=== PATIENT | female | born 1965 | race Caucasian/White ===

== ENCOUNTER 2017-04-04 17:46 | Emergency (ER) | payer OTHER ==
[~2017-04-04] VITALS: Ht 162.6 cm; Wt 73.1 kg
[~2017-04-04 17:46] MED LIST: AMBIEN10 MG PO; BACTROBAN 2%20 MG/GM NS; BENZTROPINE MESY2 MG PO; BUSPAR5 MG PO; DEPAKOTE PO; DEPAKOTE500 M1 PO; EFFEXOR-XR150 MG PO; EFFEXOR37.5 MG PO; GEODON60 MG PO; LEVAQUIN500 MG PO; NORCO 325 MG-7.1 TAB PO; NORCO 5/325 MG1 TAB PO; PROBIOTIC FORMU1 CAP PO; PROTONIX40 MG PO; PROZAC40 MG PO; REMERON15 MG PO; REMERON30 MG PO; SEROQUEL200 MG PO; SEROQUEL300 MG PO; WELLBUTRIN100 MG PO; XANAX0.5 MG PO; ZYPREXA5 MG PO
[2017-04-04 17:57] VITALS: BP 149/95
[2017-04-04] MEDS: PROMETHAZINE 25 MG/ML VIAL IM ONE (20:00)
[2017-04-04] MEDS: HYDROmorphone PFS 2 MG/ML SYR IVP ONE (20:00)
[2017-04-04] MEDS: NACL 0.9% 1,000 ML IV SCH (20:00)
[2017-04-04] MEDS: fentaNYL 0.05 MG/ML VIAL IVP ONE (20:28)
[2017-04-04 20:43] VITALS: BP 135/87
== END 2017-04-04 20:44 | disposition home or self-care (01) ==
LOC: MED 17:46
DX: N20.0 Calculus of kidney (principal); R03.0 Elevated blood-pressure reading, without diagnosis of hypertension; Z71.6 Tobacco abuse counseling; Z88.2 Allergy status to sulfonamides; Z88.8 Allergy status to other drugs, medicaments and biological substances; Z79.899 Other long term (current) drug therapy
CPT/HCPCS: 36415; 74176; 80053; 81001; 81025; 82150; 83690; 84703; 85025; 96361; 96372; 96374; 96375; 99285; J1170; J2550; J3010; J7030

== ENCOUNTER 2017-04-07 19:21 | Emergency (ER) | payer OTHER ==
[~2017-04-07] VITALS: Ht 162.6 cm; Wt 74.8 kg
[~2017-04-07 19:21] MED LIST changes: +ACET-2863 PO; +ALPR0.5T2 PO; -AMBIEN10 MG PO; -BACTROBAN 2%20 MG/GM NS; -BENZTROPINE MESY2 MG PO; -BUSPAR5 MG PO; -DEPAKOTE PO; -DEPAKOTE500 M1 PO; -EFFEXOR-XR150 MG PO; -EFFEXOR37.5 MG PO; -GEODON60 MG PO; -LEVAQUIN500 MG PO; +LEVO500T6 PO; +MIRT30TA PO; -NORCO 325 MG-7.1 TAB PO; -NORCO 5/325 MG1 TAB PO; +NUTR1CAP PO; +PANT40EC PO; -PROBIOTIC FORMU1 CAP PO; -PROTONIX40 MG PO; -PROZAC40 MG PO; +QUET200T PO; +QUET300T1 PO; -REMERON15 MG PO; -REMERON30 MG PO; -SEROQUEL200 MG PO; -SEROQUEL300 MG PO; +VENL150C1 PO; -WELLBUTRIN100 MG PO; -XANAX0.5 MG PO; -ZYPREXA5 MG PO
--- NOTE | 2017-04-07 19:31 | NUR ---
BIBA TO ER BED 5
--- NOTE | 2017-04-07 19:34 | NUR ---
51 Y/O F BIBA W/C/O R FLANK PAIN SINCE 2 DAYS AGO. PT STATES WAS SEEN 2 DAYS AGO IN THIS HOSPITAL AND DIAGNOSED WITH KIDNEY STONES. DENIES ANY N/V, VSS. ER MADE AWARE.
[2017-04-07 19:35] VITALS: BP 126/86
[2017-04-07] MEDS ORDERED: NACL 0.9% 1,000 ML IV ONE (19:40)
[2017-04-07 20:00] LABS: BASOPHILS # (AUTO) 0.2 K/uL (0.00-0.22); BASOPHILS % (AUTO) 3.4 % (0.0-2.0); EOSINOPHILS # (AUTO) 0.1 K/uL (0-0.4); EOSINOPHILS % (AUTO) 1.9 % (0.0-4.0); HEMATOCRIT 35.4 % (36-48); HEMOGLOBIN 11.6 g/dL (12.0-16.0); LYMPHOCYTES # (AUTO) 2.1 K/uL (2.5-16.5); LYMPHOCYTES % (AUTO) 37.6 % (20.5-51.1); MEAN CORPUSCULAR HEMOGLOBIN 32 pg (27-31); MEAN CORPUSCULAR HGB CONC 33 g/dL (33-37); MEAN CORPUSCULAR VOLUME 96 fL (80-94); MONOCYTES # (AUTO) 0.5 K/uL (0.8-1.0); MONOCYTES % (AUTO) 8.6 % (1.7-9.3); NEUTROPHILS # (AUTO) 2.6 K/uL (1.8-7.7); NEUTROPHILS % (AUTO) 48.5 % (42.2-75.2); PLATELET COUNT (AUTO) 185 K/uL (140-450); RED BLOOD CELL COUNT(AUTO) 3.68 MIL/uL (4.20-5.40); RED CELL DISTRIBUTION WIDTH 12.6 % (11.6-13.7); WHITE BLOOD COUNT (AUTO) 5.5 K/uL (4.8-10.8)
[2017-04-07 20:05] LABS: APPEARANCE,URINE CLOUDY (CLEAR); BILIRUBIN,URINE NEGATIVE (NEGATIVE); BLOOD, URINE 3+ (NEGATIVE); COLOR,URINE YELLOW (YELLOW); LEUKOCYTE ESTERASE ,URINE TRACE (NEGATIVE); NITRITE, URINE POSITIVE (NEGATIVE); UGLUCOSE NEGATIVE (NEGATIVE)
[2017-04-07 20:09] LABS: RBC,URINE TOO NUMEROUS TO COUN /HPF (0-5); WBC,URINE 6-15 (FEW) /HPF (0-5)
[2017-04-07] MEDS ORDERED: fentaNYL 0.05 MG/ML VIAL IVP ONE (20:10)
[2017-04-07] MEDS ORDERED: LEVOFLOXACIN 500 MG/D5W PREMIX 100 ML IV ONE (20:10)
[2017-04-07 20:14] LABS: PROTHROMBIN TIME 9.8 secs (10.8-13.4)
[2017-04-07 20:22] LABS: ANION GAP 9.7 (8-16); CARBON DIOXIDE 29.8 mmol/L (21-32); CREATININE 1.1 mg/dL (0.6-1.3); POTASSIUM 4.5 mmol/L (3.5-5.1)
[2017-04-07 20:35] LABS: ALBUMIN 3.6 g/dL (3.4-5.0); TOTAL BILIRUBIN 0.3 mg/dL (0.0-1.0)
[2017-04-07] MEDS ORDERED: HYDROmorphone PFS 2 MG/ML SYR IVP ONE (20:45)
--- NOTE | 2017-04-07 21:02 | NUR ---
PT ASKED ME TO CALL HER DAUGHTER CHARBLE FOR A RIDE HOME. CHARBEL'S ETA 30MIN. PT NOTIFIED OF ETA.
--- NOTE | 2017-04-07 21:04 | NUR ---
PT RESTING IN BED, VSS, CURRENTLY RECEIVING IV ANTIBITICS AND IV FLUIDS. NO OTHER S/S OF DISTRESS NOTED AT THE MOMENT.
[2017-04-07 21:14] VITALS: BP 125/74
--- NOTE | 2017-04-07 21:14 | NUR ---
Patient discharged with v/s stable. Written and verbal after care instructions given and explained. Patient alert, oriented and verbalized understanding of instructions. Ambulatory with steady gait. All questions addressed prior to discharge. ID band removed. Patient advised to follow up with PMD. Rx of MACROBID, NORCO, AND TRAMADOL given. Patient educated on indication of medication including possible reaction and side effects. Opportunity to ask questions provided and answered.
== END 2017-04-07 21:14 | disposition home or self-care (01) ==
LOC: MED 19:21
DX: M54.41 Lumbago with sciatica, right side (principal); N39.0 Urinary tract infection, site not specified; Z88.2 Allergy status to sulfonamides; Z88.6 Allergy status to analgesic agent
CPT/HCPCS: 36415; 80053; 81001; 81025; 85025; 85610; 85730; 87086; 96365; 96375; 99284; J1170; J1956; J3010; J7030

== ENCOUNTER 2017-05-27 17:59 | Inpatient (IN) | payer OTHER ==
[~2017-05-27] VITALS: Ht 162.6 cm; Wt 68.0 kg
[2017-05-27 18:06] VITALS: BP 129/79
--- NOTE | 2017-05-27 18:16 | NUR ---
Patient ambulated to bed 2. RN evaluating patient at bedside.
--- NOTE | 2017-05-27 18:40 | NUR ---
flu swab collected
[2017-05-27 18:52] LABS: APPEARANCE,URINE CLEAR (CLEAR); BILIRUBIN,URINE NEGATIVE (NEGATIVE); BLOOD, URINE NEGATIVE (NEGATIVE); COLOR,URINE YELLOW (YELLOW); LEUKOCYTE ESTERASE ,URINE NEGATIVE (NEGATIVE); NITRITE, URINE NEGATIVE (NEGATIVE); UGLUCOSE NEGATIVE (NEGATIVE)
--- NOTE | 2017-05-27 18:55 | NUR ---
c/o suprapubic pain with left flank tenderness-, severe chills generalized bodyaches x today
[2017-05-27] MEDS ORDERED: HYDROmorphone 1 MG/ML AMP IVP ONE ×2 (19:10→19:30)
[2017-05-27] MEDS ORDERED: ONDANSETRON 4 MG/2 ML VIAL IVP ONE (19:10)
[2017-05-27] MEDS ORDERED: NACL 0.9% 1,000 ML IV ONE ×2 (19:10→21:15)
[2017-05-27 19:49] LABS: BASOPHILS # (AUTO) 0.7 K/uL (0.00-0.22); EOSINOPHILS # (AUTO) 0.1 K/uL (0-0.4); HEMATOCRIT 39.7 % (36-48); HEMOGLOBIN 12.8 g/dL (12.0-16.0); LYMPHOCYTES # (AUTO) 1.5 K/uL (2.5-16.5); MEAN CORPUSCULAR HEMOGLOBIN 31 pg (27-31); MEAN CORPUSCULAR HGB CONC 32 g/dL (33-37); MEAN CORPUSCULAR VOLUME 95 fL (80-94); MONOCYTES # (AUTO) 0.8 K/uL (0.8-1.0); NEUTROPHILS # (AUTO) 5.3 K/uL (1.8-7.7); PLATELET COUNT (AUTO) 228 K/uL (140-450); RED BLOOD CELL COUNT(AUTO) 4.17 MIL/uL (4.20-5.40); RED CELL DISTRIBUTION WIDTH 12.3 % (11.6-13.7); WHITE BLOOD COUNT (AUTO) 8.4 K/uL (4.8-10.8)
[2017-05-27 19:58] LABS: PROTHROMBIN TIME 10.2 secs (10.8-13.4)
[2017-05-27 20:10] LABS: ALBUMIN 3.8 g/dL (3.4-5.0); CARBON DIOXIDE 21.5 mmol/L (21-32); CREATININE 1.4 mg/dL (0.6-1.3); POTASSIUM 3.5 mmol/L (3.5-5.1); TOTAL BILIRUBIN 0.3 mg/dL (0.0-1.0)
[2017-05-27] MEDS ORDERED: METOCLOPRAMIDE 10 MG/2 ML INJ VIAL IVP ONE (21:15)
[2017-05-27] MEDS ORDERED: HYDROmorphone PFS 2 MG/ML SYR IVP ONE (21:25)
[2017-05-27] MEDS ORDERED: ONDANSETRON 4 MG/2 ML VIAL IVP PRN (21:35)
[2017-05-27] MEDS ORDERED: LORazepam 2 MG/ML VIAL IM/IVP PRN (21:35)
[2017-05-27] MEDS ORDERED: PANTOPRAZOLE 40 MG INJ VIAL IVP SCH (21:35)
[2017-05-27] MEDS ORDERED: MORPHINE SULFATE 2 MG/ML SYR IVP PRN (21:35)
--- NOTE | 2017-05-27 21:49 | NUR ---
X-Ray at bedside.
[2017-05-27] MEDS ORDERED: ATA25 PO (22:10)
[2017-05-27] MEDS ORDERED: IBUP-2213 PO (22:10)
[2017-05-27] MEDS ORDERED: QUET300T1 PO (22:10)
[2017-05-27] MEDS ORDERED: PAX20 PO (22:10)
[2017-05-27] MEDS ORDERED: GABA300C PO (22:10)
[2017-05-27] MEDS ORDERED: PRAZ1CAP5 PO (22:10)
--- NOTE | 2017-05-27 22:11 | NUR ---
Patient will be admitted to care of DR GARCIA. Admited to MS 118. Will go to room 118. Belongings list completed. Report to
[2017-05-27] MEDS ORDERED: PRE.625 PO (22:13)
[2017-05-27 22:30] VITALS: BP 140/92
--- NOTE | 2017-05-27 22:30 | NUR ---
PT ARRIVED VIA WHEELCHAIR, PT STABLE, NO DISTRESS NOTED, AAOX4, SKIN INTACT, IV TO L AC 20 G, NG TUBE IN PLACE, INTERMITTENT SUCTIONING, CALL LIGHT WITHIN REACH, INITIAL ASSESSMENT DONE, ALL SAFETY PRECAUTION MET, WILL CONTINUE TO MONITOR.
--- NOTE | 2017-05-27 22:45 | NUR ---
PT IV D/C, CATHETER INTACT, NEW IV INSERTED ON THE L HAND 24G, DRESSING CLEAN DRY AND INTACT, INFUSING WELL, PT TOLERATED WELL, LEFT RESTING, NO DISTRESS NOTED, CALL LIGHT WITHIN REACH, WILL CONTINUE TO MONITOR.
[2017-05-27] MEDS ORDERED: LORazepam 2 MG/ML VIAL ONE (23:37)
--- NOTE | 2017-05-27 23:45 | NUR ---
PT WAS AGITATED.TOOK ORDER FOR ATIVAN 0.5 MG IVP.TOOK OUT VIAL OF 2MG,BUT INJECTED 0.5MG.1.5 MG WASTED.
--- NOTE | 2017-05-28 00:18 | NUR ---
TALKED TO DR. GARCIA REGARDING PT HOME MEDICATION, DR TO ORDER 60MG PAXIL PO QD AT HS, AND TO KEEP SEROQUEL 200MG PO BID. WILL PUT IN ORDER AND ADMINISTER MEDICATION PER ORDER.
[2017-05-28] MEDS ORDERED: QUEtiapine FUMARATE 100 MG TAB PO SCH ×3 (00:35→21:00)
[2017-05-28] MEDS ORDERED: PARoxetine 20 MG TAB PO SCH (00:35)
--- NOTE | 2017-05-28 00:58 | NUR ---
DUE MEDICATION GIVEN, PT TOLERATED WELL, NO DISTRESS NOTED, CALL LIGHT WITHIN REACH, WILL CONTINUE TO MONITOR.
[2017-05-28] MEDS: NACL 0.9% 1,000 ML IV SCH ×4 (01:04→23:28)
[2017-05-28] MEDS: HYDROmorphone 1 MG/ML AMP IVP PRN ×5 (01:54→19:43)
--- NOTE | 2017-05-28 01:54 | NUR ---
PT C/O OF PAIN 8/10 ON THE LLQ RADIATING TO THE BACK, PAIN MEDICATION GIVEN, PT TOLERATED WELL, CALL LIGHT WITHIN REACH, WILL CONTINUE TO MONITOR.
--- NOTE | 2017-05-28 06:06 | NUR ---
PT CRYING AND C/O PAIN 8/10 ON THE L ABD RADIATING TO THE BACK, PAIN MEDICATION GIVEN, PT TOLERATED WELL, WILL CONTINUE TO MONITOR.
--- NOTE | 2017-05-28 07:40 | NUR ---
ENDORSED PT TO DAY SHIFT NURSE AILEEN, PT STABLE NO DISTRESS NOTED.
[2017-05-28 07:53] LABS: BASOPHILS # (AUTO) 0.2 K/uL (0.00-0.22); BASOPHILS % (AUTO) 3.2 % (0.0-2.0); EOSINOPHILS # (AUTO) 0.1 K/uL (0-0.4); EOSINOPHILS % (AUTO) 1.3 % (0.0-4.0); HEMATOCRIT 34.4 % (36-48); HEMOGLOBIN 11.3 g/dL (12.0-16.0); LYMPHOCYTES # (AUTO) 1.4 K/uL (2.5-16.5); LYMPHOCYTES % (AUTO) 21.5 % (20.5-51.1); MEAN CORPUSCULAR HEMOGLOBIN 31 pg (27-31); MEAN CORPUSCULAR HGB CONC 33 g/dL (33-37); MEAN CORPUSCULAR VOLUME 96 fL (80-94); MONOCYTES # (AUTO) 0.4 K/uL (0.8-1.0); MONOCYTES % (AUTO) 6.7 % (1.7-9.3); NEUTROPHILS # (AUTO) 4.5 K/uL (1.8-7.7); NEUTROPHILS % (AUTO) 67.3 % (42.2-75.2); PLATELET COUNT (AUTO) 184 K/uL (140-450); RED BLOOD CELL COUNT(AUTO) 3.59 MIL/uL (4.20-5.40); RED CELL DISTRIBUTION WIDTH 12.1 % (11.6-13.7); WHITE BLOOD COUNT (AUTO) 6.6 K/uL (4.8-10.8)
[2017-05-28 08:00] LABS: ANION GAP 12.1 (8-16); CARBON DIOXIDE 22.6 mmol/L (21-32); POTASSIUM 3.7 mmol/L (3.5-5.1)
--- NOTE | 2017-05-28 08:00 | NUR ---
PATIENT HAS BEEN SCREENED AND CATEGORIZED MODERATE NUTRITION RISK. PATIENT WILL BE SEEN WITHIN 3-5 DAYS OF ADMISSION. 05/30/17 - 06/01/17 JYOTI WHALEY MBA, RD
--- NOTE | 2017-05-28 08:00 | NUR ---
PT RECEIVED FROM [facility] NURSE, PT IN BED AWAKE ALERT AND ORIENTED X4. NO PAIN OR RESP DISTRESS NOTED. PT IA RESPONSIVE TO VERBAL COMMAND WELL. PT IS NPO AT PRESENT. IV FLUID INFUSING ORDERED. V/S STABLE.
[2017-05-28 08:09] LABS: MAGNESIUM 1.6 mg/dL (1.8-2.4); PHOSPHORUS 3.4 mg/dL (2.5-4.9); TOTAL BILIRUBIN 0.3 mg/dL (0.0-1.0)
[2017-05-28 08:45] VITALS: BP 98/63
[2017-05-28] MEDS: VENLAFAXINE XR 75 MG CAPER PO SCH (09:20)
[2017-05-28] MEDS: ENOXAPARIN 30 MG/0.3 ML SYR SUBQ SCH (09:22)
[2017-05-28] MEDS: ACETAMINOPHEN 325 MG TAB PO PRN (09:23)
[2017-05-28] MEDS ORDERED: hydrOXYzine HCL 25 MG TAB PO PRN (13:30)
--- NOTE | 2017-05-28 14:05 | NUR ---
PT UP SITTING IN BED HAVING CLEAR LIQUID DIET. ORDERS FOR PT BE TO DC HOME TODAY IF ABLE TO TOLERATE DIET WELL. NO N/V AT THIS TIME.
[2017-05-28 16:00] VITALS: BP 100/58
[2017-05-28] MEDS: GABAPENTIN 300 MG CAP PO SCH (18:17)
--- NOTE | 2017-05-28 18:50 | NUR ---
PT WAS UNABLE TO TOLERATE CLEAR LIQUIDS WELL. PT VOMITED 50ML OF GREENISH JELLO AFTER EATING FOR THE FIRST TIME. ZOFRAN 4 MG IV WAS GIVEN. DR EMMANUEL WA STILL AT THE STATION AND WAS INFORMED. DISCHARGE ON HOLD. PT IS CURRENTLY IN BED TALKING TO HER . NO ACUTE DISTRESS NOTED. V/S STABLE.
--- NOTE | 2017-05-28 19:20 | NUR ---
RECEIVED BEDSIDE REPORT FROM DAY SHIFT NURSE AILEEN RN, PT STABLE NO DISTRESS NOTED, AAOX4, IV WAS DISCONNECTED, CURRENTLY REPORTED OF PAIN TO THE L ABD OF 02/10, WILL MEDICATE WHEN IV HAS BEEN INSERTED, INITIAL ASSESSMENT DONE, ALL SAFETY PRECAUTION MET, FAMILY BY BEDSIDE, CALL LIGHT WITHIN REACH, WILL CONTINUE TO MONITOR.
--- NOTE | 2017-05-28 19:27 | NUR ---
NEW IV INSERTED, PT TOLERATED WELL, NO DISTRESS NOTED, CALL LIGHT WITHIN REACH, WILL CONTINUE TO MONITOR.
[2017-05-28] MEDS: QUEtiapine FUMARATE 100 MG TAB PO SCH (20:54)
[2017-05-28] MEDS: MIRTAZAPINE 15 MG TAB PO SCH (20:55)
[2017-05-28] MEDS ORDERED: MAG SULF 2000 MG/WATER PREMIX 50 ML IV ONE (20:55)
[2017-05-28] MEDS: PARoxetine 20 MG TAB PO SCH (20:55)
[2017-05-28] MEDS: LORazepam 2 MG/ML VIAL IM/IVP PRN (20:56)
[2017-05-28] MEDS ORDERED: MAG SULF 2000 MG/WATER PREMIX 50 ML IV SCH (20:56)
--- NOTE | 2017-05-28 20:56 | NUR ---
DUE MEDICATION GIVEN, PT TOLERATED WELL, CALL LIGHT WITHIN REACH, WILL CONTINUE TO MONITOR.
--- NOTE | 2017-05-28 23:27 | NUR ---
DUE MEDICATION GIVEN, PT SLEEPING, EASY TO AROUSE, NO DISTRESS NOTED, CALL LIGHT WITHIN REACH. WILL CONTINUE TO MONITOR.
[2017-05-29] VITALS: BP 117/76
--- NOTE | 2017-05-29 02:15 | NUR ---
CHECKED ON PT, PT STABLE, SLEEPING, NO S/S OF DISTRESS, CALL LIGHT WITHIN REACH, WILL CONTINUE TO MONITOR.
[2017-05-29] MEDS: NACL 0.9% 1,000 ML IV SCH ×2 (03:41→17:29)
[2017-05-29] MEDS: HYDROmorphone 1 MG/ML AMP IVP PRN ×2 (04:40→08:52)
--- NOTE | 2017-05-29 04:40 | NUR ---
PT C/O OF PAIN ON THE ABD, PARTICULARLY ON THE LEFT SIDE, ACHING AND SORE, 02/10, ADMINISTERED PAIN MEDICATION, PT TOLERATED WELL, CALL LIGHT WITHIN REACH, WILL CONTINUE TO MONITOR.
[2017-05-29] MEDS: QUEtiapine FUMARATE 100 MG TAB PO SCH ×2 (05:38→21:16)
[2017-05-29] MEDS: PANTOPRAZOLE 40 MG TABEC PO SCH (05:38)
--- NOTE | 2017-05-29 07:15 | NUR ---
GAVE BEDSIDE REPORT TO DAY SHIFT NURSE AILEEN RN, ENDORSED PLAN OF CARE TO RN, PT STABLE NO DISTRESS NOTED.
--- NOTE | 2017-05-29 07:50 | NUR ---
PT IN BED AWAKE ALERT AND ORIENTED X4. PT IS RESPONSIVE TO VERBAL COMMAND. NO PAIN OR SOB NOTED. IVF INFUSING ORDERED.
[2017-05-29 08:00] VITALS: BP 112/72
[2017-05-29 08:09] LABS: BASOPHILS # (AUTO) 0.2 K/uL (0.00-0.22); BASOPHILS % (AUTO) 4.4 % (0.0-2.0); EOSINOPHILS # (AUTO) 0.1 K/uL (0-0.4); HEMATOCRIT 34.9 % (36-48); HEMOGLOBIN 11.4 g/dL (12.0-16.0); LYMPHOCYTES # (AUTO) 1.1 K/uL (2.5-16.5); LYMPHOCYTES % (AUTO) 24.7 % (20.5-51.1); MEAN CORPUSCULAR HEMOGLOBIN 31 pg (27-31); MEAN CORPUSCULAR HGB CONC 33 g/dL (33-37); MEAN CORPUSCULAR VOLUME 96 fL (80-94); MONOCYTES # (AUTO) 0.4 K/uL (0.8-1.0); MONOCYTES % (AUTO) 8.6 % (1.7-9.3); NEUTROPHILS # (AUTO) 2.5 K/uL (1.8-7.7); NEUTROPHILS % (AUTO) 60.3 % (42.2-75.2); PLATELET COUNT (AUTO) 139 K/uL (140-450); RED BLOOD CELL COUNT(AUTO) 3.64 MIL/uL (4.20-5.40); RED CELL DISTRIBUTION WIDTH 11.7 % (11.6-13.7); WHITE BLOOD COUNT (AUTO) 4.3 K/uL (4.8-10.8)
[2017-05-29 08:25] LABS: ALBUMIN 2.8 g/dL (3.4-5.0); ANION GAP 9.5 (8-16); CARBON DIOXIDE 25.3 mmol/L (21-32); CREATININE 0.9 mg/dL (0.6-1.3); POTASSIUM 3.8 mmol/L (3.5-5.1); TOTAL BILIRUBIN 0.3 mg/dL (0.0-1.0)
[2017-05-29] MEDS: VENLAFAXINE XR 75 MG CAPER PO SCH (08:53)
[2017-05-29] MEDS: LEVOFLOXACIN 500 MG TAB PO SCH (08:54)
[2017-05-29] MEDS: PRAZOSIN 1 MG CAP PO SCH (08:54)
[2017-05-29] MEDS: GABAPENTIN 300 MG CAP PO SCH ×3 (08:55→17:29)
[2017-05-29] MEDS ORDERED: VENLAFAXINE XR 75 MG CAPER PO SCH (09:00)
--- NOTE | 2017-05-29 09:00 | NUR ---
C/O ABD PAIN 04/12, DILAUDID 1MG IVP GIVEN FOR PAIN. NO COMPLAINT OF N/V
[2017-05-29] MEDS: ENOXAPARIN 30 MG/0.3 ML SYR SUBQ SCH (09:02)
[2017-05-29] MEDS: ACETAMINOPHEN 325 MG TAB PO PRN (15:08)
[2017-05-29] MEDS ORDERED: SODIUM PHOSPHATE 118 ML ENEM RC PRN (15:10)
[2017-05-29 16:00] VITALS: BP 115/68
[2017-05-29] MEDS: HYDROmorphone PFS 2 MG/ML SYR IVP PRN (17:30)
--- NOTE | 2017-05-29 19:30 | NUR ---
RECEIVED BEDSIDE REPORT FROM DAY SHIFT NURSE AILEEN RN, PT STABLE, NO DISTRESS NOTED, IV TO L FA 24 G RUNNING NS @ 50ML/HR, INFUSING WELL, PT REPORTED HAVING PAIN OF 8/10 ON THE STOMACH, REPOSITIONED PT AND GAVE HOT TOWEL, MEDICATION IS NOT DUE YET, WILL MEDICATE WHEN IT IS DUE, PT STATED UNDERSTANDING, SKIN INTACT, INITIAL ASSESSMENT DONE, ALL SAFETY PRECAUTION MET, CALL LIGHT WITHIN REACH, WILL CONTINUE TO MONITOR.
--- NOTE | 2017-05-29 20:44 | NUR ---
PT IS MEDICATED WITH DILAUDID 1MG IVP FOR ABD PAIN. PT TOLERATED CLEAR LIQUID DIET WITHOUT ANY N/V. PT BEING ENCOURAGED TO AMBULATE IN THE ROOM. OFFERED ENEMA TO PT BUT REFUSED, SHE WANTS TO TRY LESS INVASIVE MEDS FIRST. ORDER FOR MOM OBTAINED FROM [facility]
--- NOTE | 2017-05-29 20:45 | NUR ---
PT STANDING IN THE MIDDLE OF THE HALLWAY CRYING LOUDLY BECAUSE OF ABD PAIN. DR MARIA DEL CARMEN COCHRAN CALLED FOR MORE PAIN ORDERS. MORPHINE SULFATE 2MG IVP GIVEN AT 1121 FOR PAIN 04/12
--- NOTE | 2017-05-29 20:47 | NUR ---
PT KEEPS C/O ABD PAIN DOES DOES NOT GO AWAY. PT ANTOINE ANY N/V. TYLENOL 650MG PO GIVEN FOR PAIN 11/10. PT REMAINS NPO FOR NOW. DR EMMANUEL IS AT THE STATION MAKING ROUNDS.
[2017-05-29] MEDS ORDERED: MAGNESIUM HYDROXIDE 2400 MG/30 ML UDC PO PRN (21:00)
[2017-05-29] MEDS: PARoxetine 20 MG TAB PO SCH (21:15)
[2017-05-29] MEDS: MIRTAZAPINE 15 MG TAB PO SCH (21:16)
--- NOTE | 2017-05-29 21:16 | NUR ---
DUE MEDICATION GIVEN, PT TOLERATED WELL, STABLE, NO DISTRESS NOTED, CALL LIGHT WITHIN REACH, WILL CONTINUE TO MONITOR.
[2017-05-29] MEDS: LORazepam 2 MG/ML VIAL IM/IVP PRN (21:47)
--- NOTE | 2017-05-29 21:47 | NUR ---
PT C/O OF PAIN 10/10 AND FEELING AGITATED, REQUESTED ATIVAN, PAIN MEDICATION IS NOT DUE, ATIVAN WAS GIVEN, PT TOLERATED WELL, NO DISTRESS NOTED, CALL LIGHT WITHIN REACH, WILL CONTINUE TO MONITOR.
--- NOTE | 2017-05-29 22:47 | NUR ---
PT SLEEPING, EASY TO AROUSE, NO DISTRESS NOTED, CALL LIGHT WITHIN REACH, WILL CONTINUE TO MONITOR.
[2017-05-29 22:56] LABS: BARBITURATE, URINE NEG. ng/ml (NEG <=200); BENZODIAZEPINE, URINE NEG. ng/mL (NEG <=200); CANNABINOID, URINE POS. ng/mL (NEG <=50); COCAINE, URINE NEG. ng/mL (NEG <=300); OPIATE, URINE POS. ng/mL (NEG <=2000); PHENCYCLIDINE SCREEN,URINE NEG. ng/mL (NEG <=25)
[2017-05-30] VITALS: BP 140/95
--- NOTE | 2017-05-30 00:02 | NUR ---
PT C/O OF PAIN 9/10 ON THE STOMACH, PAIN MEDICATION GIVEN, PT STABLE, NO DISTRESS NOTED.
[2017-05-30] MEDS: HYDROmorphone PFS 2 MG/ML SYR IVP PRN ×3 (00:42→13:11)
--- NOTE | 2017-05-30 03:20 | NUR ---
CHECKED ON PT, PT SLEEPING, EASY TO AROUSE, REPORTED HAVING NO PAIN AT THIS MOMENT, PT STABLE, CALL LIGHT WITHIN REACH, WILL CONTINUE TO MONITOR.
[2017-05-30] MEDS: PANTOPRAZOLE 40 MG TABEC PO SCH (05:49)
[2017-05-30] MEDS: QUEtiapine FUMARATE 100 MG TAB PO SCH (05:50)
--- NOTE | 2017-05-30 05:50 | NUR ---
DUE MEDICATION GIVEN, PT TOLERATED WELL, NO DISTRESS NOTED, CALL LIGHT WITHIN REACH, WILL CONTINUE TO MONITOR.
[2017-05-30] MEDS: NACL 0.9% 1,000 ML IV SCH (05:56)
--- NOTE | 2017-05-30 06:44 | NUR ---
PT C/O OF PAIN IN THE ABD OF 01/10, PAIN MEDICATION GIVEN, PT TOLERATED WELL, NO DISTRESS NOTED, CALL LIGHT WITHIN REACH.
--- NOTE | 2017-05-30 07:11 | NUR ---
ASSUMED CONTINUITY OF CARE. NO SIGNS AND SYMPTOMS OF ACUTE DISTRESS NOTED. INITIAL ASSESSMENT DONE. EXPLAINED DIAGNOSIS, PLAN OF CARE, PAIN MANAGEMENT TEACHING, USE OF CALL LIGHT/BED/TV/BATHROOM. VERBALIZED UNDERSTANDING. CALL LIGHT WITHIN REACH.
--- NOTE | 2017-05-30 07:11 | NUR ---
GAVE BEDSIDE REPORT TO DAY SHIFT NURSE, PT STABLE, NO DISTRESS NOTED, SLEEPING, CALL LIGHT WITHIN REACH.
--- NOTE | 2017-05-30 07:15 | NUR ---
Patient's Plan of Care was discussed and reviewed with EXTENSION SPECIALIST: Carolina XIONG
[2017-05-30 08:00] VITALS: BP 117/72
[2017-05-30] MEDS ORDERED: PSYLLIUM 12.2 GM/PKT PO SCH (09:00)
[2017-05-30] MEDS ORDERED: DOCUSATE SODIUM 100 MG GELCAP PO SCH (09:00)
[2017-05-30] MEDS: GABAPENTIN 300 MG CAP PO SCH ×3 (09:16→17:00)
[2017-05-30] MEDS: LEVOFLOXACIN 500 MG TAB PO SCH (09:17)
[2017-05-30] MEDS: PRAZOSIN 1 MG CAP PO SCH (09:17)
[2017-05-30] MEDS: VENLAFAXINE XR 75 MG CAPER PO SCH (09:17)
[2017-05-30] MEDS: ENOXAPARIN 30 MG/0.3 ML SYR SUBQ SCH (09:22)
--- NOTE | 2017-05-30 10:30 | NUR ---
EXPLAINED ABOUT MRSA NARES POSITIVE RESULTS AND ISOLATION PRECAUTION EDUCATION. VERBALIZED UNDERSTANDING.
[2017-05-30 12:00] VITALS: BP 119/75
--- NOTE | 2017-05-30 14:03 | NUR ---
CM NOTE INITIAL REVIEW FAXED TO [facility] [phone] CM DECEMBER # [phone]
--- NOTE | 2017-05-30 14:30 | NUR ---
MAGNOLIA GREEN CAME, CHECKED PT. CHART AND SEEN PT.
[2017-05-30] MEDS: LORazepam 2 MG/ML VIAL IM/IVP PRN (15:47)
--- NOTE | 2017-05-30 16:31 | NUR ---
1500 SPOKE WITH [facility] REGARDING PT REQUESTING TRANSPORTATION TO GO HOME. PER DECEMBER TRANSPORT ONLY COVERED IF PT REQUIRES GURNEY. PER PT SHE IS SURE HER INSURANCE PROVIDES TRANSPORTATION AND STATED SHE HAS HAD IT COVERED IN THE PAST. AFTER THIS TREASURY ASSOCIATE CALLED NUMEROUS NUMBERS WAS INFORMED THAT [facility] NEEDED TO BE ACCESSED AND A FORM PRINTED AND FILLED OUT AND SENT TO SPECIFIED FAX THIS WAS RELAYED BY [facility]SP[facility] THAT THIS TREASURY ASSOCIATE WAS TRANSFERRED TO BY [facility] [facility]. WHEN REVIEWED WHICH WOULD BE A MINIMUM OF 2 HRS THEN TRANSPORT WILL BE CALLED. THIS WAS TOLD TO THIS TREASURY ASSOCIATE AT 1630.
--- NOTE | 2017-05-30 17:00 | NUR ---
EXPLAINED ABOUT MD D/C ORDER, D/C INSTRUCTIONS AND TEACHING, MD FOLLOW-UP, PAIN MANAGEMENT TEACHING, DIAGNOSIS, DIET, MD D/C PRESCRIPTION LIST EDUCATION. VERBALIZED UNDERSTANDING. CALL LIGHT WITHIN REACH.
--- NOTE | 2017-05-30 18:05 | NUR ---
D/C HOME VIA WHEELCHAIR WITH ASSISTANCE FROM KALANI MENDEZ PROVIDED WITH TAXI VOUCHER FROM [employer]. AWAKE, ALERT, AND ORIENTED X4. SPEECH CLEAR. NO C/O PAIN. NO SOB, NOTED. IN STABLE CONDITION. INFORMED CHARGE NURSE AZRA CLEANING.
== END 2017-05-30 18:05 | disposition home or self-care (01) | DRG 247 ==
LOC: MED 17:59 → MTU 21:39
PROVIDERS: ADMIT Hospitalist; ATTEND Hospitalist
DX: K56.7 Ileus, unspecified (principal); F31.9 Bipolar disorder, unspecified; K59.00 Constipation, unspecified; F43.10 Post-traumatic stress disorder, unspecified; Z88.6 Allergy status to analgesic agent; Z88.2 Allergy status to sulfonamides
CPT/HCPCS: 36415; 71010; 80053; 80305; 81003; 82150; 83605; 83690; 83735; 84100; 84484; 85025; 85610; 87040; 87081; 87804; 93005; 96361; 96374; 96375; 96376; 99285; C9113; J1170; J1650; J2060; J2270; J2405; J2765; J3475; J7030; J7060; Q0092

== ENCOUNTER 2017-08-05 15:29 | Emergency (ER) | payer SELFPAY ==
[~2017-08-05 15:29] MED LIST changes: -ACET-2863 PO; +ATA25 PO; +GABA300C PO; +PAX20 PO; +PRAZ1CAP5 PO; +PRE.625 PO
--- NOTE | 2017-08-05 15:55 | NUR ---
NA IN LOBBY. WILL TRY AGAIN.
--- NOTE | 2017-08-05 16:10 | NUR ---
NA. WILL CALL TO F/U.
--- NOTE | 2017-08-05 16:30 | NUR ---
PATIENT LEFT WITHOUT BEING SEEN BY DR. JOSEPH. NO FURTHER CARE PROVIDED FOR PATIENT.
[2017-08-05] MEDS ORDERED: ONDANSETRON ODT 4 MG TABLET (17:24)
== END 2017-08-05 16:30 | disposition left against medical advice (07) ==
LOC: MED 15:29
DX: R51 Headache (principal); Z53.21 Procedure and treatment not carried out due to patient leaving prior to being seen by health care provider

== ENCOUNTER 2017-08-05 17:02 | Emergency (ER) | payer OTHER ==
[~2017-08-05] VITALS: Ht 162.6 cm; Wt 71.7 kg
[2017-08-05 17:16] VITALS: BP 123/85
[2017-08-05] MEDS ORDERED: ONDANSETRON ODT 4 MG TABLET (17:24)
--- NOTE | 2017-08-05 17:27 | NUR ---
WARM PACK APPLIED TO NASAL AREA FOR COMFORT.
--- NOTE | 2017-08-05 18:29 | NUR ---
PATIENT AMBULATED TO ER BED 4
--- NOTE | 2017-08-05 18:50 | NUR ---
52/F C/O R NOSE MRSA INFECTION X2DAYS. PT STS PAIN IS RADIATING TO RIGHT SIDE FACE. ALSO C/O BLADDER PAIN WELL. DENIES FEVER, PT STS TAKING TYLENOL AND MOTRIN AROUND THE CLOCK. AAOx4, PERRLA, BREATHING EVEN AND UNLABORED. ERMD NOTIFIED OF PATIENT STATUS.
--- NOTE | 2017-08-05 19:25 | NUR ---
Patient being evaluated by physician at bedside.
--- NOTE | 2017-08-05 19:26 | NUR ---
Pt report given to KAMI ROY. Transfer of care at this time.
[2017-08-05] MEDS ORDERED: oxyCODONE/APAP 5/325 MG 1 TAB TAB PO ONE (19:35)
[2017-08-05] MEDS ORDERED: cefTRIAXone 1,000 MG in LIDOCAINE MPF 1% - **ER/OR** 2.1 ML IM ONE (19:35)
--- NOTE | 2017-08-05 20:37 | NUR ---
Patient discharged with v/s stable. Written and verbal after care instructions given and explained. Patient alert, oriented and verbalized understanding of instructions. Ambulatory with steady gait. All questions addressed prior to discharge. ID band removed. Patient advised to follow up with PMD. Rx of Percocetg tab, Clindamycin given. Patient educated on indication of medication including possible reaction and side effects. Opportunity to ask questions provided and answered.
[2017-08-05 20:55] VITALS: BP 123/85
== END 2017-08-05 20:37 | disposition home or self-care (01) ==
LOC: MED 17:02
DX: J34.0 Abscess, furuncle and carbuncle of nose (principal); B37.3 Candidiasis of vulva and vagina; F17.210 Nicotine dependence, cigarettes, uncomplicated; Z79.899 Other long term (current) drug therapy; Z88.2 Allergy status to sulfonamides; Z88.8 Allergy status to other drugs, medicaments and biological substances
CPT/HCPCS: 81002; 81025; 96372; 99283; J0696; J2001

== ENCOUNTER 2017-09-15 15:59 | Inpatient (IN) | payer OTHER ==
[~2017-09-15] VITALS: Ht 162.6 cm; Wt 74.4 kg
[~2017-09-15 15:59] MED LIST changes: +ACET-9525 PO; -ALPR0.5T2 PO; -ATA25 PO; -GABA300C PO; -LEVO500T6 PO; -MIRT30TA PO; -NUTR1CAP PO; +ONDA4ODT1 PO; -PANT40EC PO; -PRAZ1CAP5 PO; +PRAZ5CAP PO; -PRE.625 PO; -QUET200T PO; -VENL150C1 PO
[2017-09-15 16:29] VITALS: BP 138/56
--- NOTE | 2017-09-15 17:00 | NUR ---
52/F present to ED c/o lower back pain exacerbation x last night with dysuria, urgency, frequency, nausea. 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 AAOx4, perrla, breathing even and unlabored. ermd notified of patient status.
--- NOTE | 2017-09-15 17:20 | NUR ---
Patient being evaluated by physician at bedside.
[2017-09-15] MEDS ORDERED: ONDANSETRON 4 MG/2 ML VIAL IVP ONE (17:30)
[2017-09-15] MEDS ORDERED: MORPHINE SULFATE 4 MG/ML SYR IVP ONE (17:30)
[2017-09-15] MEDS ORDERED: NACL 0.9% 1,000 ML IV ONE ×2 (17:30→19:15)
[2017-09-15 17:42] LABS: APPEARANCE,URINE SL CLOUDY (CLEAR); BILIRUBIN,URINE NEGATIVE (NEGATIVE); BLOOD, URINE 3+ (NEGATIVE); COLOR,URINE YELLOW (YELLOW); LEUKOCYTE ESTERASE ,URINE NEGATIVE (NEGATIVE); NITRITE, URINE NEGATIVE (NEGATIVE); UGLUCOSE NEGATIVE (NEGATIVE)
[2017-09-15 17:50] LABS: RBC,URINE 80-100 /HPF (0-5); WBC,URINE 0-5 (RARE) /HPF (0-5)
[2017-09-15] MEDS ORDERED: LORazepam 2 MG/ML VIAL IVP ONE (18:25)
[2017-09-15 18:57] LABS: BASOPHILS # (AUTO) 0.2 K/uL (0.00-0.22); BASOPHILS % (AUTO) 4.3 % (0.0-2.0); EOSINOPHILS # (AUTO) 0.1 K/uL (0-0.4); EOSINOPHILS % (AUTO) 1.2 % (0.0-4.0); HEMATOCRIT 31.9 % (36-48); HEMOGLOBIN 10.7 g/dL (12.0-16.0); LYMPHOCYTES % (AUTO) 17.2 % (20.5-51.1); MEAN CORPUSCULAR HEMOGLOBIN 31 pg (27-31); MEAN CORPUSCULAR HGB CONC 34 g/dL (33-37); MEAN CORPUSCULAR VOLUME 92 fL (80-94); MONOCYTES # (AUTO) 0.6 K/uL (0.8-1.0); MONOCYTES % (AUTO) 10.2 % (1.7-9.3); NEUTROPHILS # (AUTO) 3.9 K/uL (1.8-7.7); NEUTROPHILS % (AUTO) 67.1 % (42.2-75.2); PLATELET COUNT (AUTO) 242 K/uL (140-450); RED BLOOD CELL COUNT(AUTO) 3.46 MIL/uL (4.20-5.40); RED CELL DISTRIBUTION WIDTH 13.3 % (11.6-13.7); WHITE BLOOD COUNT (AUTO) 5.8 K/uL (4.8-10.8)
[2017-09-15 18:58] LABS: ANION GAP 14.1 (8-16); CARBON DIOXIDE 23.8 mmol/L (21-32); CREATININE 1.2 mg/dL (0.6-1.3); POTASSIUM 3.9 mmol/L (3.5-5.1)
[2017-09-15 19:04] LABS: ALBUMIN 3.3 g/dL (3.4-5.0); TOTAL BILIRUBIN 0.3 mg/dL (0.0-1.0)
[2017-09-15] MEDS ORDERED: HYDROmorphone 1 MG/ML AMP IVP ONE (19:05)
--- NOTE | 2017-09-15 19:15 | NUR ---
REPORT RECEIVED FROM KAMI SHELL
--- NOTE | 2017-09-15 19:18 | NUR ---
Pt report given to addi seals. Transfer of care at this time.
[2017-09-15] MEDS ORDERED: HYDROmorphone PFS 2 MG/ML SYR ONE (19:23)
[2017-09-15] MEDS ORDERED: MORPHINE SULFATE 4 MG/ML SYR IVP PRN (19:45)
[2017-09-15] MEDS ORDERED: ACETAMINOPHEN 325 MG TAB PO PRN (19:45)
[2017-09-15] MEDS ORDERED: ONDANSETRON 4 MG/2 ML VIAL IVP PRN (19:45)
[2017-09-15 19:59] LABS: CHOL/HDL RATIO 1.9 (1-4.5)
--- NOTE | 2017-09-15 20:20 | NUR ---
Patient will be admitted to care of DR EMMANUEL. Admited to M/S. Will go to room 118. Belongings list completed. Report to KAMI GARZA.
--- NOTE | 2017-09-15 21:30 | NUR ---
Admitted from ER , with chief complaint of ABDOMINAL PAIN , 52 y/o ,Female, Anxious, PT AAOX4, NO S/S OF ACUTE DISTRESS. PT DENIES PAIN AT THIS TIME. PT PULLED IV OUT WHILE WAITING TO BE TRANSFERRED, PT oriented to call light, bed, phone,television, bathroom, smoking policy,visiting hours, procedures, ID bracelet on. Belongings list checked. CALL LIGHT WITHIN REACH. SAFETY MEASURES ENSURED. WILL CONTINUE TO MONITOR.
[2017-09-15 22:39] VITALS: BP 155/89
[2017-09-15] MEDS: NACL 0.9% 1,000 ML IV SCH (23:42)
[2017-09-16] VITALS: BP 131/77
[2017-09-16] MEDS: MORPHINE SULFATE 4 MG/ML SYR IVP PRN ×2 (00:14→04:17)
--- NOTE | 2017-09-16 03:39 | NUR ---
PT SLEEPING IN BE. NO S/S OF ACUTE DISTRESS. WILL CONTINUE TO MONITOR.
[2017-09-16] MEDS: NACL 0.9% 1,000 ML IV SCH (05:17)
--- NOTE | 2017-09-16 06:37 | NUR ---
PATIENT HAS BEEN SCREENED AND CATEGORIZED LOW NUTRITION RISK. PATIENT WILL BE SEEN WITHIN 7 DAYS OF ADMISSION. 09/21/17 DELMAR WEBBER MS, RDN
[2017-09-16 06:48] LABS: EOSINOPHILS # (AUTO) 0.1 K/uL (0-0.4); EOSINOPHILS % (AUTO) 2.2 % (0.0-4.0); HEMOGLOBIN 10.4 g/dL (12.0-16.0); RED CELL DISTRIBUTION WIDTH 13.4 % (11.6-13.7)
[2017-09-16 06:55] LABS: BASOPHILS # (AUTO) 0.3 K/uL (0.00-0.22); BASOPHILS % (AUTO) 4.3 % (0.0-2.0); HEMATOCRIT 31.2 % (36-48); LYMPHOCYTES % (AUTO) 29.6 % (20.5-51.1); MEAN CORPUSCULAR HEMOGLOBIN 32 pg (27-31); MEAN CORPUSCULAR HGB CONC 34 g/dL (33-37); MEAN CORPUSCULAR VOLUME 95 fL (80-94); MONOCYTES # (AUTO) 0.8 K/uL (0.8-1.0); MONOCYTES % (AUTO) 11.9 % (1.7-9.3); NEUTROPHILS # (AUTO) 3.4 K/uL (1.8-7.7); PLATELET COUNT (AUTO) 226 K/uL (140-450); RED BLOOD CELL COUNT(AUTO) 3.28 MIL/uL (4.20-5.40); WHITE BLOOD COUNT (AUTO) 6.6 K/uL (4.8-10.8)
[2017-09-16 07:20] LABS: ALBUMIN 3.3 g/dL (3.4-5.0); ANION GAP 10.9 (8-16); CREATININE 1.2 mg/dL (0.6-1.3); POTASSIUM 3.9 mmol/L (3.5-5.1); TOTAL BILIRUBIN 0.3 mg/dL (0.0-1.0)
[2017-09-16 07:31] VITALS: BP 98/68
--- NOTE | 2017-09-16 07:35 | NUR ---
PT SLEEPING IN BED. NO S/S OF ACUTE DISTRESS. CALL LIGHT WITHIN REACH. SAFETY MEASURES ENSURED. WILL CONTINUE TO MONITOR.
[2017-09-16] MEDS ORDERED: ENOXAPARIN 40 MG/0.4 ML SYR SUBQ SCH (09:00)
[2017-09-16] MEDS ORDERED: ACET-9525 PO (09:57)
--- NOTE | 2017-09-16 10:04 | NUR ---
DR. HARRISON IN TO SEE PT. PLAN OF CARE DISCUSSED. PT VERBALIZED UNDERSTANDING.
--- NOTE | 2017-09-16 10:20 | NUR ---
CM NOTE INITIAL REVIEW FAXED TO [facility] [phone] [place] # [phone]
--- NOTE | 2017-09-16 11:27 | NUR ---
PT CLEARED FOR DISCHARGE. PT TOLERATED FOOD WELL. SON AT BEDSIDE. DISCHARGE INSTRUCTIONS PROVIDED. PT VERBALIZED UNDERSTANDING. IV TAKEN OUT. TIP INTACT. PT REFUSED WHEELCHAIR AND WALKED TO LOBBY.
== END 2017-09-16 11:15 | disposition home or self-care (01) | DRG 347 ==
LOC: MED 15:59 → MTU 19:45
PROVIDERS: ADMIT Internal Medicine; ATTEND Internal Medicine
DX: M54.9 Dorsalgia, unspecified (principal); N28.89 Other specified disorders of kidney and ureter; G89.29 Other chronic pain; R11.2 Nausea with vomiting, unspecified; R74.8 Abnormal levels of other serum enzymes; Z98.84 Bariatric surgery status; Z88.6 Allergy status to analgesic agent; Z88.2 Allergy status to sulfonamides; Z87.442 Personal history of urinary calculi; Z87.440 Personal history of urinary (tract) infections; Z72.89 Other problems related to lifestyle
CPT/HCPCS: 36415; 80053; 81001; 81025; 83690; 85025; 87081; 96361; 96374; 96375; 99285; J1170; J1650; J2060; J2270; J2405; J7030

== ENCOUNTER 2017-09-30 21:34 | Inpatient (IN) | payer OTHER ==
[~2017-09-30] VITALS: Ht 162.6 cm; Wt 76.3 kg
[2017-09-30 21:39] VITALS: BP 134/91
--- NOTE | 2017-09-30 21:48 | NUR ---
PATIENT PRESENTS TO ED WITH FLANK PAIN . PT STATESC/O VENTURA FLANK PAIN X 2 HOURS AGO, REPORTS DYSURIA AND HEMATURIA X 1 DAY. REPORTS N/V, DENIES FEVER/CHILLS. PMH: MEDULLARY SPONGE KIDNEY, KIDNEY STONES, DEPRESSION/ANXIETY, PTSD . AAOX4 WITH EVEN AND STEADY GAIT; PATIENT STATES PAIN OF 9/10 AT THIS TIME; PATIENT POSITIONED FOR COMFORT; HOB ELEVATED; BEDRAILS UP X2; BED DOWN. ER MD MADE AWARE OF PT STATUS.
[2017-09-30] MEDS ORDERED: NACL 0.9% 500 ML IV ONE (21:59)
[2017-09-30] MEDS ORDERED: ONDANSETRON 4 MG/2 ML VIAL IVP ONE (22:00)
--- NOTE | 2017-09-30 22:00 | NUR ---
Patient being evaluated by physician at bedside.
[2017-09-30] MEDS ORDERED: fentaNYL 0.05 MG/ML VIAL IVP ONE ×2 (22:20→23:10)
[2017-09-30 23:54] LABS: HEMATOCRIT 34.4 % (36-48); HEMOGLOBIN 11.3 g/dL (12.0-16.0); MEAN CORPUSCULAR HEMOGLOBIN 31 pg (27-31); MEAN CORPUSCULAR HGB CONC 33 g/dL (33-37); MEAN CORPUSCULAR VOLUME 94.7 fL (80-94); PLATELET COUNT (AUTO) 82 K/uL (140-450); RED BLOOD CELL COUNT(AUTO) 3.63 MIL/uL (4.20-5.40); RED CELL DISTRIBUTION WIDTH 12.6 % (11.6-13.7); WHITE BLOOD COUNT (AUTO) 9.4 K/uL (4.8-10.8)
[2017-10-01 00:06] LABS: ANION GAP 18.4 (8-16); CREATININE 1.1 mg/dL (0.6-1.3); POTASSIUM 4.4 mmol/L (3.5-5.1)
[2017-10-01 00:07] LABS: EOSINOPHILS % (MANUAL) 1 % (0-4); LYMPHOCYTES % (MANUAL) 12 % (20-46); MONOCYTES % (MANUAL) 6 % (5-12)
[2017-10-01 00:14] LABS: ALBUMIN 3.3 g/dL (3.4-5.0); TOTAL BILIRUBIN 0.2 mg/dL (0.0-1.0)
[2017-10-01 00:30] LABS: PROTHROMBIN TIME 9.2 secs (10.8-13.4)
[2017-10-01] MEDS ORDERED: NACL 0.9% 1,000 ML IV SCH (00:48)
[2017-10-01] MEDS ORDERED: ONDANSETRON 4 MG/2 ML VIAL IVP PRN (00:50)
[2017-10-01] MEDS ORDERED: ACETAMINOPHEN 325 MG TAB PO PRN (00:50)
[2017-10-01] MEDS ORDERED: MORPHINE SULFATE 4 MG/ML SYR IVP PRN (00:50)
[2017-10-01] MEDS ORDERED: LACTULOSE 20 GM/30 ML UDC PO PRN (00:50)
[2017-10-01] MEDS ORDERED: fentaNYL 0.05 MG/ML VIAL IVP ONE (01:00)
[2017-10-01] MEDS ORDERED: ONDANSETRON 4 MG/2 ML VIAL IVP ONE (01:00)
--- NOTE | 2017-10-01 01:35 | NUR ---
Patient will be admitted to care of DR. GARCIA. Admited to MED SURG. Will go to room 117. Belongings list completed. Report to CHRISTINE MCCLURE.
[2017-10-01 01:40] VITALS: BP 121/79
--- NOTE | 2017-10-01 01:45 | NUR ---
ADMITTED PATIENT TO THE MED-SURG UNIT, PATIENT AWAKE ALERT ORIENTED X4, NO S/S OF DISTRESS NOTED, RESPIRATION EVEN AND UNLABORED, ON ROOM AIR. IV PATENT AND INTACT, INFUSING NS AT 100ML/HR. PLAN OF CARE DISCUSSED, PATIENT VERBALIZED UNDERSTANDING, CALL LIGHT WITHIN REACH, SAFETY MEASURE ENSURED, WILL CONTINUE TO MONITOR.
[2017-10-01 01:48] LABS: CHOL/HDL RATIO 2.2 (1-4.5)
--- NOTE | 2017-10-01 03:46 | NUR ---
PATIENT STATED ABDOMINAL PAIN 02/10, BP145/90, HR 61, MORPHINE GIVEN ORDERED, CALL LIGHT WITHIN REACH, SAFETY MEASURE ENSURED, WILL CONTINUE TO MONITOR.
--- NOTE | 2017-10-01 05:21 | NUR ---
PATIENT IS SLEEPING, NO S/S OF DISTRESS NOTED, RESPIRATION EVEN AND UNLABORED, CALL LIGHT WITHIN REACH, SAFETY MEASURE ENSURED, WILL CONTINUE TO MONITOR.
--- NOTE | 2017-10-01 07:07 | NUR ---
ENDORSED PLAN OF CARE TO DAY SHIFT NURSE, PATIENT IS IN STABLE CONDITION.
--- NOTE | 2017-10-01 07:08 | NUR ---
ASSUMED CONTINUITY OF CARE. NO SIGNS AND SYMPTOMS OF ACUTE DISTRESS NOTED. INITIAL ASSESSMENT DONE. RE-ORIENTED TO EVENTS AND SURROUNDINGS. NON-COMPLIANT TO SAFETY. FALL PRECAUTION APPLIED. CALL LIGHT WITHIN REACH. Addendum: 10/01/17 at 1357 by Cabrera Soriano LVN WRONG ENTRY: ENTERED AT WRONG PT..
--- NOTE | 2017-10-01 07:13 | NUR ---
ASSUMED CONTINUITY OF CARE. NO SIGNS AND SYMPTOMS OF ACUTE DISTRESS NOTICED. KEEP COMFORTABLE ON BD. EXPLAINED DIAGNOSIS, PLAN OF CARE, PAIN MANAGEMENT TEACHING, CONTACT ISOLATION PRECAUTION, USE OF CALL LIGHT/BED/TV/BATHROOM. VERBALIZED UNDERSTANDING. CALL LIGHT WITHIN REACH.
[2017-10-01] MEDS: MORPHINE SULFATE 2 MG/ML SYR IVP PRN ×2 (07:42→14:59)
--- NOTE | 2017-10-01 07:45 | NUR ---
DR. GARCIA CAME AND SPOKE TO PT. AT BEDSIDE.
[2017-10-01 08:00] VITALS: BP 119/72
[2017-10-01] MEDS ORDERED: PRAZOSIN HCL 6 MG PO SCH (09:00)
[2017-10-01] MEDS ORDERED: PRAZOSIN 1 MG CAP PO SCH (09:00)
[2017-10-01] MEDS ORDERED: QUEtiapine FUMARATE 100 MG TAB PO SCH (09:00)
--- NOTE | 2017-10-01 09:31 | NUR ---
PATIENT HAS BEEN SCREENED AND CATEGORIZED MODERATE NUTRITION RISK. PATIENT WILL BE SEEN WITHIN 3-5 DAYS OF ADMISSION. 10/03/17-10/05/[address]
[2017-10-01 12:00] VITALS: BP 100/58
[2017-10-01] MEDS ORDERED: ACET-2869 PO (12:04)
[2017-10-01] MEDS ORDERED: ONDA4TAB PO (12:05)
[2017-10-01] MEDS ORDERED: DOCU-299 PO (12:06)
--- NOTE | 2017-10-01 12:45 | NUR ---
PT. TOLERATED BREAKFAST AND LUNCH FOOD WITHOUT C/O N/V.
[2017-10-01 13:33] LABS: BARBITURATE, URINE NEG. ng/ml (NEG <=200); BENZODIAZEPINE, URINE NEG. ng/mL (NEG <=200); CANNABINOID, URINE POS. ng/mL (NEG <=50); COCAINE, URINE NEG. ng/mL (NEG <=300); OPIATE, URINE NEG. ng/mL (NEG <=2000); PHENCYCLIDINE SCREEN,URINE NEG. ng/mL (NEG <=25)
--- NOTE | 2017-10-01 17:00 | NUR ---
D/C HOME VIA WHEELCHAIR. AWAKE, ALERT, AND ORIENTED X4. SPEECH CLEAR. NO C/O PAIN. NO SOB, NOTED. IN STABLE CONDITION. INFORMED CHARGE NURSE MATA CLEANING.
[2017-10-01] MEDS ORDERED: PARoxetine 20 MG TAB PO SCH (21:00)
--- NOTE | 2017-10-05 07:58 | NUR ---
RETRO FAXED ER REPORT AND H&P TO [facility] [phone] NO DISCHARGE SUMMARY.
--- NOTE | 2017-10-17 15:44 | NUR ---
CM NOTE DISCHARGE SUMMARY FAXED TO [facility] / FAX# [phone]
== END 2017-10-01 17:00 | disposition home or self-care (01) | DRG 282 ==
LOC: MED 21:34 → MTU 10-01 00:53
PROVIDERS: ADMIT Hospitalist; ATTEND Hospitalist
DX: K85.90 Acute pancreatitis without necrosis or infection, unspecified (principal); E86.0 Dehydration; F31.9 Bipolar disorder, unspecified; K59.00 Constipation, unspecified; Z88.1 Allergy status to other antibiotic agents; Z88.8 Allergy status to other drugs, medicaments and biological substances; Z87.442 Personal history of urinary calculi; F41.9 Anxiety disorder, unspecified; F43.10 Post-traumatic stress disorder, unspecified; Z79.899 Other long term (current) drug therapy; K86.1 Other chronic pancreatitis; Z91.19 Patient's noncompliance with other medical treatment and regimen
CPT/HCPCS: 36415; 80053; 80305; 83690; 85025; 85610; 85730; 87081; 96374; 96375; 96376; 99285; J2270; J2405; J3010; J7030

== ENCOUNTER 2017-10-02 11:15 | Emergency (ER) | payer OTHER ==
[~2017-10-02] VITALS: Ht 162.6 cm; Wt 75.8 kg
[~2017-10-02 11:15] MED LIST changes: +ACET-2869 PO; -ACET-9525 PO; +DOCU-299 PO; -ONDA4ODT1 PO; +ONDA4TAB PO
[2017-10-02 11:19] VITALS: BP 169/90
--- NOTE | 2017-10-02 11:19 | NUR ---
DR BETH EVALUATING PT AT BEDSIDE
--- NOTE | 2017-10-02 11:19 | NUR ---
PT AMBULATED TO BED 11
[2017-10-02] MEDS ORDERED: NACL 0.9% 1,000 ML IV ONE ×2 (11:22→12:30)
[2017-10-02] MEDS ORDERED: LORazepam 2 MG/ML VIAL IVP ONE (11:25)
[2017-10-02] MEDS ORDERED: MORPHINE SULFATE 4 MG/ML SYR IVP ONE ×2 (11:25→12:30)
[2017-10-02] MEDS ORDERED: ONDANSETRON 4 MG/2 ML VIAL IVP ONE ×2 (11:25→12:30)
--- NOTE | 2017-10-02 11:55 | NUR ---
MEDICATED FOR N/V AND PAIN---WILL CONTINUE TO OBSERVE FOR CHANGES
[2017-10-02 12:04] LABS: BILIRUBIN,URINE NEGATIVE (NEGATIVE); BLOOD, URINE 3+ (NEGATIVE); LEUKOCYTE ESTERASE ,URINE TRACE (NEGATIVE); NITRITE, URINE NEGATIVE (NEGATIVE); PH,URINE 5.5 (5.0-9.0); UGLUCOSE NEGATIVE (NEGATIVE)
[2017-10-02 12:07] LABS: BASOPHILS # (AUTO) 0.3 K/uL (0.00-0.22); BASOPHILS % (AUTO) 4.3 % (0.0-2.0); EOSINOPHILS # (AUTO) 0.1 K/uL (0-0.4); EOSINOPHILS % (AUTO) 0.8 % (0.0-4.0); HEMATOCRIT 36.8 % (36-48); LYMPHOCYTES # (AUTO) 1.3 K/uL (2.5-16.5); LYMPHOCYTES % (AUTO) 19.1 % (20.5-51.1); MEAN CORPUSCULAR HEMOGLOBIN 31 pg (27-31); MEAN CORPUSCULAR HGB CONC 33 g/dL (33-37); MEAN CORPUSCULAR VOLUME 94.2 fL (80-94); MONOCYTES # (AUTO) 0.4 K/uL (0.8-1.0); MONOCYTES % (AUTO) 6.5 % (1.7-9.3); NEUTROPHILS # (AUTO) 4.5 K/uL (1.8-7.7); NEUTROPHILS % (AUTO) 69.3 % (42.2-75.2); PLATELET COUNT (AUTO) 136 K/uL (140-450); RED CELL DISTRIBUTION WIDTH 12.5 % (11.6-13.7); WHITE BLOOD COUNT (AUTO) 6.6 K/uL (4.8-10.8)
[2017-10-02 12:11] LABS: APPEARANCE,URINE HAZY (CLEAR)
[2017-10-02 12:12] LABS: RBC,URINE 20-50 /HPF (0-5); WBC,URINE 0-5 (RARE) /HPF (0-5)
[2017-10-02 12:12] LABS: ANION GAP 15.6 (8-16); CARBON DIOXIDE 23.3 mmol/L (21-32); CREATININE 1.1 mg/dL (0.6-1.3); POTASSIUM 3.9 mmol/L (3.5-5.1)
[2017-10-02 12:13] LABS: COLOR,URINE AMBER (YELLOW)
[2017-10-02 12:18] LABS: ALBUMIN 3.4 g/dL (3.4-5.0); TOTAL BILIRUBIN 0.2 mg/dL (0.0-1.0)
--- NOTE | 2017-10-02 12:50 | NUR ---
c/o recurring spasm type pain to mid abdomen radiating r flank/lower back area with nausea. MD notified
[2017-10-02] MEDS ORDERED: PROMETHAZINE 25 MG/ML VIAL IVP ONE (13:05)
[2017-10-02] MEDS ORDERED: fentaNYL 0.05 MG/ML VIAL IVP ONE (13:10)
--- NOTE | 2017-10-02 13:33 | NUR ---
medicated for nausea and pain control---will continue to observe for pain control
--- NOTE | 2017-10-02 14:55 | NUR ---
consent signed for ct with contrast---
--- NOTE | 2017-10-02 14:56 | NUR ---
pt up to restroom
--- NOTE | 2017-10-02 15:30 | NUR ---
spoke with pt---dc home and f/u with pmd tomorrow, remain in a clear diet
--- NOTE | 2017-10-02 16:29 | NUR ---
Patient discharged with v/s stable. Written and verbal after care instructions given and explained. Patient verbalized understanding. Ambulatory with steady gait. All questions addressed prior to discharge. Advised to follow up with PMD. instructed pt again to continue a clear liquid diet and return to her pmd tomorrow along with all results of today----pt verbalized fear of going home and pain returning--- admits has lissa and marcia at home, adds she feels they are not strong enough instructed she may take 2 tabs every 4-6 hrs as need for pain control and return for any medical emergency.---ambulatory with steady gait. pt request taxi voucher and refuses bus voucher. charge notified
[2017-10-02 16:33] VITALS: BP 126/77
== END 2017-10-02 16:29 | disposition home or self-care (01) ==
LOC: MED 11:15
DX: K85.90 Acute pancreatitis without necrosis or infection, unspecified (principal); Z88.2 Allergy status to sulfonamides; Z88.6 Allergy status to analgesic agent
CPT/HCPCS: 36415; 74177; 80053; 81001; 83690; 85025; 96361; 96374; 96375; 96376; 99285; J2060; J2270; J2405; J2550; J3010; Q9967; 81025; J7030

== ENCOUNTER 2017-10-03 16:57 | Inpatient (IN) | payer OTHER ==
[~2017-10-03] VITALS: Ht 162.6 cm; Wt 74.8 kg
[2017-10-03 17:04] VITALS: BP 121/77
--- NOTE | 2017-10-03 17:55 | NUR ---
52f bib 03/13 "shooting" radiating to bl mid back intermittent abdominal pain x 2 days with n/v;Pt reports of 3 episodes of emesis today. pt also reports of hematuria. Pt denies any fevers, chills, or diarrhea. Pt is aox4 with steady gait. SKin warm/dry/color appriopriate for ethnicity. RR are even and unlabored. No acute distress noted. Awaiting er md angelo. All needs met at this time. Will continue to monitor.
[2017-10-03] MEDS ORDERED: fentaNYL 0.05 MG/ML VIAL IVP ONE (18:00)
[2017-10-03] MEDS ORDERED: ONDANSETRON 4 MG/2 ML VIAL IVP ONE (18:00)
[2017-10-03] MEDS ORDERED: NACL 0.9% 1,000 ML IV ONE (18:00)
[2017-10-03 18:24] LABS: APPEARANCE,URINE SL CLOUDY (CLEAR); BILIRUBIN,URINE NEGATIVE (NEGATIVE); BLOOD, URINE 3+ (NEGATIVE); COLOR,URINE YELLOW (YELLOW); LEUKOCYTE ESTERASE ,URINE TRACE (NEGATIVE); NITRITE, URINE NEGATIVE (NEGATIVE); UGLUCOSE NEGATIVE (NEGATIVE)
[2017-10-03 18:24] LABS: BASOPHILS # (AUTO) 0.2 K/uL (0.00-0.22); BASOPHILS % (AUTO) 2.2 % (0.0-2.0); EOSINOPHILS # (AUTO) 0.1 K/uL (0-0.4); HEMATOCRIT 34.2 % (36-48); HEMOGLOBIN 11.4 g/dL (12.0-16.0); LYMPHOCYTES # (AUTO) 1.2 K/uL (2.5-16.5); LYMPHOCYTES % (AUTO) 16.8 % (20.5-51.1); MEAN CORPUSCULAR HEMOGLOBIN 31 pg (27-31); MEAN CORPUSCULAR HGB CONC 33 g/dL (33-37); MEAN CORPUSCULAR VOLUME 92.9 fL (80-94); MONOCYTES # (AUTO) 0.7 K/uL (0.8-1.0); MONOCYTES % (AUTO) 9.8 % (1.7-9.3); NEUTROPHILS % (AUTO) 70.2 % (42.2-75.2); PLATELET COUNT (AUTO) 165 K/uL (140-450); RED BLOOD CELL COUNT(AUTO) 3.68 MIL/uL (4.20-5.40); RED CELL DISTRIBUTION WIDTH 12.5 % (11.6-13.7); WHITE BLOOD COUNT (AUTO) 7.2 K/uL (4.8-10.8)
[2017-10-03 18:27] LABS: ANION GAP 16.4 (8-16); CARBON DIOXIDE 21.5 mmol/L (21-32); CREATININE 1.2 mg/dL (0.6-1.3); POTASSIUM 3.9 mmol/L (3.5-5.1)
[2017-10-03 18:41] LABS: ALBUMIN 3.5 g/dL (3.4-5.0); TOTAL BILIRUBIN 0.2 mg/dL (0.0-1.0)
--- NOTE | 2017-10-03 19:23 | NUR ---
Pt report given to Sohail MCCLURE. Transfer of care at this time.
--- NOTE | 2017-10-03 19:25 | NUR ---
RECEIVED REPORT FROM EMILY ROLDAN
[2017-10-03] MEDS ORDERED: diphenhydrAMINE 50 MG/ML VIAL IVP ONE (19:40)
[2017-10-03] MEDS ORDERED: HYDROmorphone PFS 2 MG/ML SYR IVP ONE (19:40)
[2017-10-03 19:49] LABS: RBC,URINE >100 /HPF (0-5); WBC,URINE 0-5 (RARE) /HPF (0-5)
[2017-10-03] MEDS ORDERED: MORPHINE SULFATE 2 MG/ML SYR IVP PRN (19:55)
--- NOTE | 2017-10-03 20:39 | NUR ---
Pt report given to AJIT MURILLO. Transfer of care at this time.
[2017-10-03 20:45] VITALS: BP 132/87
--- NOTE | 2017-10-03 20:45 | NUR ---
Admitted from ER TO [facility], with chief complaint of ABDOMINAL PAIN , 52 y/o ,Female, Cooperative, AWAKE, A/OX4. RESPIRATION EVEN AND UNLABORED. LUNGS CLEAR ON BILATERAL AUSCULTATION, ABDOMEN SOFT, WITH POSITIVE BOWEL SOUNDS ON ALL QUADRANTS. AMBULATORY TO BR. IV SALINE LOCK AT THE LEFT WRIST G22, PATENT AND INTACT. HEAD TO TOE ASSESSMENT DONE, SKIN INTACT. PAIN IN THE ABDOMEN 3/10, WAS MEDICATED IN ER WITH DILAUDID AND BENADRYL. PLAN OF CARE FOR THE SHIFT DISCUSSED. VERBALIZED UNDERSTANDING. oriented to call light, bed, phone,television, bathroom, smoking policy,visiting hours, procedures, ID bracelet on. Belongings list checked.
--- NOTE | 2017-10-03 20:45 | NUR ---
Patient's Plan of Care was discussed and reviewed with LIDIA: LIDIA FONG
[2017-10-03 20:58] LABS: BARBITURATE, URINE NEG. ng/ml (NEG <=200); BENZODIAZEPINE, URINE NEG. ng/mL (NEG <=200); CANNABINOID, URINE POS. ng/mL (NEG <=50); COCAINE, URINE NEG. ng/mL (NEG <=300); OPIATE, URINE NEG. ng/mL (NEG <=2000); PHENCYCLIDINE SCREEN,URINE NEG. ng/mL (NEG <=25)
[2017-10-03] MEDS: NACL 0.9% 1,000 ML IV SCH (22:13)
[2017-10-03 22:18] VITALS: BP 125/89
[2017-10-03] MEDS: MORPHINE SULFATE 4 MG/ML SYR IVP PRN (22:18)
--- NOTE | 2017-10-03 23:19 | NUR ---
SPOKE WITH DR. NIELSEN, INFORMED PATIENT IS REQUESTING FOR HER NIGHT MEDS THAT MAKE HER SLEEP, PAXIL, SEROQUEL AND PRAZOSIN AND MEDICATION FOR HER NOSE (MRSA). ORDERED ONE TIME DOSE OF SEROQUEL AND WILL EVALUATE PATIENT IN AM FOR OTHER MEDICATIONS.
[2017-10-03] MEDS ORDERED: QUEtiapine FUMARATE 100 MG TAB PO ONE (23:20)
[2017-10-03] MEDS: ONDANSETRON 4 MG/2 ML VIAL IVP PRN (23:44)
--- NOTE | 2017-10-03 23:44 | NUR ---
VOMITED SMALL AMOUNT OF FLUIDS, MEDICATED WITH ZOFRAN BY KAMI ARGUETA.
--- NOTE | 2017-10-04 00:15 | NUR ---
NO NAUSEA/ VOMITING NOTED.
[2017-10-04 02:03] VITALS: BP 109/73
[2017-10-04] MEDS: MORPHINE SULFATE 4 MG/ML SYR IVP PRN ×6 (02:32→22:12)
[2017-10-04] MEDS: NACL 0.9% 1,000 ML IV SCH ×3 (03:54→15:03)
--- NOTE | 2017-10-04 04:00 | NUR ---
SLEEPING COMFORTABLY IN BED.
--- NOTE | 2017-10-04 07:15 | NUR ---
COMPLAINT OF ABDOMINAL PAIN ATTENDED PROMPTLY, MEDICATED ORDERED. CONDITION REMAIN STABLE. ENDORSED TO AM NURSES FOR CONTINUITY OF CARE.
--- NOTE | 2017-10-04 07:30 | NUR ---
RECEIVED REPORT FROM LIDIA FONG, PT IS RESTING IN BED, AAOX4, AMBULATORY, PT HAS IV ON HER RIGHT HAND, PATENT, INTACT, FLUSHING WELL, PT IS ON ROOM AIR, NO S/S OF RESPIRATORY DISTRESS OR DISCOMFORT NOTED, DISCUSSED PLAN OF CARE WITH PT, PT VERBALIZED UNDERSTANDING, SAFETY/FALL PRECAUTIONS ARE IN PLACE, CALL LIGHT IS WITHIN REACH, WILL CONTINUE TO MONITOR.
[2017-10-04 08:00] VITALS: BP 105/63
[2017-10-04 08:24] LABS: BASOPHILS % (AUTO) 0.6 % (0.0-2.0); EOSINOPHILS # (AUTO) 0.1 K/uL (0-0.4); EOSINOPHILS % (AUTO) 3.2 % (0.0-4.0); HEMATOCRIT 30.2 % (36-48); HEMOGLOBIN 10.2 g/dL (12.0-16.0); LYMPHOCYTES # (AUTO) 1.8 K/uL (2.5-16.5); LYMPHOCYTES % (AUTO) 41.1 % (20.5-51.1); MEAN CORPUSCULAR HEMOGLOBIN 32 pg (27-31); MEAN CORPUSCULAR HGB CONC 34 g/dL (33-37); MONOCYTES # (AUTO) 0.4 K/uL (0.8-1.0); MONOCYTES % (AUTO) 9.8 % (1.7-9.3); NEUTROPHILS % (AUTO) 45.3 % (42.2-75.2); PLATELET COUNT (AUTO) 156 K/uL (140-450); RED BLOOD CELL COUNT(AUTO) 3.21 MIL/uL (4.20-5.40); RED CELL DISTRIBUTION WIDTH 13.1 % (11.6-13.7); WHITE BLOOD COUNT (AUTO) 4.3 K/uL (4.8-10.8)
[2017-10-04 08:39] LABS: ALBUMIN 2.7 g/dL (3.4-5.0); ANION GAP 12.9 (8-16); CARBON DIOXIDE 22.5 mmol/L (21-32); POTASSIUM 3.4 mmol/L (3.5-5.1); TOTAL BILIRUBIN 0.2 mg/dL (0.0-1.0)
--- NOTE | 2017-10-04 09:21 | NUR ---
PATIENT HAS BEEN SCREENED AND CATEGORIZED MODERATE NUTRITION RISK. PATIENT WILL BE SEEN WITHIN 3-5 DAYS OF ADMISSION. 10/06/17 - 10/08/[address]
[2017-10-04] MEDS: ONDANSETRON 4 MG/2 ML VIAL IVP PRN ×2 (09:31→17:47)
[2017-10-04] MEDS: ENOXAPARIN 40 MG/0.4 ML SYR SUBQ SCH (09:39)
--- NOTE | 2017-10-04 09:40 | NUR ---
PT IS LYING ON THE BED, AWAKE, MEDICATIONS GIVEN. CALL LIGHT WITHIN REACH. NO SIGNS OF DISTRESS NOTED . ALL NEEDS ARE MET AT THIS TIME. WILL CONTINUE TO MONITOR.
--- NOTE | 2017-10-04 12:10 | NUR ---
PT IS AWAKE LYING ON THE BED. CALL LIGHT WITHIN REACH. NO UNTOWARD SIGNS AND SYMPTOMS NOTED AT THIS TIME.
--- NOTE | 2017-10-04 13:23 | NUR ---
CM NOTE INITIAL REVIEW FAXED TO [facility] [phone] MICHELE PH# [phone]
--- NOTE | 2017-10-04 14:10 | NUR ---
REPORTED TO DR. HARRISON OF PT'S LOW POTASSIUM RESULT AND HE ORDERED FOR A SINGLE DOSE OF POTASSIUM TO BE GIVEN TO THE PT.
--- NOTE | 2017-10-04 14:15 | NUR ---
PT IS AWAKE, LYING ON THE BED, NO SIGNS OF DISTRESS NOTED AT THIS TIME. CALL LIGHT WITHIN REACH. WILL CONTINUE TO MONITOR.
[2017-10-04] MEDS ORDERED: POTASSIUM CHLORIDE 10 MEQ TABER PO SCH (14:30)
--- NOTE | 2017-10-04 15:00 | NUR ---
PT IS OFF UNIT TO HAVE AN X-RAY DONE.
--- NOTE | 2017-10-04 15:30 | NUR ---
PT IS BACK ON HER ROOM, STABLE AND RESTING ON THE BED. CALL LIGHT WITHIN REACH. NO SIGNS OF DISTRESS NOTED AT THIS TIME. WILL CONTINUE TO MONITOR.
[2017-10-04] MEDS: ACETAMINOPHEN 325 MG TAB PO PRN (15:49)
[2017-10-04 16:00] VITALS: BP 134/83
--- NOTE | 2017-10-04 18:56 | NUR ---
ENDORSED PT TO LAST GREASER NURSE FOR CONTINUITY OF CARE. PT IS STABLE. NO SIGNS OF DISTRESS NOTED.
--- NOTE | 2017-10-04 18:57 | NUR ---
RECD. RESTING IN BED, AWAKE, A/OX4. RESPIRATION EVEN AND UNLABORED. IV OF NS AT 125 ML/HR INFUSING, RIGHT HAND G22. INFORMED HER DIET WAS CHANGED TO FULL LIQUID. PLAN OF CARE FOR THE SHIFT DISCUSSED. VERBALIZED UNDERSTANDING. PAIN IN THE ABDOMEN 07/13. WILL MEDICATE ORDERED. VS STABLE.
--- NOTE | 2017-10-04 19:30 | NUR ---
Patient's Plan of Care was discussed and reviewed with ICT ANALYST: NARENDRA.
--- NOTE | 2017-10-04 21:30 | NUR ---
JELLO AND APPLE JUICES GIVEN, TOLERATED WELL.
[2017-10-04 22:07] VITALS: BP 139/84
--- NOTE | 2017-10-05 | NUR ---
SLEEPING COMFORTABLY IN BED.
[2017-10-05] MEDS: NACL 0.9% 1,000 ML IV SCH ×4 (01:35→19:54)
--- NOTE | 2017-10-05 02:00 | NUR ---
AMBULATED TO TO VOID. BACK TO BED AND SLEEP AGAIN.
[2017-10-05] MEDS: MORPHINE SULFATE 4 MG/ML SYR IVP PRN ×5 (03:48→20:33)
[2017-10-05 06:40] LABS: BASOPHILS # (AUTO) 0.1 K/uL (0.00-0.22); BASOPHILS % (AUTO) 1.4 % (0.0-2.0); EOSINOPHILS # (AUTO) 0.1 K/uL (0-0.4); HEMOGLOBIN 10.1 g/dL (12.0-16.0); LYMPHOCYTES # (AUTO) 1.4 K/uL (2.5-16.5); LYMPHOCYTES % (AUTO) 31.9 % (20.5-51.1); MEAN CORPUSCULAR HEMOGLOBIN 30 pg (27-31); MEAN CORPUSCULAR HGB CONC 33 g/dL (33-37); MEAN CORPUSCULAR VOLUME 93.3 fL (80-94); MONOCYTES # (AUTO) 0.4 K/uL (0.8-1.0); MONOCYTES % (AUTO) 8.1 % (1.7-9.3); NEUTROPHILS # (AUTO) 2.5 K/uL (1.8-7.7); NEUTROPHILS % (AUTO) 55.6 % (42.2-75.2); PLATELET COUNT (AUTO) 197 K/uL (140-450); RED BLOOD CELL COUNT(AUTO) 3.32 MIL/uL (4.20-5.40); RED CELL DISTRIBUTION WIDTH 12.5 % (11.6-13.7); WHITE BLOOD COUNT (AUTO) 4.5 K/uL (4.8-10.8)
--- NOTE | 2017-10-05 07:20 | NUR ---
RESTING IN BED, IV OFF, SEEMS INFILTRATED. CONDITION REMAIN STABLE. ENDORSED TO KAMI FREIRE FOR CONTINUITY OF CARE.
--- NOTE | 2017-10-05 07:28 | NUR ---
RECEIVED PATIENT REPORT AT BEDSIDE, PATIENT SHOWS NO S/S OF ACUTE DISTRESS ON ROOM AIR, AAOX4, IV ACCESS NOTED ON THE LEFT WRIST WITH IVF'S INFUSING WELL, NO C/O PAIN, NOTED SKIN INTACT. DISCUSSED POC WITH PATIENT AND SHE VERBALIZED UNDERSTANDING. SAFETY PRECAUTIONS IN PLACE. BED IN LOW POSITION WITH CALL LIGHT WITHIN REACH.
[2017-10-05 07:39] LABS: ALBUMIN 2.7 g/dL (3.4-5.0); ANION GAP 13.3 (8-16); CARBON DIOXIDE 23.5 mmol/L (21-32); CREATININE 0.9 mg/dL (0.6-1.3); MAGNESIUM 1.5 mg/dL (1.8-2.4); POTASSIUM 3.8 mmol/L (3.5-5.1); TOTAL BILIRUBIN 0.2 mg/dL (0.0-1.0)
[2017-10-05] MEDS: ONDANSETRON 4 MG/2 ML VIAL IVP PRN ×3 (08:30→20:37)
[2017-10-05] MEDS: ENOXAPARIN 40 MG/0.4 ML SYR SUBQ SCH (08:39)
--- NOTE | 2017-10-05 08:40 | NUR ---
ADMINISTERED SCHEDULED MEDICATIONS, PATIENT C/O PAIN AND NAUSEA, ADMINISTERED PRN PAIN AND NAUSEA MED. ALL NEEDS MET AT THIS TIME, PATIENT REFUSED TO EAT BREAKFAST.
[2017-10-05 10:27] VITALS: BP 115/81
[2017-10-05] MEDS ORDERED: MAG SULF 2000 MG/WATER PREMIX 50 ML IV ONE (10:35)
[2017-10-05] MEDS ORDERED: LACTULOSE 20 GM/30 ML UDC PO SCH (11:00)
--- NOTE | 2017-10-05 12:39 | NUR ---
PATIENT C/O ABD PAIN 03/13 AND WAS GIVEN MORPHINE 4 MG IVP WILL REASSESS IN ONE HR.
--- NOTE | 2017-10-05 13:40 | NUR ---
PATIENT IS RESTING COMFORTABLY AND SHOWS NO S/S OF ACUTE DISTRESS ON ROOM AIR, NO C/O PAIN
--- NOTE | 2017-10-05 13:43 | NUR ---
CM NOTE CONCURRENT REVIEW FAXED TO [facility] [phone] MICHELE PH# [phone]
[2017-10-05] MEDS: CHLORHEXADINE GLUC 2% CLOTH TP SCH (15:56)
[2017-10-05] MEDS: MUPIROCIN 2% OINT 22 GM TUBE TP SCH (15:56)
[2017-10-05 16:06] VITALS: BP 125/85
--- NOTE | 2017-10-05 16:38 | NUR ---
PATIENT C/O 6/10 ABD PAIN, ADMINISTERED MORPHINE 2 MG IVP. WILL REASSESS PAIN IN ONE HR.
--- NOTE | 2017-10-05 17:35 | NUR ---
PATIENT WAS ASKED IF HER PAIN MEDICATION HELPED WITH THE PAIN AND SHE STATED, "I STILL FEEL PAIN BUT ITS TOLERABLE RIGHT NOW."
--- NOTE | 2017-10-05 19:15 | NUR ---
PATIENT REPORT GIVEN AT BEDSIDE, PATIENT ENDORSED IN STABLE CONDITION.
--- NOTE | 2017-10-05 19:16 | NUR ---
RECEIVED REPORT FROM DAY NURSE, PT IN STABLE CONDITION. NO S/S OF DISTRESS NOTED. PT IS AAOX4, ON ROOM AIR. IV TO L FA 22G, PATENT AND INTACT, INFUSING WELL. SKIN INTACT, RR EVEN/UNLABORED. INITIAL ASSESSMENT COMPLETED. PLAN OF CARE DISCUSSED WITH PT, VERBALIZED UNDERSTANDING. ALL SAFETY PRECAUTIONS MET, CALL LIGHT WITHIN REACH, WILL CONTINUE TO MONITOR
--- NOTE | 2017-10-05 20:33 | NUR ---
PT DUE MEDICATIONS GIVEN WITH MORPHINE, PT C/O 03/13 PAIN. PT TOLERATED WELL, WILL CONTINUE TO MONITOR
[2017-10-05] MEDS: DOCUSATE SODIUM 100 MG GELCAP PO SCH (20:38)
[2017-10-05] MEDS ORDERED: PARoxetine 20 MG TAB PO SCH (21:00)
[2017-10-05] MEDS ORDERED: MAGNESIUM HYDROXIDE 2400 MG/30 ML UDC PO PRN (21:10)
--- NOTE | 2017-10-05 21:15 | NUR ---
PT DR. NIELSEN BECAUSE PT REQUESTS TO TAKE HER HOME PSYCH MEDICATIONS
--- NOTE | 2017-10-05 21:16 | NUR ---
PT ALSO REQUESTS TO TAKE A LAXATIVE BECAUSE SHE IS CONSTIPATED
--- NOTE | 2017-10-05 21:20 | NUR ---
DR. NIELSEN PAGED BACK SAID ITS OKAY TO CONTINUE HOME MEDS, WILL CARRY OUT ORDERS
[2017-10-05] MEDS ORDERED: QUEtiapine FUMARATE 100 MG TAB PO SCH (21:40)
--- NOTE | 2017-10-05 21:43 | NUR ---
PAXIL AND SEROQUEL GIVEN PER ORDERS AT THIS TIME, ALONG WITH MILK OF MAG, PT TOLERATED WELL
[2017-10-05] MEDS ORDERED: oxyCODONE/APAP 5/325 MG 1 TAB TAB PO PRN (22:25)
--- NOTE | 2017-10-05 22:50 | NUR ---
PT STATES SHE IS IN A LOT OF PAIN AND CANNOT HANDLE IT, PT GIVEN MORPHINE LESS THEN 2 HOURS AGO, WILL PAGE DR. NIELSEN
--- NOTE | 2017-10-05 22:55 | NUR ---
DR. NIELSEN PAGED BACK WITH ORDERS, WILL CARRY OUT
--- NOTE | 2017-10-05 22:57 | NUR ---
PT MEDICATED WITH PERCOCET, WILL CONTINUE TO MONITOR
[2017-10-06] VITALS: BP 120/75
[2017-10-06] MEDS: MORPHINE SULFATE 4 MG/ML SYR IVP PRN ×4 (01:00→16:30)
[2017-10-06] MEDS: NACL 0.9% 1,000 ML IV SCH ×2 (01:10→12:01)
[2017-10-06 06:59] LABS: BASOPHILS % (AUTO) 0.4 % (0.0-2.0); EOSINOPHILS # (AUTO) 0.2 K/uL (0-0.4); EOSINOPHILS % (AUTO) 4.1 % (0.0-4.0); HEMATOCRIT 29.5 % (36-48); HEMOGLOBIN 9.8 g/dL (12.0-16.0); LYMPHOCYTES # (AUTO) 1.6 K/uL (2.5-16.5); LYMPHOCYTES % (AUTO) 39.4 % (20.5-51.1); MEAN CORPUSCULAR HEMOGLOBIN 31 pg (27-31); MEAN CORPUSCULAR HGB CONC 33 g/dL (33-37); MEAN CORPUSCULAR VOLUME 93.9 fL (80-94); MONOCYTES # (AUTO) 0.4 K/uL (0.8-1.0); MONOCYTES % (AUTO) 10.2 % (1.7-9.3); NEUTROPHILS # (AUTO) 1.8 K/uL (1.8-7.7); NEUTROPHILS % (AUTO) 45.9 % (42.2-75.2); PLATELET COUNT (AUTO) 194 K/uL (140-450); RED BLOOD CELL COUNT(AUTO) 3.15 MIL/uL (4.20-5.40); RED CELL DISTRIBUTION WIDTH 13.1 % (11.6-13.7)
[2017-10-06 07:18] LABS: ALBUMIN 2.7 g/dL (3.4-5.0); ANION GAP 11.7 (8-16); CARBON DIOXIDE 25.9 mmol/L (21-32); CREATININE 0.9 mg/dL (0.6-1.3); MAGNESIUM 1.8 mg/dL (1.8-2.4); POTASSIUM 3.6 mmol/L (3.5-5.1); TOTAL BILIRUBIN 0.2 mg/dL (0.0-1.0)
--- NOTE | 2017-10-06 07:23 | NUR ---
REPORT GIVEN TO DAY NURSE FOR CONTINUITY OF CARE, PT IN STABLE CONDITION.
--- NOTE | 2017-10-06 07:25 | NUR ---
RECEIVED PATIENT REPORT AT BEDSIDE FROM NIGHT NURSE, PATIENT IS AAOX4 AND SHOWS NO S/S OF ACUTE DISTRESS ON ROOM AIR, SKIN IS INTACT, IV NOTED ON THER RIGHT FOREARM WITH IVF'S INFUSING WELL, PATENT AND INTACT. PATIENT STATES MILD ABD PAIN AND REQUESTED TO HAVE TYLENOL,WILL ADMINISTER, DISCUSSED POC WITH PATIENT AND SHE VERBALIZED UNDERSTANDING OF CARE. BED IN LOW POSITION WITH CALL LIGHT WITHIN REACH.
[2017-10-06 08:02] VITALS: BP 101/60
[2017-10-06] MEDS: DOCUSATE SODIUM 100 MG GELCAP PO SCH (08:28)
[2017-10-06] MEDS: ENOXAPARIN 40 MG/0.4 ML SYR SUBQ SCH (08:29)
[2017-10-06] MEDS: ACETAMINOPHEN 325 MG TAB PO PRN (08:29)
--- NOTE | 2017-10-06 08:33 | NUR ---
ADMINISTERED SCHEDULED MEDICATIONS, PATIENT ALSO C/O MILD PAIN AND WAS GIVEN TYLENOL 650 MG PO AT HER REQUEST. PATIENT ALSO REQUESTED TO HAVE A WARM COMPRESS, ALL NEEDS MET AT THIS TIME, BED IN LOW POSITION WITH CALL LIGHT WITHIN REACH.
[2017-10-06] MEDS ORDERED: MAGNESIUM CHLORIDE 64 MG TABEC PO SCH (09:00)
--- NOTE | 2017-10-06 10:45 | NUR ---
PATIENT C/O PAIN, ADMINISTERED PRN PAIN MEDICATIONS, BED IN LOW POSITION WITH CALL LIGHT WITHIN REACH.
--- NOTE | 2017-10-06 11:44 | NUR ---
PATIENT STATES, "MY PAIN FEEL A LOT BETTER." PATIENT HAS NO C/O PAIN AT THIS TIME.
--- NOTE | 2017-10-06 12:15 | NUR ---
MELONIE KING NOTIFIED OF PATIENT WANTING TO HAVE [facility] PROVIDE TRANSPORTATION FOR WHEN SHE IS DISCHARGED.
--- NOTE | 2017-10-06 13:41 | NUR ---
CM NOTE CONCURRENT REVIEW FAXED TO [facility] [phone] MICHELE PH# [phone]
[2017-10-06] MEDS: CHLORHEXADINE GLUC 2% CLOTH TP SCH (15:00)
--- NOTE | 2017-10-06 15:00 | NUR ---
PATIENT LEFT TO RADIOLOGY DEPARTMENT FOR PROCEDURE IN STABLE CONDITION.
[2017-10-06 16:00] VITALS: BP 135/70
[2017-10-06] MEDS: MUPIROCIN 2% OINT 22 GM TUBE TP SCH (16:29)
[2017-10-06] MEDS: ONDANSETRON 4 MG/2 ML VIAL IVP PRN (16:30)
[2017-10-06] MEDS ORDERED: DOCU-299 PO (16:46)
[2017-10-06] MEDS ORDERED: POLY17PD46 PO (16:46)
--- NOTE | 2017-10-06 17:35 | NUR ---
PATIENT HAS BEEN DISCHARGED, ALL PAPERWORK SIGNED, ALL BELONGINGS WITH PATIENT, IV DISCONTINUED WITH CANNULA INTACT, WRISTBANDS REMOVED, PATIENT VERBALIZED UNDERSTANDING OF CONTINUITY OF CARE. PATIENT LEFT UNIT IN STABLE CONDITION WITH TRANSPORT PRESENT AT SIDE.
[2017-10-06] MEDS ORDERED: POLYETHYLENE GLYCOL 17 GM/PKT PO SCH (21:00)
[2017-10-06] MEDS ORDERED: QUEtiapine FUMARATE 100 MG TAB PO SCH (21:00)
== END 2017-10-06 17:35 | disposition home or self-care (01) | DRG 252 ==
LOC: MED 16:57 → MTU 19:58
PROVIDERS: ADMIT Internal Medicine; ATTEND Internal Medicine
DX: K95.09 Other complications of gastric band procedure (principal); K85.90 Acute pancreatitis without necrosis or infection, unspecified; E83.42 Hypomagnesemia; F41.9 Anxiety disorder, unspecified; F43.10 Post-traumatic stress disorder, unspecified; N28.89 Other specified disorders of kidney and ureter; K91.30 Postprocedural intestinal obstruction, unspecified as to partial versus complete; Y83.8 Other surgical procedures as the cause of abnormal reaction of the patient, or of later complication, without mention of misadventure at the time of the procedure; G47.00 Insomnia, unspecified; G89.29 Other chronic pain; M54.5 Low back pain; F31.9 Bipolar disorder, unspecified; K59.00 Constipation, unspecified; Z88.2 Allergy status to sulfonamides; Z98.84 Bariatric surgery status; Z87.442 Personal history of urinary calculi; Z87.440 Personal history of urinary (tract) infections; Z88.6 Allergy status to analgesic agent; Z79.899 Other long term (current) drug therapy; Y92.89 Other specified places as the place of occurrence of the external cause
CPT/HCPCS: 36415; 74021; 74250; 80053; 80305; 81001; 83690; 83735; 84478; 85025; 87081; 96361; 96374; 96375; 99285; J1170; J1200; J1650; J2270; J2405; J3010; J3475; J7030

== ENCOUNTER 2017-10-16 19:57 | Emergency (ER) | payer OTHER ==
[~2017-10-16] VITALS: Ht 162.6 cm; Wt 76.9 kg
[~2017-10-16 19:57] MED LIST changes: +POLY17PD46 PO; -PRAZ5CAP PO
[2017-10-16 20:02] VITALS: BP 140/87
[2017-10-16] MEDS ORDERED: MORPHINE SULFATE 4 MG/ML SYR IM ONE (20:35)
[2017-10-16] MEDS ORDERED: ONDANSETRON 4 MG/2 ML VIAL IVP ONE (20:55)
[2017-10-16] MEDS ORDERED: ONDANSETRON 4 MG ODT PO ONE (21:00)
[2017-10-16 21:26] VITALS: BP 129/67
[2017-10-17] MEDS ORDERED: ACET-9494 PO (09:52)
[2017-10-17] MEDS ORDERED: TRAM50TA3 PO (09:52)
== END 2017-10-16 21:26 | disposition home or self-care (01) ==
LOC: MED 19:57
DX: R10.9 Unspecified abdominal pain (principal); R11.0 Nausea; F17.200 Nicotine dependence, unspecified, uncomplicated; Z98.84 Bariatric surgery status; Z88.2 Allergy status to sulfonamides; Z88.6 Allergy status to analgesic agent
CPT/HCPCS: 81002; 81025; 96372; 99283; J2270; S0119

== ENCOUNTER 2017-10-17 01:45 | Observation (INO) | payer OTHER ==
[~2017-10-17] VITALS: Ht 162.6 cm; Wt 74.4 kg
--- NOTE | 2017-10-17 01:45 | NUR ---
BIBA TO ER BED 2
[2017-10-17 01:56] VITALS: BP 147/69
[2017-10-17 02:11] LABS: BASOPHILS # (AUTO) 0.4 K/uL (0.00-0.22); EOSINOPHILS # (AUTO) 0.1 K/uL (0-0.4); HEMATOCRIT 34.5 % (36-48); HEMOGLOBIN 11.1 g/dL (12.0-16.0); LYMPHOCYTES # (AUTO) 2.3 K/uL (2.5-16.5); MEAN CORPUSCULAR HEMOGLOBIN 30 pg (27-31); MEAN CORPUSCULAR HGB CONC 32 g/dL (33-37); MEAN CORPUSCULAR VOLUME 93.4 fL (80-94); MONOCYTES # (AUTO) 0.8 K/uL (0.8-1.0); NEUTROPHILS # (AUTO) 3.2 K/uL (1.8-7.7); PLATELET COUNT (AUTO) 158 K/uL (140-450); RED BLOOD CELL COUNT(AUTO) 3.69 MIL/uL (4.20-5.40); RED CELL DISTRIBUTION WIDTH 12.5 % (11.6-13.7); WHITE BLOOD COUNT (AUTO) 6.8 K/uL (4.8-10.8)
[2017-10-17 02:18] LABS: BASOPHILS % (AUTO) 5.7 % (0.0-2.0)
[2017-10-17 02:19] LABS: ANION GAP 14.7 (8-16); CARBON DIOXIDE 22.8 mmol/L (21-32); CREATININE 1.4 mg/dL (0.6-1.3); POTASSIUM 3.5 mmol/L (3.5-5.1)
[2017-10-17 02:25] LABS: ALBUMIN 3.7 g/dL (3.4-5.0); TOTAL BILIRUBIN 0.3 mg/dL (0.0-1.0)
[2017-10-17] MEDS ORDERED: NACL 0.9% 1,000 ML IV ONE (02:40)
[2017-10-17] MEDS ORDERED: MORPHINE SULFATE 4 MG/ML SYR IVP ONE (02:40)
[2017-10-17] MEDS ORDERED: NACL 0.9% 1,000 ML IV SCH (02:52)
[2017-10-17] MEDS ORDERED: ACETAMINOPHEN 325 MG TAB PO PRN (02:55)
[2017-10-17] MEDS ORDERED: LORazepam 2 MG/ML VIAL IVP PRN (02:55)
[2017-10-17] MEDS ORDERED: ONDANSETRON 4 MG/2 ML VIAL IVP PRN (02:55)
[2017-10-17] MEDS ORDERED: HYDROcodone/APAP 5/325 MG 1 TAB TAB PO PRN ×3 (02:55→09:50)
[2017-10-17] MEDS ORDERED: DOCUSATE SODIUM 100 MG GELCAP PO PRN (02:55)
[2017-10-17 03:45] VITALS: BP 81/42
--- NOTE | 2017-10-17 03:45 | NUR ---
PATIENT ADMITTED FOR OBSERVATION. PATIENT IS AOX4. AMBULATORY. NO SIGNS AND SYMPTOMS OF DISTRESS NOTED. PATIENT IS ON ROOM AIR. IV SITE NOTED ON RIGHT HAND. IVF INFUSING WELL. BED IN LOWEST POSITION, SIDE RAILS UP AND CALL LIGHT WITHIN REACH. WILL CONTINUE TO MONITOR.
--- NOTE | 2017-10-17 04:05 | NUR ---
Patient will be admitted to care of DR RESTREPO. Admited to MS. Will go to room 115. Belongings list completed. Report to KAMI SCHAEFER.
--- NOTE | 2017-10-17 04:58 | NUR ---
IV FLUID NS 1000ML BAG FROM ER FINISHED.
--- NOTE | 2017-10-17 05:00 | NUR ---
IV FLUID NS 1000ML STARTED
[2017-10-17 06:19] VITALS: BP 105/59
--- NOTE | 2017-10-17 07:10 | NUR ---
PATIENT REPORT GIVEN TO MORNING NURSE FOR CONTINUITY OF CARE. PATIENT IS IN STABLE CONDITION.
--- NOTE | 2017-10-17 07:11 | NUR ---
RECEIVED REPORT FROM RN MENTAL HEALTH RN. PATIENT IS AAOX4, NO SIGNS AND SYMPTOMS OF ACUTE DISTRESS NOTED AT THIS TIME. PATIENT HAS IV TO THE RIGHT HAND 20G, INFUSING NS AT 100ML/HR. SITE IS CLEAN, DRY, PATENT AND INTACT. PATIENT IS AWARE THAT WE ARE COLLECTING 24 HR URINE SAMPLE. DISCUSSED PLAN OF CARE WITH PATIENT AND SHE VERBALIZED UNDERSTANDING. BED IN LOWEST POSITION, SIDE RAILS UP X2, CALL LIGHT WITHIN REACH. WILL CONTINUE TO MONITOR.
[2017-10-17 08:00] VITALS: BP 141/66
[2017-10-17] MEDS ORDERED: TAMSULOSIN 0.4 MG CAP PO SCH (08:30)
[2017-10-17] MEDS ORDERED: traMADol 50 MG TAB PO PRN (09:30)
[2017-10-17] MEDS ORDERED: oxyCODONE/APAP 5/325 MG 1 TAB TAB PO PRN ×2 (09:30)
--- NOTE | 2017-10-17 09:48 | NUR ---
PATIENT HAS BEEN SCREENED AND CATEGORIZED LOW NUTRITION RISK. PATIENT WILL BE SEEN WITHIN 7 DAYS OF ADMISSION. 10/24/[address]
[2017-10-17] MEDS ORDERED: ONDANSETRON 4 MG TAB PO PRN (09:50)
[2017-10-17] MEDS ORDERED: ACET-9494 PO (09:52)
[2017-10-17] MEDS ORDERED: TRAM50TA3 PO (09:52)
--- NOTE | 2017-10-17 12:30 | NUR ---
IV FLUIDS OF NS STOPPED AT THIS TIME.
--- NOTE | 2017-10-17 12:35 | NUR ---
DISCHARGE ORDER IS IN PLACE. PATIENT BEING PICKED UP BY [facility]. GAVE PATIENT DISCHARGE INSTRUCTIONS, INCLUDING MAKING HER AWARE OF PRESCRIPTION IN PACKET. INSTRUCTED HER ON S/SX OF DISTRESS TO SEEK EMERGENCY MEDICAL ATTENTION. PATIENT VERBALIZED UNDERSTANDING. PATIENTS HOME MEDS RETURNED TO HER. REMOVED IV AT THIS TIME, SITE IS CLEAN AND DRY. ALL BELONGINGS ARE WITH PATIENT. PATIENT IS IN STABLE CONDITION. WILL WALK OUT WITH HER.
[2017-10-17] MEDS ORDERED: PARoxetine 20 MG TAB PO SCH (21:00)
[2017-10-18] MEDS ORDERED: POLYETHYLENE GLYCOL 17 GM/PKT PO SCH (09:00)
[2017-10-18] MEDS ORDERED: QUEtiapine FUMARATE 100 MG TAB PO SCH (09:00)
== END 2017-10-17 12:35 | disposition home or self-care (01) ==
LOC: MED 01:45 → MTU 02:59
PROVIDERS: ADMIT Hospitalist; ATTEND Hospitalist
DX: R10.9 Unspecified abdominal pain (principal); G89.4 Chronic pain syndrome; F11.20 Opioid dependence, uncomplicated; N28.89 Other specified disorders of kidney and ureter; K85.90 Acute pancreatitis without necrosis or infection, unspecified; N39.0 Urinary tract infection, site not specified; F41.9 Anxiety disorder, unspecified; F12.10 Cannabis abuse, uncomplicated; Z87.442 Personal history of urinary calculi
CPT/HCPCS: 36415; 74176; 80053; 83690; 85025; 87081; 96361; 96374; 96375; 99285; G0378; J2060; J2270; J2405; J7030

== ENCOUNTER 2017-11-19 12:07 | Emergency (ER) | payer OTHER ==
[~2017-11-19] VITALS: Ht 162.6 cm; Wt 70.5 kg
[~2017-11-19 12:07] MED LIST changes: -ACET-2869 PO; +ACET-9494 PO; -ONDA4TAB PO; -PAX20 PO; +TRAM50TA3 PO
[2017-11-19 12:16] VITALS: BP 140/83
--- NOTE | 2017-11-19 12:24 | NUR ---
PT AMBULATED TO BED 2.
--- NOTE | 2017-11-19 12:30 | NUR ---
INCISIONAL PAIN S/P SURGERY Panniculectomy 11/14/17 AT [facility]; RAN OUT OF PAIN MEDICATIONS. DENIES N/V/D; SKIN IS PINK/WARM/DRY; AAOX4 LUNGS CLEAR BL; HR EVEN AND REGULAR; PT DENIES ANY FEVER, CP, SOB, OR COUGH AT THIS TIME; PATIENT STATES PAIN OF 10/10 AT THIS TIME;PT HAS TWO PALMA DRAIN WITH SMALL AMOUNT OF SEROSANGUINOUS DRAINAGE NOTED. BL VSS; PATIENT POSITIONED FOR COMFORT; HOB ELEVATED; BEDRAILS UP X2; BED DOWN. ER MD MADE AWARE OF PT STATUS.
--- NOTE | 2017-11-19 12:57 | NUR ---
Dr. Llanos evaluating patient at bedside.
[2017-11-19] MEDS ORDERED: oxyCODONE/APAP 5/325 MG 1 TAB TAB PO ONE (13:15)
[2017-11-19] MEDS ORDERED: GABAPENTIN 300 MG CAP PO ONE (13:15)
[2017-11-19] MEDS ORDERED: ESCITALOPRAM 20 MG TAB PO SCH (13:15)
[2017-11-19 13:59] LABS: APPEARANCE,URINE CLEAR (CLEAR); BILIRUBIN,URINE NEGATIVE (NEGATIVE); BLOOD, URINE NEGATIVE (NEGATIVE); COLOR,URINE YELLOW (YELLOW); LEUKOCYTE ESTERASE ,URINE NEGATIVE (NEGATIVE); NITRITE, URINE NEGATIVE (NEGATIVE); PH,URINE 6.5 (5.0-9.0); UGLUCOSE NEGATIVE (NEGATIVE)
[2017-11-19 14:07] LABS: BARBITURATE, URINE NEG. ng/ml (NEG <=200); BENZODIAZEPINE, URINE NEG. ng/mL (NEG <=200); CANNABINOID, URINE POS. ng/mL (NEG <=50); COCAINE, URINE NEG. ng/mL (NEG <=300); OPIATE, URINE NEG. ng/mL (NEG <=2000); PHENCYCLIDINE SCREEN,URINE NEG. ng/mL (NEG <=25)
[2017-11-19 14:34] VITALS: BP 130/78
--- NOTE | 2017-11-19 14:35 | NUR ---
Patient discharged with v/s stable. Written and verbal after care instructions given and explained. Patient alert, oriented and verbalized understanding of instructions. Ambulatory with steady gait. All questions addressed prior to discharge. ID band removed. Patient advised to follow up with PMD. Rx of NEUROTIN, PERCOCET AND LEXAPRO given. Patient educated on indication of medication including possible reaction and side effects. Opportunity to ask questions provided and answered.
== END 2017-11-19 14:35 | disposition home or self-care (01) ==
LOC: MED 12:07
DX: G89.29 Other chronic pain (principal); M54.5 Low back pain; Z76.0 Encounter for issue of repeat prescription; Z79.899 Other long term (current) drug therapy; Z88.2 Allergy status to sulfonamides; Z88.5 Allergy status to narcotic agent; Z88.8 Allergy status to other drugs, medicaments and biological substances
CPT/HCPCS: 80305; 81003; 99284

== ENCOUNTER 2017-12-06 12:36 | Emergency (ER) | payer OTHER ==
[~2017-12-06] VITALS: Ht 162.6 cm; Wt 70.3 kg
[2017-12-06 12:44] VITALS: BP 130/93
--- NOTE | 2017-12-06 12:49 | NUR ---
PT AMBULATED TO BED 3
[2017-12-06] MEDS ORDERED: ONDANSETRON 4 MG TAB ONE (13:13)
[2017-12-06] MEDS ORDERED: ONDANSETRON 4 MG ODT PO ONE (13:20)
--- NOTE | 2017-12-06 13:21 | NUR ---
52YO F TO ER FOR LOWER BACK PAIN SINCE THIS AM. REPORTS HX OF SCIATICA SINCE SEPTEMBER. TYLENOL NOT WORKING. FACIAL GRIMACING NOTED. DENIES ANY NUMBNESS/TINGLING OR ANY RADIATING PAIN. DENIES DYSURIA. 04/12 PAIN. PT SEEN MULTIPLE TIMES FOR SIMILAR REASONS, LS CLEAR, BS ACTIVE X4 MED HX: SCIATICA, MEDULLARY SPONGE KIDNEYS, PTSD, BIPOLAR, ANXIETY MED: SEROQUAL, LEXAPRO, TYLENOL, OMEPRAZOLE
[2017-12-06] MEDS ORDERED: HYDROcodone/APAP 5/325 MG 1 TAB TAB PO ONE ×2 (13:30→14:10)
--- NOTE | 2017-12-06 13:50 | NUR ---
PT STILL C/O PAIN. ER MADE AWARE. DR LAMBERT AT BEDSIDE .
[2017-12-06 14:31] VITALS: BP 126/90
--- NOTE | 2017-12-06 14:31 | NUR ---
Patient discharged with v/s stable. Written and verbal after care instructions given and explained. Patient alert, oriented and verbalized understanding of instructions. Ambulatory with steady gait. All questions addressed prior to discharge. ID band removed. Patient advised to follow up with PMD. Rx of ZOFRAN 4MG given. Patient educated on indication of medication including possible reaction and side effects. Opportunity to ask questions provided and answered.
== END 2017-12-06 14:31 | disposition home or self-care (01) ==
LOC: MED 12:36
DX: M54.42 Lumbago with sciatica, left side (principal); G89.29 Other chronic pain; Z79.899 Other long term (current) drug therapy; Z88.2 Allergy status to sulfonamides; Z88.5 Allergy status to narcotic agent; Z88.8 Allergy status to other drugs, medicaments and biological substances
CPT/HCPCS: 99284; Q0162; S0119

== ENCOUNTER 2017-12-06 20:43 | Emergency (ER) | payer OTHER ==
[~2017-12-06] VITALS: Ht 162.6 cm; Wt 70.3 kg
[2017-12-06 20:47] VITALS: BP 138/82
--- NOTE | 2017-12-06 20:50 | NUR ---
TO BED # 12 AMBULATORY, REPORT GIVEN TO MILLIE MCCLURE.
--- NOTE | 2017-12-06 20:55 | NUR ---
PATIENT PRESENTS TO ED WITH LOWER BACK PAIN X2 MONTHS. PT DENIES N/V/D; SKIN IS PINK/WARM/DRY; AAOX4 WITH EVEN AND STEADY GAIT; LUNGS CLEAR BL; HR EVEN AND REGULAR; PT DENIES ANY FEVER, CP, SOB, OR COUGH AT THIS TIME; PATIENT STATES PAIN OF 10/10 AT THIS TIME; VSS; PATIENT POSITIONED FOR COMFORT; HOB ELEVATED; BEDRAILS UP X1; BED DOWN. ER MD MADE AWARE OF PT STATUS.
[2017-12-06] MEDS ORDERED: MORPHINE SULFATE 4 MG/ML SYR IM ONE (21:10)
[2017-12-06] MEDS ORDERED: LORazepam 2 MG/ML VIAL IM ONE (21:10)
[2017-12-06] MEDS ORDERED: fentaNYL 0.05 MG/ML VIAL IM ONE (21:10)
[2017-12-06] MEDS ORDERED: MORPHINE SULFATE 4 MG/ML SYR ONE (21:13)
--- NOTE | 2017-12-06 21:33 | NUR ---
Patient discharged with v/s stable. Written and verbal after care instructions given and explained. Patient verbalized understanding. Ambulatory with SON to car. All questions addressed prior to discharge. Advised to follow up with PMD.
[2017-12-06 21:36] VITALS: BP 138/82
== END 2017-12-06 21:33 | disposition home or self-care (01) ==
LOC: MED 20:43
DX: M54.42 Lumbago with sciatica, left side (principal); Z79.899 Other long term (current) drug therapy; Z88.2 Allergy status to sulfonamides; Z88.5 Allergy status to narcotic agent; Z88.8 Allergy status to other drugs, medicaments and biological substances
CPT/HCPCS: 96372; 99284; J2060; J2270

== ENCOUNTER 2017-12-26 19:00 | Emergency (ER) | payer OTHER ==
[~2017-12-26] VITALS: Ht 162.6 cm; Wt 70.0 kg
[2017-12-26 19:08] VITALS: BP 139/90
--- NOTE | 2017-12-26 20:25 | NUR ---
PT TAKEN TO BED 5
--- NOTE | 2017-12-26 20:30 | NUR ---
PATIENT IS A 52 Y/O FEMALE WHO PRESENTS TO THE ED C/O LOW BACK PAIN. PT STATES THAT SHE RAN OUT OF RX. PT REPORTS 10/10 ACHING LOW BACK PAIN THAT DOES NOT RADIATE. PT DENIES CP, SOB, N/V/D. PT AAOX4, RR EVEN/UNLABORED. PT REPOSITIONED FOR COMFORT, BED IN LOWEST POSITION. ER MD DR. RONQUILLO NOTIFIED. WILL CONTINUE TO MONITOR.
--- NOTE | 2017-12-26 20:48 | NUR ---
Dr. Encinas evaluating patient at bedside.
[2017-12-26] MEDS ORDERED: CYCLOBENZAPRINE 10 MG TAB PO ONE (20:55)
[2017-12-26] MEDS ORDERED: MORPHINE SULFATE 4 MG/ML SYR IM ONE (20:55)
[2017-12-26] MEDS ORDERED: ONDANSETRON 4 MG ODT PO ONE (21:00)
[2017-12-26 21:07] LABS: APPEARANCE,URINE SL CLOUDY (CLEAR); BILIRUBIN,URINE NEGATIVE (NEGATIVE); BLOOD, URINE 3+ (NEGATIVE); COLOR,URINE YELLOW (YELLOW); LEUKOCYTE ESTERASE ,URINE NEGATIVE (NEGATIVE); NITRITE, URINE NEGATIVE (NEGATIVE); PH,URINE 5.5 (5.0-9.0); UGLUCOSE NEGATIVE (NEGATIVE)
--- NOTE | 2017-12-26 21:20 | NUR ---
PATIENT SON WILL PICKUP.
[2017-12-26 21:23] LABS: RBC,URINE TOO NUMEROUS TO COUN /HPF (0-5); WBC,URINE 0-5 (RARE) /HPF (0-5)
[2017-12-26 21:25] VITALS: BP 127/85
--- NOTE | 2017-12-26 21:25 | NUR ---
Patient discharged with v/s stable. Written and verbal after care instructions given and explained. Patient verbalized understanding. Ambulatory with steady gait. All questions addressed prior to discharge. Advised to follow up with PMD.
== END 2017-12-26 21:25 | disposition home or self-care (01) ==
LOC: MED 19:00
DX: G89.29 Other chronic pain (principal); M54.5 Low back pain; Z79.899 Other long term (current) drug therapy; Z88.8 Allergy status to other drugs, medicaments and biological substances; Z88.2 Allergy status to sulfonamides
CPT/HCPCS: 81001; 81025; 87086; 96372; 99284; J2270; S0119

== ENCOUNTER 2018-04-22 13:59 | Emergency (ER) | payer OTHER ==
[~2018-04-22] VITALS: Ht 162.6 cm; Wt 68.0 kg
[2018-04-22 14:10] VITALS: BP 113/69
--- NOTE | 2018-04-22 14:25 | NUR ---
53 YO F BIB SELF W/ C/O LOWER BACK PAIN X TODAY. DENIES INJURY OR TRAUMA. PT REPORTS NAUSEA, DENIES VOMITING. HX MEDULLIARY SPONGE KIDNEYS, PTSD, BIPOLAR, ANXIETY , DEPRESSION, KIDNEY STONES.SKIN IS PINK/WARM/DRY; AAOX4 WITH EVEN AND STEADY GAIT; LUNGS CLEAR BL; PT DENIES ANY FEVER, CP, SOB, OR COUGH AT THIS TIME; PATIENT POSITIONED FOR COMFORT; HOB ELEVATED; BEDRAILS UP X2; BED DOWN. ER MD MADE AWARE OF PT STATUS.
[2018-04-22] MEDS ORDERED: fentaNYL 0.05 MG/ML VIAL IM ONE ×2 (15:35→17:05)
[2018-04-22] MEDS ORDERED: ONDANSETRON 4 MG ODT PO ONE (17:55)
--- NOTE | 2018-04-22 18:33 | NUR ---
PT C/O LOWER BACK PAIN. PT STATED" FENTANYL DOES NOT HELP ME, I WANT OTHER PAINMED". NOTIFIED DR VILLANUEVA. MADE AWARE.
[2018-04-22] MEDS ORDERED: NACL 0.9% 1,000 ML IV ONE (19:00)
--- NOTE | 2018-04-22 19:10 | NUR ---
Pt report given to TYE MCCLURE. Transfer of care at this time.
--- NOTE | 2018-04-22 19:15 | NUR ---
PT LYING IN BED, PAIN LEVEL 7/10. REQUESTING PAIN MEDICINE. MD NOTIFIED. VITALS STABLE.
[2018-04-22] MEDS ORDERED: MORPHINE SULFATE 4 MG/ML SYR IVP ONE (19:25)
[2018-04-22 20:12] VITALS: BP 122/73
== END 2018-04-22 20:16 | disposition home or self-care (01) ==
LOC: MED 13:59
DX: G89.29 Other chronic pain (principal); M54.5 Low back pain; Z88.2 Allergy status to sulfonamides; Z88.6 Allergy status to analgesic agent; Z79.899 Other long term (current) drug therapy
CPT/HCPCS: 74176; 81002; 81025; 96372; 96374; 99284; J2270; J3010; Q0162

== ENCOUNTER 2018-04-27 07:21 | Emergency (ER) | payer OTHER ==
[~2018-04-27] VITALS: Ht 162.6 cm; Wt 69.4 kg
[2018-04-27 07:30] VITALS: BP 131/82
[2018-04-27] MEDS ORDERED: MORPHINE SULFATE 4 MG/ML SYR IM ONE ×2 (08:10→09:45)
[2018-04-27] MEDS ORDERED: ONDANSETRON 4 MG ODT PO ONE (08:10)
[2018-04-27] MEDS ORDERED: PHENAZOPYRIDINE 100 MG TAB PO ONE (09:00)
[2018-04-27 09:30] LABS: APPEARANCE,URINE HAZY (CLEAR); COLOR,URINE YELLOW (YELLOW)
[2018-04-27 09:33] LABS: BLOOD, URINE 4+ (NEGATIVE); UGLUCOSE NEGATIVE (NEGATIVE)
[2018-04-27 09:34] LABS: BILIRUBIN,URINE NEGATIVE (NEGATIVE); LEUKOCYTE ESTERASE ,URINE TRACE (NEGATIVE); NITRITE, URINE NEGATIVE (NEGATIVE)
[2018-04-27 09:52] LABS: RBC,URINE 80-100 /HPF (0-5)
[2018-04-27 10:25] VITALS: BP 109/61
== END 2018-04-27 10:25 | disposition home or self-care (01) ==
LOC: MED 07:21
DX: G89.29 Other chronic pain (principal); M54.9 Dorsalgia, unspecified; N39.0 Urinary tract infection, site not specified; N94.89 Other specified conditions associated with female genital organs and menstrual cycle; Z88.2 Allergy status to sulfonamides; Z88.6 Allergy status to analgesic agent; Z79.899 Other long term (current) drug therapy
CPT/HCPCS: 81001; 81025; 87086; 96372; 99284; J2270; Q0162; 81002

== ENCOUNTER 2018-05-11 07:05 | Emergency (ER) | payer OTHER ==
[~2018-05-11] VITALS: Ht 165.1 cm; Wt 77.1 kg
[2018-05-11 07:24] VITALS: BP 136/88
--- NOTE | 2018-05-11 07:32 | NUR ---
PATIENT PRESENTS TO ED WITH THE CHIEF C/O LOWER BACK PAIN. PT STATES PAIN STARTED THIS MORNING AT 4 AM. STATES HAD N/V. DENIES DIARRHEA; SKIN IS PINK/WARM/DRY; AAOX4 WITH EVEN AND STEADY GAIT; LUNGS CLEAR BL; HR EVEN AND REGULAR; PT DENIES ANY FEVER, CP, SOB, OR COUGH AT THIS TIME; PATIENT STATES PAIN OF 10/10 AT THIS TIME; VSS; PATIENT POSITIONED FOR COMFORT; HOB ELEVATED; BEDRAILS UP X2; BED DOWN. ER MD MADE AWARE OF PT STATUS.
--- NOTE | 2018-05-11 07:42 | NUR ---
DR. POOL AT BEDSIDE EVALUATING THE PATIENT AT THIS TIME.
[2018-05-11] MEDS ORDERED: NITROFURANTOIN 100 MG CAP PO STA (07:48)
[2018-05-11] MEDS ORDERED: HYDROcodone/APAP 5/325 MG 1 TAB TAB PO ONE (07:50)
--- NOTE | 2018-05-11 07:59 | NUR ---
ADMINISTERED MEDICINE ORDERED. TOLEARTING WELL.
--- NOTE | 2018-05-11 08:04 | NUR ---
PT SEEMS NAUSATED/ THROWING UP. ASSISTED NEEDED. DR. THOMPSON MADE AWARE.
[2018-05-11] MEDS ORDERED: PROMETHAZINE 25 MG/ML VIAL IM ONE (08:05)
[2018-05-11 08:14] LABS: APPEARANCE,URINE SLIGHTLY CLOUDY (CLEAR); COLOR,URINE YELLOW (YELLOW)
[2018-05-11 08:15] LABS: BILIRUBIN,URINE NEGATIVE (NEGATIVE); BLOOD, URINE 3+ (NEGATIVE); LEUKOCYTE ESTERASE ,URINE NEGATIVE (NEGATIVE); NITRITE, URINE NEGATIVE (NEGATIVE); UGLUCOSE NEGATIVE (NEGATIVE)
--- NOTE | 2018-05-11 08:33 | NUR ---
PT APPEARS TO BE RELAXED, LYING IN BED COMFORTABLY AT THIS TIME.
--- NOTE | 2018-05-11 08:37 | NUR ---
DOCTOR MADE AWARE ABOUT PT'S C/O PAIN.
[2018-05-11 08:46] LABS: RBC,URINE >100 /HPF (0-5); WBC,URINE 6-15 (FEW) /HPF (0-5)
--- NOTE | 2018-05-11 09:13 | NUR ---
Patient discharged with v/s stable. Written and verbal after care instructions given and explained. Patient alert, oriented and verbalized understanding of instructions. Ambulatory with steady gait. All questions addressed prior to discharge. ID band removed. Patient advised to follow up with PMD. Rx of MACROBID AND NORCO given. Patient educated on indication of medication including possible reaction and side effects. Opportunity to ask questions provided and answered.
[2018-05-11 09:16] VITALS: BP 130/83
--- NOTE | 2018-05-11 10:05 | NUR ---
BACK FROM CT. Addendum: 05/11/18 at 1005 by DELMI WRONG CHARTING.
== END 2018-05-11 09:13 | disposition home or self-care (01) ==
LOC: MED 07:05
DX: G89.29 Other chronic pain (principal); M54.5 Low back pain; N39.0 Urinary tract infection, site not specified; F31.9 Bipolar disorder, unspecified; Z88.2 Allergy status to sulfonamides; Z88.8 Allergy status to other drugs, medicaments and biological substances; Z79.899 Other long term (current) drug therapy; Z79.1 Long term (current) use of non-steroidal anti-inflammatories (NSAID)
CPT/HCPCS: 81001; 81025; 87086; 96372; 99284; J2550

== ENCOUNTER 2018-06-16 01:45 | Emergency (ER) | payer OTHER ==
[~2018-06-16] VITALS: Ht 162.6 cm; Wt 68.0 kg
[2018-06-16 01:49] VITALS: BP 144/72
--- NOTE | 2018-06-16 02:00 | NUR ---
PT TAKEN TO BED 12
[2018-06-16] MEDS ORDERED: ONDANSETRON 4 MG ODT PO ONE (02:05)
--- NOTE | 2018-06-16 02:05 | NUR ---
53/F PRESENTS TO ED, C/O 03/13 SUDDEN ONSET DULL/THROBBING MID TO LOWER ABD PAIN, RADIATING TO LOWER BACK, X2 HRS. PT STATED SHE WOKE UP WITH THE PAIN. PT TOOK NORCO 2 HRS AGO WITH NO RELIEF. PT REPORTS NAUSEA, DRY HEAVING AT THIS TIME. PT REPORTS MILD BURNING/DYSURIA. LBM YESTERDAY. DENIES FEVER, CONSTIPATION OR DIARRHEA. AOX4, GCS 15, RR EVEN AND UNLABORED, IN MILD DISTRESS OF PAIN WITH FACIAL GRIMACING. LUNG SOUNDS CLEAR BL. BS HYPOACTIVE X4, ABD SOFT ROUND TENDER TO LOWER AND MID ABD. HX "MEDULLARY SPONGE KIDNEY," PTSD, BIPOLAR, CHRONIC LOWER BACK PAIN, SCIATICA RX NORCO, LEXAPRO, SEROQUEL, ROBAXIN
--- NOTE | 2018-06-16 02:17 | NUR ---
Dr. Kirk evaluating patient at bedside.
[2018-06-16] MEDS ORDERED: NACL 0.9% 1,000 ML IV SCH (02:21)
[2018-06-16] MEDS ORDERED: MORPHINE SULFATE 4 MG/ML SYR IVP ONE ×2 (02:25→03:50)
[2018-06-16] MEDS ORDERED: ONDANSETRON 4 MG/2 ML VIAL IVP ONE ×2 (02:25→04:45)
[2018-06-16 02:45] LABS: BASOPHILS % (AUTO) 0.3 % (0.0-2.0); EOSINOPHILS # (AUTO) 0.1 K/uL (0-0.4); EOSINOPHILS % (AUTO) 2.5 % (0.0-4.0); HEMATOCRIT 32.3 % (36-48); LYMPHOCYTES # (AUTO) 1.7 K/uL (2.5-16.5); LYMPHOCYTES % (AUTO) 29.2 % (20.5-51.1); MEAN CORPUSCULAR HEMOGLOBIN 25 pg (27-31); MEAN CORPUSCULAR HGB CONC 31 g/dL (33-37); MEAN CORPUSCULAR VOLUME 80.2 fL (80-94); MONOCYTES # (AUTO) 0.4 K/uL (0.8-1.0); MONOCYTES % (AUTO) 6.5 % (1.7-9.3); NEUTROPHILS # (AUTO) 3.6 K/uL (1.8-7.7); NEUTROPHILS % (AUTO) 61.5 % (42.2-75.2); PLATELET COUNT (AUTO) 223 K/uL (140-450); RED BLOOD CELL COUNT(AUTO) 4.03 MIL/uL (4.20-5.40); RED CELL DISTRIBUTION WIDTH 18.6 % (11.6-13.7); WHITE BLOOD COUNT (AUTO) 5.9 K/uL (4.8-10.8)
[2018-06-16 02:47] LABS: APPEARANCE,URINE SL CLOUDY (CLEAR); BILIRUBIN,URINE NEGATIVE (NEGATIVE); BLOOD, URINE 3+ (NEGATIVE); COLOR,URINE YELLOW (YELLOW); LEUKOCYTE ESTERASE ,URINE 1+ (NEGATIVE); NITRITE, URINE NEGATIVE (NEGATIVE); PH,URINE 6.5 (5.0-9.0); UGLUCOSE NEGATIVE (NEGATIVE)
--- NOTE | 2018-06-16 02:50 | NUR ---
PT TAKEN TO CT
[2018-06-16 02:53] LABS: ANION GAP 15.1 (8-16); POTASSIUM 4.1 mmol/L (3.5-5.1)
[2018-06-16 02:57] LABS: RBC,URINE TOO NUMEROUS TO COUN /HPF (0-5); WBC,URINE TOO MANY TO COUNT /HPF (0-5)
[2018-06-16 02:59] LABS: ALBUMIN 3.6 g/dL (3.4-5.0); TOTAL BILIRUBIN 0.1 mg/dL (0.0-1.0)
--- NOTE | 2018-06-16 02:59 | NUR ---
PT RETURN FROM CT
--- NOTE | 2018-06-16 03:53 | NUR ---
PT C/O PERSISTENT MID/LOWER ABD AND LOWER BACK PAIN. ER MD MADE AWARE. ER MD AT BEDSIDE TO SPEAK WITH PT. ADMINISTERED MORPHINE IVP ORDERED WITH EDUCATION. PT VERBALIZED UNDERSTANDING, TOLERATED MED WELL.
--- NOTE | 2018-06-16 04:30 | NUR ---
DR SCHMID AT BEDSIDE
[2018-06-16 05:11] VITALS: BP 119/72
--- NOTE | 2018-06-16 05:11 | NUR ---
Patient discharged with v/s stable. Written and verbal after care instructions given and explained. Patient alert, oriented and verbalized understanding of instructions. Ambulatory with steady gait. All questions addressed prior to discharge. ID band removed. Patient advised to follow up with PMD. Rx of FLOMAX, CIPRO, ZOFRAN given. Patient educated on indication of medication including possible reaction and side effects. Opportunity to ask questions provided and answered.
== END 2018-06-16 05:11 | disposition home or self-care (01) ==
LOC: MED 01:45
DX: N20.2 Calculus of kidney with calculus of ureter (principal); N39.0 Urinary tract infection, site not specified; G89.29 Other chronic pain; M54.5 Low back pain; Z98.84 Bariatric surgery status; Z88.2 Allergy status to sulfonamides; Z88.6 Allergy status to analgesic agent; Z79.899 Other long term (current) drug therapy
CPT/HCPCS: 36415; 74176; 80053; 81001; 81025; 83690; 85025; 87086; 96374; 96375; 96376; 99284; J2270; J2405; Q0162

== ENCOUNTER 2018-06-18 18:23 | Inpatient (IN) | payer OTHER ==
[~2018-06-18] VITALS: Ht 162.6 cm; Wt 68.0 kg
[2018-06-18 18:33] VITALS: BP 143/79
[2018-06-18] MEDS ORDERED: NACL 0.9% 1,000 ML IV ONE (20:52)
[2018-06-18] MEDS ORDERED: ONDANSETRON 4 MG/2 ML VIAL IVP ONE (20:55)
[2018-06-18] MEDS ORDERED: MORPHINE SULFATE 4 MG/ML SYR IVP ONE ×2 (20:55→22:20)
[2018-06-18 22:06] LABS: BASOPHILS % (AUTO) 0.3 % (0.0-2.0); EOSINOPHILS # (AUTO) 0.1 K/uL (0-0.4); EOSINOPHILS % (AUTO) 1.9 % (0.0-4.0); HEMATOCRIT 28.2 % (36-48); HEMOGLOBIN 8.8 g/dL (12.0-16.0); LYMPHOCYTES # (AUTO) 1.8 K/uL (2.5-16.5); LYMPHOCYTES % (AUTO) 29.5 % (20.5-51.1); MEAN CORPUSCULAR HEMOGLOBIN 25 pg (27-31); MEAN CORPUSCULAR HGB CONC 31 g/dL (33-37); MEAN CORPUSCULAR VOLUME 79.8 fL (80-94); MONOCYTES # (AUTO) 0.6 K/uL (0.8-1.0); MONOCYTES % (AUTO) 8.9 % (1.7-9.3); NEUTROPHILS # (AUTO) 3.7 K/uL (1.8-7.7); NEUTROPHILS % (AUTO) 59.4 % (42.2-75.2); PLATELET COUNT (AUTO) 194 K/uL (140-450); RED BLOOD CELL COUNT(AUTO) 3.53 MIL/uL (4.20-5.40); RED CELL DISTRIBUTION WIDTH 18.3 % (11.6-13.7); WHITE BLOOD COUNT (AUTO) 6.3 K/uL (4.8-10.8)
[2018-06-18] MEDS ORDERED: KETAMINE 10 MG/ML UD SYR **ER IVP ONE (22:20)
[2018-06-18 22:55] LABS: APPEARANCE,URINE CLEAR (CLEAR); BILIRUBIN,URINE NEGATIVE (NEGATIVE); BLOOD, URINE 3+ (NEGATIVE); COLOR,URINE YELLOW (YELLOW); LEUKOCYTE ESTERASE ,URINE NEGATIVE (NEGATIVE); NITRITE, URINE NEGATIVE (NEGATIVE); UGLUCOSE NEGATIVE (NEGATIVE)
[2018-06-18 22:58] LABS: ANION GAP 10.9 (8-16); CARBON DIOXIDE 26.1 mmol/L (21-32)
[2018-06-18 22:59] LABS: CREATININE 0.5 mg/dL (0.6-1.3); TOTAL BILIRUBIN 0.2 mg/dL (0.0-1.0)
[2018-06-18 23:00] LABS: ALBUMIN 3.2 g/dL (3.4-5.0)
[2018-06-18 23:41] LABS: RBC,URINE >100 /HPF (0-5); WBC,URINE 6-15 (FEW) /HPF (0-5)
[2018-06-19] MEDS ORDERED: HYDROcodone/APAP 5/325 MG 1 TAB TAB PO ONE (00:20)
[2018-06-19] MEDS ORDERED: MORPHINE SULFATE 4 MG/ML SYR IVP ONE (00:35)
[2018-06-19] MEDS ORDERED: DEXT 5% /NACL 0.9% 1,000 ML IV ONE (00:50)
[2018-06-19] MEDS ORDERED: ACETAMINOPHEN 325 MG TAB PO PRN (00:50)
[2018-06-19 01:30] VITALS: BP 108/72
[2018-06-19] MEDS: MORPHINE SULFATE 4 MG/ML SYR IVP PRN ×2 (03:46→06:45)
[2018-06-19] MEDS: ONDANSETRON 4 MG/2 ML VIAL IVP PRN ×3 (06:44→21:04)
[2018-06-19 07:39] LABS: BASOPHILS % (AUTO) 0.3 % (0.0-2.0); EOSINOPHILS # (AUTO) 0.1 K/uL (0-0.4); EOSINOPHILS % (AUTO) 2.3 % (0.0-4.0); HEMATOCRIT 28.2 % (36-48); HEMOGLOBIN 8.9 g/dL (12.0-16.0); LYMPHOCYTES # (AUTO) 1.6 K/uL (2.5-16.5); LYMPHOCYTES % (AUTO) 33.1 % (20.5-51.1); MEAN CORPUSCULAR HEMOGLOBIN 25 pg (27-31); MEAN CORPUSCULAR HGB CONC 31 g/dL (33-37); MEAN CORPUSCULAR VOLUME 79.7 fL (80-94); MONOCYTES # (AUTO) 0.4 K/uL (0.8-1.0); MONOCYTES % (AUTO) 8.1 % (1.7-9.3); NEUTROPHILS # (AUTO) 2.7 K/uL (1.8-7.7); NEUTROPHILS % (AUTO) 56.2 % (42.2-75.2); PLATELET COUNT (AUTO) 199 K/uL (140-450); RED BLOOD CELL COUNT(AUTO) 3.54 MIL/uL (4.20-5.40); WHITE BLOOD COUNT (AUTO) 4.8 K/uL (4.8-10.8)
[2018-06-19 07:59] LABS: ANION GAP 12.7 (8-16); CARBON DIOXIDE 26.1 mmol/L (21-32); POTASSIUM 3.8 mmol/L (3.5-5.1)
[2018-06-19 08:00] VITALS: BP 121/75
[2018-06-19] MEDS ORDERED: traMADol 50 MG TAB PO PRN (09:55)
[2018-06-19] MEDS ORDERED: DOCUSATE SODIUM 100 MG GELCAP PO PRN (09:55)
[2018-06-19] MEDS ORDERED: KETOROLAC 15 MG/ML VIAL IM PRN (10:00)
[2018-06-19] MEDS: POTASSIUM CHLORIDE 10 MEQ in NACL 0.9% 1,000 ML IV SCH ×2 (12:57→20:56)
[2018-06-19] MEDS: HYDROcodone/APAP 10/325 MG 1 TAB TAB PO PRN ×2 (13:01→18:35)
[2018-06-19 16:00] VITALS: BP 122/77
[2018-06-20] VITALS: BP 139/83
[2018-06-20] MEDS: HYDROcodone/APAP 10/325 MG 1 TAB TAB PO PRN (00:37)
[2018-06-20] MEDS: POTASSIUM CHLORIDE 10 MEQ in NACL 0.9% 1,000 ML IV SCH ×2 (04:31→10:09)
[2018-06-20 08:00] VITALS: BP 134/54
[2018-06-20] MEDS ORDERED: TAMSULOSIN 0.4 MG CAP PO SCH (08:30)
[2018-06-20] MEDS: ONDANSETRON 4 MG/2 ML VIAL IVP PRN (08:56)
[2018-06-20] MEDS ORDERED: QUEtiapine FUMARATE 100 MG TAB PO SCH (09:00)
[2018-06-20] MEDS ORDERED: POLYETHYLENE GLYCOL 17 GM PO SCH (09:00)
[2018-06-20] MEDS ORDERED: QUEtiapine FUMARATE 25 MG TAB PO SCH (09:00)
[2018-06-20] MEDS ORDERED: POLYETHYLENE GLYCOL 17 GM/PKT PO SCH (09:00)
[2018-06-20] MEDS ORDERED: TAMS0.4C96 PO (11:23)
[2018-06-20] MEDS ORDERED: TRAM50TA3 PO (11:23)
[2018-06-20 12:49] LABS: BASOPHILS % (AUTO) 0.2 % (0.0-2.0); EOSINOPHILS # (AUTO) 0.1 K/uL (0-0.4); EOSINOPHILS % (AUTO) 1.5 % (0.0-4.0); HEMATOCRIT 28.8 % (36-48); LYMPHOCYTES # (AUTO) 0.9 K/uL (2.5-16.5); LYMPHOCYTES % (AUTO) 20.3 % (20.5-51.1); MEAN CORPUSCULAR HEMOGLOBIN 25 pg (27-31); MEAN CORPUSCULAR HGB CONC 31 g/dL (33-37); MEAN CORPUSCULAR VOLUME 79.4 fL (80-94); MONOCYTES # (AUTO) 0.3 K/uL (0.8-1.0); MONOCYTES % (AUTO) 7.7 % (1.7-9.3); NEUTROPHILS % (AUTO) 70.3 % (42.2-75.2); PLATELET COUNT (AUTO) 191 K/uL (140-450); RED BLOOD CELL COUNT(AUTO) 3.63 MIL/uL (4.20-5.40); WHITE BLOOD COUNT (AUTO) 4.3 K/uL (4.8-10.8)
[2018-06-20 13:28] LABS: ANION GAP 11.8 (8-16); CARBON DIOXIDE 27.4 mmol/L (21-32); CREATININE 0.9 mg/dL (0.6-1.3); POTASSIUM 4.2 mmol/L (3.5-5.1); TOTAL BILIRUBIN 0.2 mg/dL (0.0-1.0)
== END 2018-06-20 16:01 | disposition home or self-care (01) | DRG 465 ==
LOC: MED 18:23 → MTU 06-19 00:46
PROVIDERS: ADMIT Hospitalist; ATTEND Hospitalist
DX: N20.0 Calculus of kidney (principal); E44.1 Mild protein-calorie malnutrition; D50.9 Iron deficiency anemia, unspecified; K59.00 Constipation, unspecified; F32.9 Major depressive disorder, single episode, unspecified; G89.29 Other chronic pain; N29 Other disorders of kidney and ureter in diseases classified elsewhere; R19.09 Other intra-abdominal and pelvic swelling, mass and lump; Z68.25 Body mass index [BMI] 25.0-25.9, adult; Z88.2 Allergy status to sulfonamides; Z88.8 Allergy status to other drugs, medicaments and biological substances; Z79.899 Other long term (current) drug therapy; Z79.891 Long term (current) use of opiate analgesic
CPT/HCPCS: 36415; 76770; 76830; 76856; 80048; 80053; 81001; 83690; 85025; 85651; 86140; 87086; 96361; 96374; 96375; 96376; 99285; J2270; J2405; J3480; J7030; J7042; Q0092

== ENCOUNTER 2018-07-16 07:37 | Emergency (ER) | payer OTHER ==
[~2018-07-16] VITALS: Ht 165.1 cm; Wt 65.5 kg
[~2018-07-16 07:37] MED LIST changes: -ACET-9494 PO; +TAMS0.4C96 PO
[2018-07-16 07:42] VITALS: BP 120/80
--- NOTE | 2018-07-16 08:00 | NUR ---
A 53 YO F BIB SELF W/ C/O CHRONIC LOW BACK PAIN W/ 2 DAYS EXACERBATION. PT REPORTS SHE PASSED 2 SMALL KIDNEY STONES LAST NIGHT AND THINKS THAT THERE ARE MORE. STATES SHE HAS BEEN TAKING HER NORCO W/O RELIEF. REPORTS NAUSEA, DENIES VOMITING AND FEVERS. STEADY GAIT, NO FACIAL GRIMACING NOTED. RR EVEN AND UNLABORED. HOB ELEVATED. VSS. ER MD MADE AWARE. WILL CONTINUE TO MONITOR. SAFETY PRECAUTIONS IN PLACE.
--- NOTE | 2018-07-16 08:19 | NUR ---
PT. PROVIDED WITH A BLANKET.
[2018-07-16] MEDS ORDERED: MORPHINE SULFATE 4 MG/ML SYR IM ONE (09:40)
[2018-07-16] MEDS ORDERED: PROMETHAZINE 25 MG/ML VIAL IM ONE (09:40)
--- NOTE | 2018-07-16 10:08 | NUR ---
PT. RESTING COMFORTABLY IN BED, HOB ELEVATED 30 DEGREES. VSS. WILL CONTINUE TO MONITOR. SIDERAILS X 2 UP.
[2018-07-16 10:41] VITALS: BP 124/80
--- NOTE | 2018-07-16 10:41 | NUR ---
Patient discharged with v/s stable. Written and verbal after care instructions given and explained. Patient alert, oriented and verbalized understanding of instructions. Ambulatory with steady gait. All questions addressed prior to discharge. ID band removed. Patient advised to follow up with PMD. Rx of BENTYL 20MG given. Patient educated on indication of medication including possible reaction and side effects. Opportunity to ask questions provided and answered.
[2018-07-16 11:18] LABS: APPEARANCE,URINE CLOUDY (CLEAR); BILIRUBIN,URINE NEGATIVE (NEGATIVE); BLOOD, URINE 3+ (NEGATIVE); COLOR,URINE YELLOW (YELLOW); LEUKOCYTE ESTERASE ,URINE TRACE (NEGATIVE); NITRITE, URINE NEGATIVE (NEGATIVE); PH,URINE 6.5 (5.0-9.0); UGLUCOSE NEGATIVE (NEGATIVE)
[2018-07-16 12:42] LABS: RBC,URINE >100 /HPF (0-5); WBC,URINE 6-15 (FEW) /HPF (0-5)
== END 2018-07-16 10:41 | disposition home or self-care (01) ==
LOC: MED 07:37
DX: G89.29 Other chronic pain (principal); M54.9 Dorsalgia, unspecified; Z87.442 Personal history of urinary calculi; Z88.2 Allergy status to sulfonamides; Z88.6 Allergy status to analgesic agent; Z88.8 Allergy status to other drugs, medicaments and biological substances; Z79.891 Long term (current) use of opiate analgesic; Z79.899 Other long term (current) drug therapy
CPT/HCPCS: 81001; 81025; 87086; 96372; 99283; J2270; J2550

== ENCOUNTER 2018-10-16 10:41 | Emergency (ER) | payer OTHER ==
[~2018-10-16] VITALS: Ht 162.6 cm; Wt 63.5 kg
[2018-10-16 11:04] VITALS: BP 146/87
--- NOTE | 2018-10-16 11:59 | NUR ---
PT TAKEN TO CT AT THIS TIME
--- NOTE | 2018-10-16 12:14 | NUR ---
PT TO ER BED 7
--- NOTE | 2018-10-16 12:16 | NUR ---
PT BIB FAMILY TO THE ED WITH THE CHIEF C/O LEFT FLANK PAIN SINCE YESTERDAY. NAUSEATED AT THIS TIME. DENIES VOMITING OR DIARRHEA. HX OF KIDNEY STONE, BOWEL OBSTRUCTION AND GASTRIC BYPASS. . PER PT, SHE PASSED A STONE DURING URINATION A WEEK AGO. STATES PAIN 04/12. VSS. ER AWARE.
[2018-10-16 12:53] LABS: BASOPHILS % (AUTO) 0.6 % (0.0-2.0); EOSINOPHILS # (AUTO) 0.6 K/uL (0-0.4); EOSINOPHILS % (AUTO) 7.3 % (0.0-4.0); HEMATOCRIT 31.6 % (36-48); LYMPHOCYTES # (AUTO) 1.5 K/uL (2.5-16.5); LYMPHOCYTES % (AUTO) 19.1 % (20.5-51.1); MEAN CORPUSCULAR HEMOGLOBIN 24 pg (27-31); MEAN CORPUSCULAR HGB CONC 32 g/dL (33-37); MEAN CORPUSCULAR VOLUME 75.6 fL (80-94); MONOCYTES # (AUTO) 0.4 K/uL (0.8-1.0); MONOCYTES % (AUTO) 4.8 % (1.7-9.3); NEUTROPHILS # (AUTO) 5.5 K/uL (1.8-7.7); NEUTROPHILS % (AUTO) 68.2 % (42.2-75.2); PLATELET COUNT (AUTO) 321 K/uL (140-450); RED BLOOD CELL COUNT(AUTO) 4.19 MIL/uL (4.20-5.40); RED CELL DISTRIBUTION WIDTH 18.8 % (11.6-13.7); WHITE BLOOD COUNT (AUTO) 8.1 K/uL (4.8-10.8)
[2018-10-16 12:56] LABS: ANION GAP 13.2 (8-16); CARBON DIOXIDE 23.8 mmol/L (21-32)
--- NOTE | 2018-10-16 12:56 | NUR ---
PT BEING SEEN BY ER AT THIS TIME.
[2018-10-16 13:02] LABS: ALBUMIN 3.6 g/dL (3.4-5.0); TOTAL BILIRUBIN 0.2 mg/dL (0.0-1.0)
[2018-10-16 13:05] LABS: APPEARANCE,URINE CLEAR (CLEAR); BILIRUBIN,URINE NEGATIVE (NEGATIVE); BLOOD, URINE 3+ (NEGATIVE); COLOR,URINE YELLOW (YELLOW); LEUKOCYTE ESTERASE ,URINE NEGATIVE (NEGATIVE); NITRITE, URINE NEGATIVE (NEGATIVE); UGLUCOSE NEGATIVE (NEGATIVE)
[2018-10-16] MEDS ORDERED: MORPHINE SULFATE 2 MG/ML SYR IVP ONE ×2 (13:10→14:10)
[2018-10-16] MEDS ORDERED: diphenhydrAMINE 50 MG/ML VIAL IVP ONE (13:10)
[2018-10-16] MEDS ORDERED: NACL 0.9% 1,000 ML IV ONE (13:10)
[2018-10-16 13:21] LABS: RBC,URINE >100 /HPF (0-5)
[2018-10-16] MEDS ORDERED: ONDANSETRON 4 MG/2 ML VIAL IVP ONE (13:30)
--- NOTE | 2018-10-16 17:32 | NUR ---
RESTING IN BED. NS INFUSING. DENIES NAUSEA. NO VOMITING NOTED. NO C/O PAIN AT THIS TIME. VSS.
[2018-10-16] MEDS: MORPHINE SULFATE 2 MG/ML SYR IVP ONE ×2 (18:54→19:03)
--- NOTE | 2018-10-16 19:23 | NUR ---
[facility] AT BEDSIDE
--- NOTE | 2018-10-16 19:23 | NUR ---
REPORT GIVEN TO STAMPING OPERATOR RN FOR CONTINUITY OF CARE.
--- NOTE | 2018-10-16 19:35 | NUR ---
Note undone in EDM - 10/16/18 at 1939 by [email or web address] Patient to be transferred to [facility]. Is being transferred due to 581B ubder the care of Terrence Forbes. Receiving facility has accepting physician and available space. ER physician has signed transfer form. Patient or responsible constitution party has agreed to transfer and signed form. Patient belongings inventoried and will be sent with patient. Copy of nursing notes, lab reports, EKG, Physicians Orders and X-rays to be sent with patient. Report called to KAMI BARRON at receiving facility. [facility] ambulance service has been called for transfer at the bedside.
--- NOTE | 2018-10-16 19:35 | NUR ---
Patient to be transferred to [facility]. Is being transferred due to 581[address] ubder the care of Terrence Forbes. Receiving facility has accepting physician and available space. ER physician has signed transfer form. Patient or responsible alliance party has agreed to transfer and signed form. Patient belongings inventoried and will be sent with patient. Copy of nursing notes, lab reports, EKG, Physicians Orders and X-rays to be sent with patient. Report called to KAMI BARRON at receiving facility. [facility] ambulance service has been called for transfer at the bedside.
--- NOTE | 2018-10-16 19:42 | NUR ---
PT TAKEN TO [facility] TO [facility]
[2018-10-16 19:43] VITALS: BP 114/73
== END 2018-10-16 19:42 | disposition short-term general hospital (02) ==
LOC: MED 10:41
DX: R19.00 Intra-abdominal and pelvic swelling, mass and lump, unspecified site (principal); N13.30 Unspecified hydronephrosis; R31.9 Hematuria, unspecified; E11.9 Type 2 diabetes mellitus without complications; Z87.442 Personal history of urinary calculi; Z79.899 Other long term (current) drug therapy; Z88.5 Allergy status to narcotic agent; Z88.2 Allergy status to sulfonamides; Z88.8 Allergy status to other drugs, medicaments and biological substances
CPT/HCPCS: 36415; 74176; 80053; 81001; 81025; 85025; 87086; 96374; 96375; 96376; 99285; J1200; J2270; J2405; J7030

== ENCOUNTER 2018-11-08 13:54 | Emergency (ER) | payer OTHER ==
[~2018-11-08] VITALS: Ht 162.6 cm; Wt 60.0 kg
[2018-11-08 14:03] VITALS: BP 153/74
--- NOTE | 2018-11-08 14:18 | NUR ---
PT TO ER BED 9
--- NOTE | 2018-11-08 14:20 | NUR ---
PT PRESENTS TO ED WITH C/O ABD PAIN AND BACK PAIN AND WOUND CHECK FOR ABD WOUND. PT HAD SURGERY ON 10/20 FOR ABDOMINAL HYSTERECTOMY. AAO X4, GCS 15, ABLE TO SPEAK WITH FULL COMPLETESENTENCES. RESPIATIONS EVEN AND UNLABORED, BL LUNG CLEAR. SKIN WARM/PINK/DRY, +PMAC. ABDOMEN SOFT, NONDISTEDED, ACTIVE BOWEL SOUND X4. SX WOUND TO LOWER ABDOMEN CLEAN, NO S/SX OF INFECTION. VSS, NO ACUTE DISTRESS AT THIS TIME. WILL CONTINUE TO MONITOR
[2018-11-08] MEDS ORDERED: NEOMYCIN/POLYMYXIN/BACITRACIN 0.9 GM/1 PKT TP ONE (15:05)
[2018-11-08] MEDS ORDERED: LORazepam 2 MG/ML VIAL IM ONE (15:05)
[2018-11-08] MEDS ORDERED: MORPHINE SULFATE 4 MG/ML SYR IM ONE (16:25)
[2018-11-08] MEDS ORDERED: ONDANSETRON 4 MG ODT PO ONE (16:50)
[2018-11-08] MEDS ORDERED: PROMETHAZINE 25 MG/ML VIAL IM ONE (16:50)
[2018-11-08 17:19] VITALS: BP 121/89
--- NOTE | 2018-11-08 17:20 | NUR ---
Patient discharged with v/s stable. Written and verbal after care instructions given and explained. Patient alert, oriented and verbalized understanding of instructions. Ambulatory with steady gait. All questions addressed prior to discharge. ID band removed. Patient advised to follow up with PMD. Rx of TRAMADOL, ATARAX given. Patient educated on indication of medication including possible reaction and side effects. Opportunity to ask questions provided and answered.
== END 2018-11-08 17:15 | disposition home or self-care (01) ==
LOC: MED 13:54
DX: F41.0 Panic disorder [episodic paroxysmal anxiety] (principal); E11.9 Type 2 diabetes mellitus without complications; Z90.710 Acquired absence of both cervix and uterus; Z79.899 Other long term (current) drug therapy; Z88.5 Allergy status to narcotic agent; Z88.2 Allergy status to sulfonamides; Z88.8 Allergy status to other drugs, medicaments and biological substances
CPT/HCPCS: 81002; 81025; 96372; 99283; J2060; J2270; J2550; Q0162

== ENCOUNTER 2018-12-09 14:40 | Observation (INO) | payer OTHER ==
[~2018-12-09] VITALS: Ht 162.6 cm; Wt 59.0 kg
[2018-12-09 14:46] VITALS: BP 116/70
--- NOTE | 2018-12-09 15:02 | NUR ---
Dr. Be evaluating patient at bedside.
[2018-12-09] MEDS ORDERED: NACL 0.9% 1,000 ML IV ONE (15:05)
[2018-12-09] MEDS ORDERED: NACL 0.9% 1,500 ML IV SCH (15:05)
[2018-12-09] MEDS ORDERED: CLINDAMYCIN 900 MG in DEXTROSE 5% 100 ML IV ONE (15:05)
[2018-12-09] MEDS ORDERED: LORazepam 2 MG/ML VIAL IM ONE (15:30)
--- NOTE | 2018-12-09 15:36 | NUR ---
PT TO CT SCAN VIA [facility]
[2018-12-09] MEDS ORDERED: CLINDAMYCIN 900 MG/6 ML VIAL IV ONE ×2 (15:43)
[2018-12-09 15:55] LABS: AMYLASE 121 U/L (25-115); LIPASE 243 U/L (73-393)
[2018-12-09 16:00] LABS: ALBUMIN 3.4 g/dL (3.4-5.0); ANION GAP 12.9 (8-16); CREATININE 1.1 mg/dL (0.6-1.3); POTASSIUM 3.9 mmol/L (3.5-5.1); TOTAL BILIRUBIN 0.2 mg/dL (0.0-1.0)
--- NOTE | 2018-12-09 16:00 | NUR ---
WOUND CLEANED WITH SALINE AND CULTURED. DERMABOND AND STERI STRIPS APPLIED TO WOUND. PT TOLERATED WELL.
[2018-12-09 16:04] LABS: BASOPHILS % (AUTO) 0.2 % (0.0-2.0); EOSINOPHILS # (AUTO) 0.2 K/uL (0-0.4); EOSINOPHILS % (AUTO) 2.8 % (0.0-4.0); HEMATOCRIT 31.7 % (36-48); HEMOGLOBIN 10.3 g/dL (12.0-16.0); LYMPHOCYTES # (AUTO) 1.3 K/uL (2.5-16.5); LYMPHOCYTES % (AUTO) 19.4 % (20.5-51.1); MEAN CORPUSCULAR HEMOGLOBIN 26 pg (27-31); MEAN CORPUSCULAR HGB CONC 32 g/dL (33-37); MEAN CORPUSCULAR VOLUME 81.5 fL (80-94); MONOCYTES # (AUTO) 0.6 K/uL (0.8-1.0); MONOCYTES % (AUTO) 8.8 % (1.7-9.3); NEUTROPHILS # (AUTO) 4.7 K/uL (1.8-7.7); NEUTROPHILS % (AUTO) 68.8 % (42.2-75.2); PLATELET COUNT (AUTO) 358 K/uL (140-450); RED BLOOD CELL COUNT(AUTO) 3.89 MIL/uL (4.20-5.40); RED CELL DISTRIBUTION WIDTH 22.6 % (11.6-13.7); WHITE BLOOD COUNT (AUTO) 6.8 K/uL (4.8-10.8)
[2018-12-09 16:29] LABS: APPEARANCE,URINE CLEAR (CLEAR); BILIRUBIN,URINE NEGATIVE (NEGATIVE); BLOOD, URINE 2+ (NEGATIVE); COLOR,URINE YELLOW (YELLOW); LEUKOCYTE ESTERASE ,URINE TRACE (NEGATIVE); NITRITE, URINE NEGATIVE (NEGATIVE); UGLUCOSE NEGATIVE (NEGATIVE)
[2018-12-09] MEDS ORDERED: MORPHINE SULFATE 4 MG/ML SYR IM ONE (16:30)
[2018-12-09 16:35] LABS: RBC,URINE 50-80 /HPF (0-5)
[2018-12-09] MEDS ORDERED: ONDANSETRON 4 MG/2 ML VIAL IVP ONE (16:40)
--- NOTE | 2018-12-09 17:30 | NUR ---
pt c/o pain, dr brandon made aware, will speak w/ pt.
[2018-12-09] MEDS: NACL 0.9% 1,000 ML IV ONE (18:40)
[2018-12-09 19:17] LABS: FREE T4 (FREE THYROXINE) 0.72 ng/dL (0.76-1.46); MAGNESIUM 1.9 mg/dL (1.8-2.4); PHOSPHORUS 4.7 mg/dL (2.5-4.9); THYROID STIMULATING HORMONE 2.47 uIU/mL (0.34-3.74)
[2018-12-09] MEDS ORDERED: ONDA4TAB PO (19:24)
[2018-12-09] MEDS ORDERED: SERT50TA PO (19:24)
[2018-12-09] MEDS ORDERED: QUET100T PO (19:24)
[2018-12-09] MEDS ORDERED: DOXY100C9 PO (19:24)
[2018-12-09] MEDS ORDERED: RANI-745 PO (19:24)
[2018-12-09] MEDS ORDERED: CETI-32 PO (19:24)
[2018-12-09] MEDS ORDERED: METR-435 PO (19:24)
--- NOTE | 2018-12-09 19:34 | NUR ---
aPatient will be admitted to care of dr lechuga. Admited to tele. Will go to room 106-a. Belongings list completed. Report to galindo.
--- NOTE | 2018-12-09 19:35 | NUR ---
RECEIVED FROM ER PER LORENZO AWAKE AND ALERT. PT. A/O X 4. ROM X 4. ABLE TO CARRY A GOOD CONVERSATION WELL WITH ME. DX. OF UTI. RAPID RESPONSE MECHANISM EXPLAINED TO HER. CALL LIGHT USE EXPLAINED AND CARE PLANS FOR THE NIGHT DISCUSSED WITH HER. PT. IVF SITE TO RAC#[id number] WITH NS AT 100 ML/H. S/P HYSTERECTOMY LAST OCTOBER AND WITH SMALL DEHISCENCE NOTED. TREATED IN ER WITH DERMABOND AND STERI STRIPES PER ER NURSE. PER PT. SHE CAN WALK WITH OUT ASSIST . INDEPENDENT. AFEBRILE.
[2018-12-09 20:01] VITALS: BP 127/73
[2018-12-09] MEDS ORDERED: ENOXAPARIN 40 MG/0.4 ML SYR SUBQ ONE (21:00)
[2018-12-09] MEDS ORDERED: PIPERACILLIN/TAZOBACTAM 3.375 GM in DEXTROSE 5% 50 ML IV ONE (21:00)
[2018-12-09] MEDS ORDERED: PIPERACILLIN/TAZOBACTAM 3.375 GM VIAL IV ONE (21:25)
[2018-12-09] MEDS ORDERED: MORPHINE SULFATE 4 MG/ML SYR ONE (21:41)
--- NOTE | 2018-12-09 22:30 | NUR ---
PT. AWAKE AND ALERT. A/O X 4. ROM X 4. CLEAR SPEECH. PT. ABLE TO USE CALL LIGHT FOR HELP.
[2018-12-10] VITALS: BP 115/63
--- NOTE | 2018-12-10 | NUR ---
VITAL SIGNS TAKEN. SLEEPING BUT WOKE UP EASILY. VERBALIZING WELL. WENT BACK TO SLEEP WITH OUT ANY COMPLAINTS DONE.
--- NOTE | 2018-12-10 01:52 | NUR ---
SLEEPING AT THIS TIME.
[2018-12-10] MEDS: MORPHINE SULFATE 4 MG/ML SYR IVP PRN ×2 (02:14→09:02)
[2018-12-10 04:27] VITALS: BP 108/62
--- NOTE | 2018-12-10 04:55 | NUR ---
NS 1 LITER AT 75 ML ORDERED INFUSED AT THIS TIME . IVF SITE WITH GOOD BLOOD RETURN .SLEEPING WELL THIS SHIFT. WOKE UP EASILY WHEN TOUCHED OR CALLED BY NAME. A/O X 4. ROM X 4. CLEAR SPEECH. ON TELEMETRY MONITORING. WILL ENDORSE IRWIN DIAZ RN FOR CONTINUITY OF CARE. .
[2018-12-10] MEDS: NACL 0.9% 1,000 ML IV ONE (04:56)
--- NOTE | 2018-12-10 07:16 | NUR ---
ENDORSED TO THE NEXT RN FOR CONTINUITY OF CARE. AWAKE AND ALERT. NO SOB.
--- NOTE | 2018-12-10 07:20 | NUR ---
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 WILL MEDICATE PT AND MONITOR PT.
--- NOTE | 2018-12-10 07:58 | NUR ---
PATIENT HAS BEEN SCREENED AND CATEGORIZED LOW NUTRITION RISK. PATIENT WILL BE SEEN WITHIN 7 DAYS OF ADMISSION. 12/15/18
[2018-12-10 08:00] VITALS: BP 110/67
[2018-12-10 08:10] LABS: BASOPHILS % (AUTO) 0.5 % (0.0-2.0); EOSINOPHILS # (AUTO) 0.3 K/uL (0-0.4); HEMOGLOBIN 8.8 g/dL (12.0-16.0); LYMPHOCYTES # (AUTO) 2.1 K/uL (2.5-16.5); LYMPHOCYTES % (AUTO) 38.4 % (20.5-51.1); MEAN CORPUSCULAR HEMOGLOBIN 27 pg (27-31); MEAN CORPUSCULAR HGB CONC 33 g/dL (33-37); MEAN CORPUSCULAR VOLUME 82.2 fL (80-94); MONOCYTES # (AUTO) 0.5 K/uL (0.8-1.0); MONOCYTES % (AUTO) 10.1 % (1.7-9.3); NEUTROPHILS # (AUTO) 2.4 K/uL (1.8-7.7); PLATELET COUNT (AUTO) 284 K/uL (140-450); RED BLOOD CELL COUNT(AUTO) 3.29 MIL/uL (4.20-5.40); RED CELL DISTRIBUTION WIDTH 22.5 % (11.6-13.7); WHITE BLOOD COUNT (AUTO) 5.4 K/uL (4.8-10.8)
[2018-12-10 08:27] LABS: ANION GAP 12.3 (8-16); CARBON DIOXIDE 25.6 mmol/L (21-32); POTASSIUM 4.9 mmol/L (3.5-5.1)
[2018-12-10] MEDS ORDERED: ENOXAPARIN 40 MG/0.4 ML SYR SUBQ SCH (09:00)
[2018-12-10] MEDS ORDERED: PIPER/TAZO 3.375GM/D5W PREMIX 50 ML IV SCH (09:00)
--- NOTE | 2018-12-10 09:01 | NUR ---
PT VERBALIZED A PAIN RATE OF 8/10 AND WAS GIVEN MORPHINE VIA IV PUSH. WILL RE-ASSESS AND MONITOR PT.
--- NOTE | 2018-12-10 09:05 | NUR ---
PT IS AWAKE AND MEDICATIONS WERE GIVEN AND PT TOLERATED IT. WILL MONITOR PT.
[2018-12-10 11:23] LABS: MAGNESIUM 1.8 mg/dL (1.8-2.4); PHOSPHORUS 5.2 mg/dL (2.5-4.9)
[2018-12-10 12:00] VITALS: BP 105/63
[2018-12-10] MEDS ORDERED: TRAM50TA1 PO (12:30)
--- NOTE | 2018-12-10 13:05 | NUR ---
DISCHARGED PT VIA WHEELCHAIR ACCOMPANIED BY , IV LINE AND ARM BAND REMOVED, TEACHINGS AND INSTRUCTIONS GIVEN TO PT AND VERBALIZED UNDERSTANDING. PT IS STABLE AT THIS TIME.
--- NOTE | 2018-12-11 08:04 | NUR ---
Wound care consult not done, pt. discharged.
[2018-12-11 08:15] LABS: T4 (THYROXINE) 5.4 ug/dL (4.5-12.0)
== END 2018-12-10 13:05 | disposition home or self-care (01) ==
LOC: MED 14:40 → MTU 18:35
PROVIDERS: ADMIT Internal Medicine; ATTEND Internal Medicine
DX: R10.2 Pelvic and perineal pain (principal); E11.9 Type 2 diabetes mellitus without complications; C56.9 Malignant neoplasm of unspecified ovary; Z85.43 Personal history of malignant neoplasm of ovary; Z90.710 Acquired absence of both cervix and uterus; N20.0 Calculus of kidney; N39.0 Urinary tract infection, site not specified; R31.9 Hematuria, unspecified
CPT/HCPCS: 36415; 74176; 80048; 80053; 81001; 82150; 83036; 83605; 83690; 83735; 83880; 84100; 84436; 84439; 84443; 84479; 85025; 87040; 87070; 87081; 87086; 87186; 96365; 96366; 96367; 96372; 96375; 96376; 99285; G0378; J1650; J2060; J2270; J2405; J2543; J3490; J7030; J7060; Q0092; 96361

== ENCOUNTER 2018-12-15 07:30 | Inpatient (IN) | payer OTHER ==
[~2018-12-15] VITALS: Ht 162.6 cm; Wt 60.3 kg
[~2018-12-15 07:30] MED LIST changes: +CETI-32 PO; -DOCU-299 PO; +DOXY100C9 PO; +METR-435 PO; +ONDA4TAB PO; -POLY17PD46 PO; +QUET100T PO; +RANI-745 PO; +SERT50TA PO; -TAMS0.4C96 PO; +TRAM50TA1 PO; -TRAM50TA3 PO
[2018-12-15 07:39] VITALS: BP 141/91
--- NOTE | 2018-12-15 07:42 | NUR ---
Patient ambulated to bed 2 with family. RN evaluating patient at bedside.
--- NOTE | 2018-12-15 07:50 | NUR ---
53 Y FEMALE BIB C/O L FLANK PAIN RADIATING TO LOWER PELVIC AREA X LAST NIGHT. +DYSURIA. PAIN 10/ DESCRIBED STABBING. PT HAS A MEDIAL PORT R CHEST THAT WAS PLACED TUESDAY. PT ON CHEMO TREATMENTS. VSS AT THIS TIME. AA0X4. BED IS DOWN, LOCKED, BED RAIL X 1, ERMD TO SEE PT. PMH- KIDNEY STONES, OVARIAN CANCER, DEPRESSION
--- NOTE | 2018-12-15 07:54 | NUR ---
PT VISABLY IN PAIN. GAURDING PELVIC AREA. FACIAL GRIMACING.
--- NOTE | 2018-12-15 08:03 | NUR ---
DR JOSEPH AT BEDSIDE
[2018-12-15] MEDS ORDERED: NACL 0.9% 1,000 ML IV SCH (08:28)
[2018-12-15] MEDS ORDERED: NACL 0.9% 1,000 ML IV ONE (08:28)
[2018-12-15] MEDS ORDERED: ALPRAZolam 0.5 MG TAB PO ONE (08:30)
[2018-12-15] MEDS ORDERED: diphenhydrAMINE 50 MG/ML VIAL IVP ONE (08:30)
[2018-12-15] MEDS ORDERED: MORPHINE SULFATE 4 MG/ML SYR IVP ONE (08:30)
[2018-12-15] MEDS ORDERED: GLYCOPYRROLATE 0.2 MG/ML VIAL IV ONE (08:30)
[2018-12-15 08:56] LABS: BASOPHILS % (AUTO) 0.3 % (0.0-2.0); EOSINOPHILS # (AUTO) 0.1 K/uL (0-0.4); EOSINOPHILS % (AUTO) 1.3 % (0.0-4.0); HEMATOCRIT 31.9 % (36-48); HEMOGLOBIN 10.3 g/dL (12.0-16.0); LYMPHOCYTES # (AUTO) 2.1 K/uL (2.5-16.5); MEAN CORPUSCULAR HEMOGLOBIN 26 pg (27-31); MEAN CORPUSCULAR HGB CONC 32 g/dL (33-37); MEAN CORPUSCULAR VOLUME 81.6 fL (80-94); MONOCYTES # (AUTO) 0.2 K/uL (0.8-1.0); NEUTROPHILS # (AUTO) 3.8 K/uL (1.8-7.7); NEUTROPHILS % (AUTO) 61.4 % (42.2-75.2); PLATELET COUNT (AUTO) 306 K/uL (140-450); RED BLOOD CELL COUNT(AUTO) 3.91 MIL/uL (4.20-5.40); RED CELL DISTRIBUTION WIDTH 23.1 % (11.6-13.7); WHITE BLOOD COUNT (AUTO) 6.2 K/uL (4.8-10.8)
[2018-12-15 08:59] LABS: APPEARANCE,URINE CLEAR (CLEAR); BILIRUBIN,URINE NEGATIVE (NEGATIVE); BLOOD, URINE NEGATIVE (NEGATIVE); COLOR,URINE YELLOW (YELLOW); LEUKOCYTE ESTERASE ,URINE NEGATIVE (NEGATIVE); NITRITE, URINE NEGATIVE (NEGATIVE); PH,URINE 6.5 (5.0-9.0); UGLUCOSE NEGATIVE (NEGATIVE)
--- NOTE | 2018-12-15 09:10 | NUR ---
pt taken to ct via kapil
[2018-12-15 09:12] LABS: CALCIUM OXALATE CRYSTALS,UR 0-10 /HPF (None Seen); RBC,URINE 0-5 /HPF (0-5); WBC,URINE 0-5 /HPF (0-5)
--- NOTE | 2018-12-15 09:21 | NUR ---
pt returned from ct
--- NOTE | 2018-12-15 09:21 | NUR ---
medial port r side of chest accessed. 20 gauge inserted.
[2018-12-15 09:27] LABS: ANION GAP 13.2 (8-16); CARBON DIOXIDE 23.1 mmol/L (21-32); POTASSIUM 3.3 mmol/L (3.5-5.1)
[2018-12-15 09:32] LABS: ALBUMIN 2.9 g/dL (3.4-5.0)
--- NOTE | 2018-12-15 09:33 | NUR ---
pt given another blanket. lights turned off for pt comfort.
--- NOTE | 2018-12-15 09:51 | NUR ---
pt resting comfortably in bed, bedside.
[2018-12-15 09:56] LABS: TOTAL BILIRUBIN 0.3 mg/dL (0.0-1.0)
[2018-12-15] MEDS ORDERED: POTASSIUM CHLORIDE 10 MEQ TABER PO ONE (10:20)
[2018-12-15] MEDS ORDERED: METOCLOPRAMIDE 10 MG TAB PO ONE (10:45)
[2018-12-15] MEDS ORDERED: LACTULOSE 20 GM/30 ML UDC PO ONE (10:45)
[2018-12-15] MEDS ORDERED: CIPR500T4 PO (11:17)
--- NOTE | 2018-12-15 11:17 | NUR ---
PT STARTED CHEMO ON TUESDAY, CANT RECALL NAME. STATES SHE HAS ANOTHER TREATMENT IS DUE IN 2 WEEKS.
[2018-12-15 11:40] VITALS: BP 118/79
--- NOTE | 2018-12-15 11:40 | NUR ---
Patient will be admitted to [facility]. Adm[facility]. Will go to room 115. Belongings list completed. Report to FARAZ MCCLURE. NS RUNNING AT 100MLS/HR AT TIME OF TRANSFER. 900 ML STILL TO ADMINISTER.
--- NOTE | 2018-12-15 11:40 | NUR ---
RECEIVED BEDSIDE REPORT FROM [employer] RAJAN. PT STABLE, AWAKE, ALERT AND ORIENTED X4. PT C/O OF 10/10 FLANK PAIN, PT ALREADY RECEIVED PRN MORPHINE IN THE ER. PT DENIES SOB. PT HAS A MEDIAL PORTACATH, NO REDNESS, SWELLING, OR INFLAMMATION NOTED ON SITE. CALL LUZ WITHIN REACH. BED IN LOWEST POSITION. SAFETY MEASURES IN PLACE. PLAN OF CARE REVIEWED.
--- NOTE | 2018-12-15 12:20 | NUR ---
PAGED DR MCCLELLAN.
--- NOTE | 2018-12-15 12:24 | NUR ---
SPOKE WITH DR MCCLELLAN REGARDING PLAN OF CARE. PER DR MCCLELLAN, HE WILL PUT NEW ORDERS IN.
[2018-12-15] MEDS ORDERED: diphenhydrAMINE 50 MG/ML VIAL IVP PRN (12:30)
[2018-12-15] MEDS ORDERED: cloNIDine 0.1 MG TAB PO PRN (12:30)
[2018-12-15] MEDS ORDERED: ACETAMINOPHEN 325 MG TAB PO PRN (12:30)
[2018-12-15] MEDS ORDERED: SODIUM PHOSPHATE 118 ML ENEM RC PRN (12:30)
[2018-12-15] MEDS ORDERED: ALBUTEROL 0.083% 2.5 MG/3 ML NEBU INH PRN (12:30)
[2018-12-15] MEDS ORDERED: IPRATROPIUM 0.02% 0.5 MG/2.5 ML NEBU INH PRN (12:30)
[2018-12-15] MEDS ORDERED: DOCUSATE SODIUM 250 MG GELCAP PO PRN (12:30)
[2018-12-15] MEDS ORDERED: guaiFENesin DM 200/20 MG-10 ML 10 ML UDC PO PRN (12:30)
[2018-12-15] MEDS ORDERED: POTASSIUM CHLORIDE 40 MEQ, LIDOCAINE 1% 25 MG in NACL 0.9% 250 ML IV PRN (12:30)
[2018-12-15] MEDS ORDERED: MAGNESIUM OXIDE 400 MG TAB PO PRN (12:30)
[2018-12-15] MEDS ORDERED: ACETAMINOPHEN 650 MG SUPP RC PRN (12:30)
[2018-12-15] MEDS ORDERED: MAG SULF 2000 MG/WATER PREMIX 50 ML IV PRN (12:30)
[2018-12-15] MEDS ORDERED: POTASSIUM CHLORIDE 10 MEQ TABER PO PRN (12:30)
[2018-12-15] MEDS ORDERED: HYDROcodone/APAP 5/325 MG 1 TAB TAB PO PRN ×2 (12:30)
[2018-12-15] MEDS ORDERED: BISACODYL 10 MG SUPP RC PRN (12:30)
[2018-12-15] MEDS ORDERED: SODIUM PHOSPHATE 118 ML ENEM RC SCH (13:00)
[2018-12-15] MEDS ORDERED: LACTULOSE 20 GM/30 ML UDC PO SCH (13:00)
[2018-12-15] MEDS: MORPHINE SULFATE 2 MG/ML SYR IVP PRN ×3 (13:07→20:01)
--- NOTE | 2018-12-15 13:08 | NUR ---
ADMINISTERED SCHEDULED MEDICATIONS AND PRN MORPHINE FOR 10/10 FLANK PAIN. PT TOLERATED WELL. WILL CONTINUE TO MONITOR.
[2018-12-15] MEDS: NACL 0.9% 1,000 ML IV SCH (13:55)
--- NOTE | 2018-12-15 15:51 | NUR ---
PHOTOGRAPH TAKEN OF PT'S HYSTERECTOMY INCISION.
[2018-12-15 16:00] VITALS: BP 115/86
--- NOTE | 2018-12-15 16:47 | NUR ---
VITAL SIGNS TAKEN, PT STABLE. ADMINISTERED PRN MORPHINE FOR 10/10 ABDOMINAL PAIN. PT TOLERATED WELL. WILL CONTINUE TO MONITOR.
[2018-12-15] MEDS: ONDANSETRON 4 MG/2 ML VIAL IVP PRN (18:52)
--- NOTE | 2018-12-15 18:55 | NUR ---
ADMINISTERED PRN ZOFRAN FOR PT C/O NAUSEA. PT TOLERATED WELL. WILL CONTINUE TO MONITOR.
--- NOTE | 2018-12-15 19:25 | NUR ---
ENDORSED PT TO RN SUMMER FOR CONTINUITY OF CARE. PT STABLE.
--- NOTE | 2018-12-15 19:30 | NUR ---
RECEIVED BEDSIDE REPORT FROM DAY SHIFT RN, PATIENT IN BED, ON RA C/O SEVERE ABDOMINAL PAIN, WANTS MORPHINE, V/S STABLE. LEFT MAYO CATH IN PLACE, PATIENT HAS CHEMO THERAPY 2 DAYS AGO ACCORDING TO DAY SHIFT NURSE. NOTED ABDOMINAL INCISION, DRESSING IN TACT. EXPLAINED PLAN OF CARE WILL CONTINUE TO MONITOR
--- NOTE | 2018-12-15 20:00 | NUR ---
PATIENT C/O PAIN WILL GIVE MORPHINE. PATIENT C/O NOT BEING ABLE TO SLEEP WILL GIVE AMBIEN.
[2018-12-15] MEDS: DOCUSATE SODIUM 250 MG GELCAP PO SCH (20:01)
[2018-12-15] MEDS: ZOLPIDEM 5 MG TAB PO PRN (20:02)
[2018-12-15] MEDS: CIPROFLOXACIN 250 MG TAB PO SCH (20:02)
[2018-12-15] MEDS: QUEtiapine FUMARATE 100 MG TAB PO SCH (20:02)
[2018-12-15] MEDS: SERTRALINE 50 MG TAB PO SCH (20:02)
--- NOTE | 2018-12-15 20:45 | NUR ---
PATIENT SLEEPING IN BED WILL CONTINUE TO MONITOR
--- NOTE | 2018-12-15 23:05 | NUR ---
ENDORSED PATIENT TO SWITCH HOUSE OPERATOR NURSE FABRIZIO FOR CONTINUITY OF CARE, PATIENT STABLE
[2018-12-16] VITALS: BP 116/80
[2018-12-16] MEDS: ALUMINUM HYD/MAG/SIMETHICONE 30 ML UDC PO PRN ×2 (00:36→08:35)
[2018-12-16] MEDS: MORPHINE SULFATE 2 MG/ML SYR IVP PRN ×7 (00:37→21:28)
--- NOTE | 2018-12-16 00:45 | NUR ---
PT IN BED GIVEN MORPHINE PRN/IVP FOR 8/10 IN ABDOMEN. PT ALSO GIVEN MAALOX FOR C/O OF GERD. V/S FOLLOWS T 98.1 P 76 R 18 B/P 116/80 02 97% ON ROOM AIR. N/S RUNNING AT 70MLS/ VIA MAYO CATH. WILL MONITOR FOR PAIN RELIEF.
--- NOTE | 2018-12-16 04:00 | NUR ---
PT AGAIN C/O OF 8/10 PAIN IN MID AND LOWER ABDOMEN. PT GIVEN MORPHINE IVP/PRN FOR PAIN, PORT A CATH FLUSHED PATENT. DRESSING TO LOWER ABD INTACT WITH NO DRAINAGE OR ODOR NOTED.
[2018-12-16] MEDS: NACL 0.9% 1,000 ML IV SCH ×2 (04:13→11:17)
--- NOTE | 2018-12-16 06:55 | NUR ---
PT SAID SHE HAD A VERY SMALL BM. PT GIVEN PRN SUPPOSITORY TO ASSIST WITH HAVING A BOWEL MOVEMENT.
--- NOTE | 2018-12-16 07:15 | NUR ---
ENDORSED TO AM SHIFT AT BEDSIDE, PT IN STABLE CONDITION.
--- NOTE | 2018-12-16 07:16 | NUR ---
RECEIVED ENDORSEMENT FROM FARMER AND GRAZIER NURSE. PATIENT IS AAOX4, [place]ER SPEAKING. RESPIRATIONS ARE EVEN AND UNLABORED ON ROOM AIR. PATIENT DENIES ANY PAIN AT THIS TIME. RIGHT UPPER PORT-A-CATH INTACT, PATENT, AND INFUSING IVF. PLAN OF CARE WAS REVIEWED WITH PATIENT. PATIENT VERBALIZED UNDERSTANDING. SAFETY MEASURES IN PLACE, CALL LIGHT WITHIN REACH.
[2018-12-16 08:00] VITALS: BP 117/69
[2018-12-16] MEDS: SERTRALINE 50 MG TAB PO SCH ×2 (08:07→20:48)
[2018-12-16] MEDS: CIPROFLOXACIN 250 MG TAB PO SCH ×2 (08:07→20:49)
[2018-12-16] MEDS: DOCUSATE SODIUM 250 MG GELCAP PO SCH ×2 (08:07→20:48)
[2018-12-16] MEDS: FAMOTIDINE 20 MG TAB PO SCH (08:07)
[2018-12-16] MEDS: QUEtiapine FUMARATE 100 MG TAB PO SCH ×2 (08:08→21:09)
[2018-12-16] MEDS: ONDANSETRON 4 MG/2 ML VIAL IVP PRN (08:24)
--- NOTE | 2018-12-16 08:30 | NUR ---
ADMINISTERED SCHEDULED MEDICATIONS. PATIENT C/O 04/12 TO THE ABDOMINAL ARE. MEDICATED WITH PRN MORPHINE IVP. PATIENT ALSO C/O NAUSEA, ADMINISTERED PRN ZOFRAN IVP WELL MAALOX PO. WILL CONTINUE TO MONITOR.
[2018-12-16] MEDS ORDERED: NON-FORMULARY ITEM (Ranitidine HCl (Zantac) 150 MG) PO SCH (09:00)
--- NOTE | 2018-12-16 09:46 | NUR ---
PATIENT RESTING IN BED. STATES THAT HER SHE IS NO LONGER IN PAIN AT THIS TIME. NO OTHER NEEDS AT THIS TIME.
[2018-12-16] MEDS: LORazepam 2 MG/ML VIAL IVP PRN ×2 (11:23→17:10)
--- NOTE | 2018-12-16 11:36 | NUR ---
PATIENT C/O 8/10 PAIN TO ABDOMINAL AREA. ADMINISTERED MORPHINE PRN IVP. UPON ARRIVAL TO PATIENT'S ROOM, PATIENT WAS FOUND CRYING. WHEN ASKED WHAT WAS WRONG, PATIENT STATED THAT SHE DID NOT UNDERSTAND WHAT WAS GOING ON WITH HER AND WHY SHE WAS FEELING LIKE THIS. EDUCATED PATIENT ON COMMON SIDE EFFECT OF CHEMOTHERAPY. PATIENT VERBALIZED UNDERSTANDING. PATIENT STATED NOT HAVING A SUPPORT SYSTEM. SHE REQUESTED INFORMATION ON SUPPORT GROUPS. WILL PROVIDE RESOURCES TO PATIENT.
--- NOTE | 2018-12-16 13:10 | NUR ---
PATIENT RESTING IN BED. DENIES PAIN AT THIS TIME. NO OTHER NEEDS AT THIS TIME.
[2018-12-16] MEDS: LACTULOSE 20 GM/30 ML UDC PO PRN (14:55)
[2018-12-16] MEDS ORDERED: LACTOBACILLUS RHAMNOSUS GG 1 EACH CAP PO SCH (15:00)
--- NOTE | 2018-12-16 15:20 | NUR ---
ADMINISTERED SCHEDULED MEDICATIONS. ADMINISTERED PAIN MEDICATION PRN. NO OTHER NEEDS AT THIS TIME. Addendum: 12/16/18 at 1631 by Leelee Cohen RN PATIENT REPORTS HAVING A HARD TIME EATING. SHE IS ONLY ABLE TO TOLERATE A LITTLE WITHOUT FEELING SICK.
[2018-12-16 16:00] VITALS: BP 103/72
--- NOTE | 2018-12-16 17:15 | NUR ---
ADMINISTERED ATIVAN PRN IVP FOR ANXIETY. PATIENT IS RESTING IN BED. NO OTHER NEEDS AT THIS TIME.
--- NOTE | 2018-12-16 19:16 | NUR ---
RECIEVED PT AAOX4 , NOT IN DISTRESS ,V/W WNL , IV SITE ( PORT A CATH ON SUBCLAVIAN VEIN ) INTACT AND PATENT , WITH ABDOMINAL SURGICAL DRESSING DRY AND INTACT ( POST HYSTERECTOMY DONE AT [facility] LAST OCTOBER ).PLAN OF CARE DISCUSSED AND VERBALIZE UNDERSTANDING, CALL LIGHT WITHIN REACH .
--- NOTE | 2018-12-16 19:16 | NUR ---
ENDORSED TO STAFF OCCUPATIONAL THERAPIST NURSE FOR CONTINUITY OF CARE. PATIENT IS STABLE AT THIS TIME.
--- NOTE | 2018-12-16 20:48 | NUR ---
COMPLAINING OF PAIN ON ABDOMEN , DRESSING INTACT AND DRY , V/S WNL , TYLENOL TAB GIVEN P.O ORDERED , WILL CONTINUE TO MONITOR ,CALL LIGHT WITHIN REACH .
[2018-12-16] MEDS: ZOLPIDEM 5 MG TAB PO PRN (21:09)
--- NOTE | 2018-12-16 21:28 | NUR ---
STILL COMPLAINING OF PAIN ON ABDOMEN , ABDOMINAL SURGICAL DRESSING INTACT AND DRY , MORPHINE SO4 TIV GIVEN ORDERED. WILL CONTINUE TO MONITOR , CALL LIGHT WITHIN REACH .
[2018-12-17] VITALS: BP 114/56
--- NOTE | 2018-12-17 | NUR ---
MADE ROUNDS , V/S WNL , IVF INFUSING WELL , BED IN LOW POSITION ,SIDERAILS UP X2 ,CALL LIGHT WITHIN REACH .
[2018-12-17] MEDS: MORPHINE SULFATE 2 MG/ML SYR IVP PRN ×4 (00:30→11:02)
--- NOTE | 2018-12-17 00:30 | NUR ---
COMPLAINING OF PAIN ON ABDOMEN , SURGICAL DRESSING DRY AND INTACT , MORPHINE SO4 TIV GIVEN ORDERED Addendum: 12/17/18 at 0209 by Medina Reza RN WILL CONTINUE TO MONITOR , BED IN LOW POSITION ,SIDERAILS UP X2 , CALL LIGHT WITHIN REACH ,WILL CONTINUE TO MONITOR.
[2018-12-17] MEDS: NACL 0.9% 1,000 ML IV SCH (01:13)
--- NOTE | 2018-12-17 02:00 | NUR ---
MADE ROUNDS , PT RESTING ON BED , NO FURTHER COMPLAIN MADE AT THIS TIME ,CALL LIGHT IS WITHIN REACH.
--- NOTE | 2018-12-17 04:00 | NUR ---
V/S TAKEN WNL , NO FURTHER COMPLAIN MADE AT THIS TIME , CALL LIGHT WITHIN REACH .
--- NOTE | 2018-12-17 06:00 | NUR ---
MADE ROUNDS , PT, SLEEPING ON BED.
--- NOTE | 2018-12-17 06:33 | NUR ---
PATIENT HAS BEEN SCREENED AND CATEGORIZED LOW NUTRITION RISK. PATIENT WILL BE SEEN WITHIN 7 DAYS OF ADMISSION. 12/22/18 DELMAR WEBBER MS, RDN
--- NOTE | 2018-12-17 07:10 | NUR ---
ENDORSED TO AM SHIFT NURSE FOR CONTINUITY OF CARE.
--- NOTE | 2018-12-17 07:11 | NUR ---
Received report from pm nurse Medina. Pt awake, no signs of distress. Call light within reach.
[2018-12-17 08:00] VITALS: BP 120/79
[2018-12-17] MEDS: QUEtiapine FUMARATE 100 MG TAB PO SCH (08:00)
[2018-12-17] MEDS: DOCUSATE SODIUM 250 MG GELCAP PO SCH (08:00)
[2018-12-17] MEDS: CIPROFLOXACIN 250 MG TAB PO SCH (08:00)
[2018-12-17] MEDS: FAMOTIDINE 20 MG TAB PO SCH (08:01)
[2018-12-17] MEDS: SERTRALINE 50 MG TAB PO SCH (08:01)
[2018-12-17] MEDS ORDERED: LACTOBACILLUS RHAMNOSUS GG 1 EACH CAP PO SCH (09:00)
[2018-12-17] MEDS: LACTULOSE 20 GM/30 ML UDC PO PRN (09:55)
--- NOTE | 2018-12-17 09:55 | NUR ---
Pt states she had small soft BM few minutes ago. Denies any feeling of bloating/fullness to abd, but requests for laxative to "completely empty bowels." Lactulose administered. Pt encouraged to amb & drink fluids, verbalized understanding & agree with plan of care. No signs of distress at this time. Call light within reach.
[2018-12-17] MEDS: ONDANSETRON 4 MG/2 ML VIAL IVP PRN (11:01)
--- NOTE | 2018-12-17 11:01 | NUR ---
Pt c/o slight nausea. No vomiting. Zofran given. Ice chips provided for comfort. Call light within reach. Right subclavian mediport access intact & asymptomatic with ongoing NS @ 70ml/hr.
--- NOTE | 2018-12-17 12:01 | NUR ---
No c/o nausea at this time. Pt's mother & father at bedside visiting. Pt interacting appropriately.
[2018-12-17] MEDS ORDERED: LACT10SO11 PO (13:10)
--- NOTE | 2018-12-17 14:00 | NUR ---
Written & verbal discharge instructions provided. Pt verbalized understanding & agree with bowel regimen & f/u with PCP & oncologist. Right subclavian mediport access discontinued. No bleeding noted.
--- NOTE | 2018-12-17 14:25 | NUR ---
Pt discharged home at this time. Left unit via wheelchair, accompanied by spouse. No signs of distress, denies any pain. All belongings with pt upon departure.
--- NOTE | 2018-12-18 07:48 | NUR ---
WOUND CARE CONSULT NOT DONE, PT. DISCHARGED.
== END 2018-12-17 14:25 | disposition home or self-care (01) | DRG 247 ==
LOC: MED 07:30 → MTU 11:12
PROVIDERS: ADMIT Internal Medicine Pulmonary Disease; ATTEND Internal Medicine Pulmonary Disease
DX: K56.41 Fecal impaction (principal); E44.1 Mild protein-calorie malnutrition; E86.0 Dehydration; F32.9 Major depressive disorder, single episode, unspecified; Z88.2 Allergy status to sulfonamides; F41.9 Anxiety disorder, unspecified; N20.0 Calculus of kidney; Z85.43 Personal history of malignant neoplasm of ovary; Z88.8 Allergy status to other drugs, medicaments and biological substances; Z82.49 Family history of ischemic heart disease and other diseases of the circulatory system; Z90.710 Acquired absence of both cervix and uterus; Z92.21 Personal history of antineoplastic chemotherapy
CPT/HCPCS: 36415; 80053; 81001; 82150; 83690; 85025; 87081; 96361; 96374; 96375; 99285; J1200; J2060; J2270; J2405; J3490; J7030; J8597

== ENCOUNTER 2019-01-04 09:57 | Emergency (ER) | payer OTHER ==
[~2019-01-04] VITALS: Ht 167.6 cm; Wt 59.0 kg
[~2019-01-04 09:57] MED LIST changes: +CIPR500T4 PO; -DOXY100C9 PO; +LACT10SO11 PO; -METR-435 PO
--- NOTE | 2019-01-04 10:02 | NUR ---
PT TO ER BED 6
[2019-01-04 10:07] VITALS: BP 133/55
--- NOTE | 2019-01-04 10:15 | NUR ---
PT C/O ABD PAIN, NAUSEA, NO SLEEP, DECREASED APPETITE SINCE CHEMO ON TUESDAY, CHRONIC CONSTIPATION AND DEPRESSION. PT HAS SURGICAL WOUND TO LOWER ABD THAT HAS NOT HEALED, W/ DRAINAGE. PT DENIES ANY FEVER, CP, SOB, OR COUGH AT THIS TIME; PATIENT STATES PAIN OF 0/10 AT THIS TIME; VSS; PATIENT POSITIONED FOR COMFORT; HOB ELEVATED; BEDRAILS UP X1; BED DOWN. ER MD MADE AWARE OF PT STATUS.
[2019-01-04] MEDS ORDERED: diphenhydrAMINE 50 MG/ML VIAL IM ONE (10:45)
[2019-01-04] MEDS ORDERED: MORPHINE SULFATE 4 MG/ML SYR IM ONE (10:45)
[2019-01-04] MEDS ORDERED: LORazepam 1 MG TAB PO ONE (11:00)
--- NOTE | 2019-01-04 11:51 | NUR ---
PT STATES SHE HAS MORE PAIN. DR. JOSEPH NOTIFIED.
--- NOTE | 2019-01-04 12:54 | NUR ---
Patient discharged with v/s stable. Written and verbal after care instructions given and explained. Patient alert, oriented and verbalized understanding of instructions. Wheel Chair Assisted with to car. All questions addressed prior to discharge. ID band removed. Patient advised to follow up with PMD. Rx of TRAMADOL,XANAX given. Patient educated on indication of medication including possible reaction and side effects. Opportunity to ask questions provided and answered.
[2019-01-04 12:55] VITALS: BP 140/83
== END 2019-01-04 12:54 | disposition home or self-care (01) ==
LOC: MED 09:57
DX: C56.9 Malignant neoplasm of unspecified ovary (principal); F32.9 Major depressive disorder, single episode, unspecified; G47.00 Insomnia, unspecified; Z51.11 Encounter for antineoplastic chemotherapy; Z85.43 Personal history of malignant neoplasm of ovary; Z88.2 Allergy status to sulfonamides; Z88.8 Allergy status to other drugs, medicaments and biological substances; Z79.899 Other long term (current) drug therapy; Z88.5 Allergy status to narcotic agent
CPT/HCPCS: 96372; 99283; J1200; J2270

== ENCOUNTER 2019-07-01 12:21 | Emergency (ER) | payer MEDICAID, OTHER ==
[~2019-07-01] VITALS: Ht 162.6 cm; Wt 68.0 kg
[2019-07-01 12:24] VITALS: BP 153/79
--- NOTE | 2019-07-01 12:36 | NUR ---
WAIT AT LOBBY.
--- NOTE | 2019-07-01 13:27 | NUR ---
URINE SPECIMEN SENT TO LAB.
--- NOTE | 2019-07-01 13:29 | NUR ---
PATIENT AMBULATED TO BED 1.
[2019-07-01] MEDS ORDERED: NACL 0.9% 1,000 ML IV SCH (14:03)
[2019-07-01] MEDS ORDERED: NACL 0.9% 1,000 ML IV ONE (14:03)
[2019-07-01] MEDS ORDERED: ONDANSETRON 4 MG/2 ML VIAL IVP ONE (14:05)
[2019-07-01] MEDS ORDERED: PROMETHAZINE 25 MG/ML VIAL IM ONE (14:05)
[2019-07-01] MEDS ORDERED: GLYCOPYRROLATE 0.2 MG/ML VIAL IV ONE (14:05)
[2019-07-01] MEDS ORDERED: MORPHINE SULFATE 4 MG/ML SYR IVP ONE ×2 (14:05→15:45)
[2019-07-01 15:01] LABS: BASOPHILS % (AUTO) 0.3 % (0.0-2.0); EOSINOPHILS # (AUTO) 0.1 K/uL (0-0.4); EOSINOPHILS % (AUTO) 1.2 % (0.0-4.0); LYMPHOCYTES # (AUTO) 1.3 K/uL (2.5-16.5); LYMPHOCYTES % (AUTO) 29.8 % (20.5-51.1); MEAN CORPUSCULAR HEMOGLOBIN 35 pg (27-31); MEAN CORPUSCULAR HGB CONC 33 g/dL (33-37); MEAN CORPUSCULAR VOLUME 103.7 fL (80-94); MONOCYTES # (AUTO) 0.4 K/uL (0.8-1.0); MONOCYTES % (AUTO) 8.9 % (1.7-9.3); NEUTROPHILS # (AUTO) 2.6 K/uL (1.8-7.7); NEUTROPHILS % (AUTO) 59.8 % (42.2-75.2); PLATELET COUNT (AUTO) 119 K/uL (140-450); RED BLOOD CELL COUNT(AUTO) 3.18 MIL/uL (4.20-5.40); WHITE BLOOD COUNT (AUTO) 4.3 K/uL (4.8-10.8)
[2019-07-01 15:41] LABS: ALBUMIN 3.3 g/dL (3.4-5.0); ANION GAP 13.2 (8-16); CARBON DIOXIDE 25.8 mmol/L (21-32); TOTAL BILIRUBIN 0.2 mg/dL (0.0-1.0)
--- NOTE | 2019-07-01 15:57 | NUR ---
PT KEPT TO CO PAIN. MORPHINE 4MG GIVEN IVP ONE MORE TIMES.
[2019-07-01 17:14] VITALS: BP 134/75
[2019-07-02 20:37] LABS: MAGNESIUM 1.6 mg/dL (1.8-2.4)
[2019-07-02 21:46] LABS: URIC ACID 5.7 mg/dL (2.6-7.2)
--- NOTE | 2019-07-10 09:08 | NUR ---
Late entry. Confirmed with RN that Heparin IV was given at 1649 and completed at 1650
== END 2019-07-01 16:23 | disposition home or self-care (01) ==
LOC: MED 12:21
DX: R10.30 Lower abdominal pain, unspecified (principal); N20.0 Calculus of kidney; F11.10 Opioid abuse, uncomplicated; Z85.9 Personal history of malignant neoplasm, unspecified; Z87.448 Personal history of other diseases of urinary system; Z90.49 Acquired absence of other specified parts of digestive tract; Z79.899 Other long term (current) drug therapy; Z88.2 Allergy status to sulfonamides; Z88.8 Allergy status to other drugs, medicaments and biological substances
CPT/HCPCS: 36415; 74176; 80053; 81002; 82150; 83690; 83735; 84550; 85025; 96372; 96374; 96375; 96376; 99284; J1642; J2270; J2405; J2550; J3490; J7030

== ENCOUNTER 2019-07-19 05:17 | Emergency (ER) | payer MEDICAID ==
[~2019-07-19] VITALS: Ht 162.6 cm; Wt 65.8 kg
[2019-07-19 05:20] VITALS: BP 132/90
--- NOTE | 2019-07-19 05:20 | NUR ---
to bed # 12 ambulatory
--- NOTE | 2019-07-19 05:58 | NUR ---
PT ASSESSMENT COMPLETE. PT SEATED UPRIGHT IN BED. WILL CONTINUE TO MONITOR.
[2019-07-19] MEDS ORDERED: NACL 0.9% 1,000 ML IV ONE (06:17)
[2019-07-19] MEDS ORDERED: MORPHINE SULFATE 4 MG/ML SYR IVP ONE ×2 (06:20→07:30)
[2019-07-19] MEDS ORDERED: ONDANSETRON 4 MG/2 ML VIAL IVP ONE (06:20)
[2019-07-19 06:53] LABS: APPEARANCE,URINE HAZY (CLEAR); BILIRUBIN,URINE NEGATIVE (NEGATIVE); BLOOD, URINE 3+ (NEGATIVE); COLOR,URINE RED (YELLOW); LEUKOCYTE ESTERASE ,URINE TRACE (NEGATIVE); NITRITE, URINE POSITIVE (NEGATIVE); UGLUCOSE NEGATIVE (NEGATIVE)
--- NOTE | 2019-07-19 06:55 | NUR ---
PT REPORTS UNCHANGED PAIN S/P MORPHINE ADMINISTRATION. ERMD NOTIFIED.
[2019-07-19 07:12] LABS: BASOPHILS % (AUTO) 0.2 % (0.0-2.0); EOSINOPHILS % (AUTO) 1.3 % (0.0-4.0); LYMPHOCYTES # (AUTO) 1.6 K/uL (2.5-16.5); LYMPHOCYTES % (AUTO) 49.5 % (20.5-51.1); MEAN CORPUSCULAR HEMOGLOBIN 34 pg (27-31); MEAN CORPUSCULAR HGB CONC 34 g/dL (33-37); MEAN CORPUSCULAR VOLUME 101.4 fL (80-94); MONOCYTES # (AUTO) 0.5 K/uL (0.8-1.0); MONOCYTES % (AUTO) 13.9 % (1.7-9.3); NEUTROPHILS # (AUTO) 1.1 K/uL (1.8-7.7); NEUTROPHILS % (AUTO) 35.1 % (42.2-75.2); PLATELET COUNT (AUTO) 40 K/uL (140-450); RED BLOOD CELL COUNT(AUTO) 2.96 MIL/uL (4.20-5.40); RED CELL DISTRIBUTION WIDTH 13.3 % (11.6-13.7); WHITE BLOOD COUNT (AUTO) 3.3 K/uL (4.8-10.8)
[2019-07-19 07:13] LABS: POTASSIUM 3.9 mmol/L (3.5-5.1)
[2019-07-19 07:14] LABS: ANION GAP 0.3 (8-16); CARBON DIOXIDE 25.6 mmol/L (21-32); TOTAL BILIRUBIN 0.3 mg/dL (0.0-1.0)
[2019-07-19 07:15] LABS: ALBUMIN 3.3 g/dL (3.4-5.0)
--- NOTE | 2019-07-19 07:16 | NUR ---
BEDSIDE REPORT GIVEN TO KAMI ARAUJO. TRANSFER OF CARE AT THIS TIME.
[2019-07-19 07:19] LABS: RBC,URINE 11-20 (MOD) /HPF (0-5)
--- NOTE | 2019-07-19 08:00 | NUR ---
REPORT RECEIVED FROM JS MCCLURE. PATIENT IS RESTING AT BESIDE. PAIN RATED 8/10. PAIN MEDICATION ADMINISTERED.
--- NOTE | 2019-07-19 08:50 | NUR ---
PATIENTS PAIN IS UNRELIEVED BY PRIOR MEDICATION ADMIN. ERMD NOTIFIED.
--- NOTE | 2019-07-19 09:21 | NUR ---
Patient discharged with v/s stable. Written and verbal after care instructions given and explained. Patient verbalized understanding. Ambulatory with steady gait. All questions addressed prior to discharge. Advised to follow up with PMD. INFORMED PT OF [place] INFORMATION, PT VERBALIZED UNDERSTANDING.
[2019-07-19 09:22] VITALS: BP 125/83
== END 2019-07-19 09:21 | disposition home or self-care (01) ==
LOC: MED 05:17
DX: R10.9 Unspecified abdominal pain (principal); Z85.9 Personal history of malignant neoplasm, unspecified; Z87.448 Personal history of other diseases of urinary system; Z88.2 Allergy status to sulfonamides; Z79.899 Other long term (current) drug therapy
CPT/HCPCS: 36415; 80053; 81001; 81025; 85025; 87086; 96374; 96375; 96376; 99283; J2270; J2405; J7030

== ENCOUNTER 2019-12-01 23:39 | Emergency (ER) | payer MEDICAID ==
[~2019-12-01] VITALS: Ht 162.6 cm; Wt 70.3 kg
[~2019-12-01 23:39] MED LIST changes: +CETI-120 PO; -CETI-32 PO
[2019-12-01 23:42] VITALS: BP 129/89
--- NOTE | 2019-12-01 23:47 | NUR ---
PT AMBULATED TO [facility] WITH STEADY GAIT.
--- NOTE | 2019-12-01 23:54 | NUR ---
Dr. Cox examining patient.
[2019-12-02] MEDS ORDERED: ONDANSETRON 4 MG/2 ML VIAL IVP ONE
--- NOTE | 2019-12-02 00:15 | NUR ---
PT HAS HX OF LOWER BACK PAIN WITH SCIATICA, USUALLY TAKES NORCO BUT RAN OUT OF MEDS, PAIN MANAGEMENT DOCTOR HAS BEEN CLOSED. HAS HAD 10/10 PAIN X 1 DAY. WAS ABLE TO WALK WITH STEADY GAIT TO [facility]. ALLERGIES : SULFA, TORADOL MED HX - DEPRESSION, PTSD
[2019-12-02] MEDS ORDERED: MORPHINE SULFATE 4 MG/ML SYR IVP ONE ×2 (00:35)
--- NOTE | 2019-12-02 01:15 | NUR ---
Patient discharged with v/s stable. Written and verbal after care instructions given and explained. Patient alert, oriented and verbalized understanding of instructions. Ambulatory with steady gait. All questions addressed prior to discharge. ID band removed. Patient advised to follow up with PMD. Rx of NEURONTIN given. Patient educated on indication of medication including possible reaction and side effects. Opportunity to ask questions provided and answered.
[2019-12-02 02:21] VITALS: BP 129/89
== END 2019-12-02 01:15 | disposition home or self-care (01) ==
LOC: MED 23:39
DX: M54.32 Sciatica, left side (principal); N28.9 Disorder of kidney and ureter, unspecified; Z85.79 Personal history of other malignant neoplasms of lymphoid, hematopoietic and related tissues; Z88.6 Allergy status to analgesic agent; Z88.2 Allergy status to sulfonamides; Z79.899 Other long term (current) drug therapy
CPT/HCPCS: 96374; 96375; 96376; 99284; J1644; J2270; J2405

== ENCOUNTER 2019-12-03 05:58 | Emergency (ER) | payer MEDICAID ==
[~2019-12-03] VITALS: Ht 162.6 cm; Wt 70.3 kg
[2019-12-03 06:19] VITALS: BP 131/81
--- NOTE | 2019-12-03 06:21 | NUR ---
PT AMBULATED TO BED 12 WITH STEADY GAIT.
--- NOTE | 2019-12-03 06:27 | NUR ---
Dr. Cox examining patient.
[2019-12-03] MEDS ORDERED: MORPHINE SULFATE 4 MG/ML SYR IVP ONE ×2 (06:30→07:35)
[2019-12-03] MEDS ORDERED: ONDANSETRON 4 MG/2 ML VIAL IVP ONE (06:30)
--- NOTE | 2019-12-03 06:30 | NUR ---
54F C/O PAINFUL URINATION AND LLE PAIN, 10/10 PAIN. STATES URINARY URGENCY, FOUL ODOR OBSERVED UPON URINE SAMPLE COLLECTION. DENIES HEMATURIA. RESPIRATIONS EVEN AND UNLABORED. NEURO WNL. DENIES N/V/D. PMHX: OVARIAN CANCER, MEDULLARY SPONGE KIDNEY ALLX: SULFA, FENTANYL NEGATIVE FOR COVID SCREENING.
--- NOTE | 2019-12-03 07:00 | NUR ---
PT MEDICATED WITH ZOFRAN AND MORPHINE VIA RT PORTACATH. TOLERATED WELL. NADR
--- NOTE | 2019-12-03 07:00 | NUR ---
ACCESSIBLE RT PORTACATH.
--- NOTE | 2019-12-03 07:10 | NUR ---
RECEIVED REPORT FROM KAMI COCHRAN FOR CONTINUATION OF CARE.
[2019-12-03 07:12] LABS: APPEARANCE,URINE HAZY (CLEAR); BILIRUBIN,URINE NEGATIVE (NEGATIVE); BLOOD, URINE TRACE-I (NEGATIVE); COLOR,URINE YELLOW (YELLOW); LEUKOCYTE ESTERASE ,URINE 2+ (NEGATIVE); NITRITE, URINE NEGATIVE (NEGATIVE); UGLUCOSE NEGATIVE (NEGATIVE)
[2019-12-03 07:25] LABS: RBC,URINE 0-5 /HPF (0-5); WBC,URINE 80-100 /HPF (0-5)
[2019-12-03] MEDS ORDERED: NACL 0.9% 1,000 ML IV ONE (07:35)
[2019-12-03] MEDS ORDERED: LEVOFLOXACIN 500 MG/D5W PREMIX 100 ML IV ONE (07:35)
--- NOTE | 2019-12-03 08:04 | NUR ---
PT RESTING IN BED AT LOWEST POSITION, HOB ELEVATED, SIDE RAILS X1 , BLANKET PROVIDED AND LIGHTS DIMMED FOR PT COMFORT.
--- NOTE | 2019-12-03 09:10 | NUR ---
called pharmacy for heparin flush.
[2019-12-03 09:37] VITALS: BP 131/81
--- NOTE | 2019-12-03 09:39 | NUR ---
Patient discharged with v/s stable. Written and verbal after care instructions given and explained. Patient alert, oriented and verbalized understanding of instructions. Ambulatory with steady gait. All questions addressed prior to discharge. ID band removed. Patient advised to follow up with PMD. Rx of MACROBID given. Patient educated on indication of medication including possible reaction and side effects. Opportunity to ask questions provided and answered. PT STATES SHE CALLED FOR A RIDE HOME AND THEY ARE WAITING OUTSIDE FOR HER.
== END 2019-12-03 09:39 | disposition home or self-care (01) ==
LOC: MED 05:58
DX: M54.42 Lumbago with sciatica, left side (principal); N39.0 Urinary tract infection, site not specified; Z88.2 Allergy status to sulfonamides; Z88.8 Allergy status to other drugs, medicaments and biological substances; N28.9 Disorder of kidney and ureter, unspecified
CPT/HCPCS: 81001; 81025; 87086; 87186; 96365; 96375; 96376; 99284; J1642; J1956; J2270; J2405; J7030

== ENCOUNTER 2019-12-05 04:50 | Emergency (ER) | payer MEDICAID ==
[~2019-12-05] VITALS: Ht 162.6 cm; Wt 68.0 kg
[2019-12-05 04:54] VITALS: BP 123/71
--- NOTE | 2019-12-05 05:02 | NUR ---
PT AMBULATED TO ER BED 4
--- NOTE | 2019-12-05 05:08 | NUR ---
Dr. Whipple examining patient.
--- NOTE | 2019-12-05 05:08 | NUR ---
DR. NEWELL AT BEDSIDE EXAMINING PATIENT.
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
[2019-12-05] MEDS ORDERED: MORPHINE SULFATE 4 MG/ML SYR IVP ONE ×2 (05:20→06:10)
--- NOTE | 2019-12-05 05:36 | NUR ---
PT TAKEN TO XRAY
--- NOTE | 2019-12-05 05:43 | NUR ---
PT RETURN FROM XRAY
--- NOTE | 2019-12-05 05:57 | NUR ---
BLOOD COLLECTED AND WALKED OVER TO LAB.
[2019-12-05 06:08] LABS: BASOPHILS % (AUTO) 0.6 % (0.0-2.0); EOSINOPHILS # (AUTO) 0.2 K/uL (0-0.4); EOSINOPHILS % (AUTO) 2.6 % (0.0-4.0); HEMATOCRIT 38.6 % (36-48); HEMOGLOBIN 12.8 g/dL (12.0-16.0); LYMPHOCYTES # (AUTO) 2.5 K/uL (2.5-16.5); LYMPHOCYTES % (AUTO) 34.6 % (20.5-51.1); MEAN CORPUSCULAR HEMOGLOBIN 34 pg (27-31); MEAN CORPUSCULAR HGB CONC 33 g/dL (33-37); MEAN CORPUSCULAR VOLUME 100.9 fL (80-94); MONOCYTES # (AUTO) 0.6 K/uL (0.8-1.0); MONOCYTES % (AUTO) 8.8 % (1.7-9.3); NEUTROPHILS # (AUTO) 3.9 K/uL (1.8-7.7); NEUTROPHILS % (AUTO) 53.4 % (42.2-75.2); PLATELET COUNT (AUTO) 192 K/uL (140-450); RED BLOOD CELL COUNT(AUTO) 3.83 MIL/uL (4.20-5.40); RED CELL DISTRIBUTION WIDTH 13.8 % (11.6-13.7); WHITE BLOOD COUNT (AUTO) 7.3 K/uL (4.8-10.8)
[2019-12-05 06:18] LABS: ALBUMIN 3.5 g/dL (3.4-5.0); ANION GAP 15.8 (8-16); CARBON DIOXIDE 24.1 mmol/L (21-32); CREATININE 1.3 mg/dL (0.6-1.3); POTASSIUM 3.9 mmol/L (3.5-5.1); TOTAL BILIRUBIN 0.3 mg/dL (0.0-1.0)
[2019-12-05 06:34] VITALS: BP 123/71
== END 2019-12-05 06:35 | disposition home or self-care (01) ==
LOC: MED 04:50
DX: M79.605 Pain in left leg (principal); D53.1 Other megaloblastic anemias, not elsewhere classified; Z88.6 Allergy status to analgesic agent; Z85.3 Personal history of malignant neoplasm of breast; Z84.1 Family history of disorders of kidney and ureter; Z79.899 Other long term (current) drug therapy
CPT/HCPCS: 36415; 72110; 80053; 85025; 96374; 96376; 99284; J2270

== ENCOUNTER 2019-12-06 05:40 | Emergency (ER) | payer MEDICAID ==
[~2019-12-06] VITALS: Ht 162.6 cm; Wt 68.0 kg
[2019-12-06 05:45] VITALS: BP 115/84
--- NOTE | 2019-12-06 05:48 | NUR ---
PT AMBULATED TO BED 12 WITH STEADY GAIT.
--- NOTE | 2019-12-06 05:50 | NUR ---
Dr. Whipple examining patient.
[2019-12-06] MEDS ORDERED: KETOROLAC 30 MG/ML VIAL IVP ONE (05:55)
[2019-12-06] MEDS ORDERED: HYDROcodone/APAP 5/325 MG 1 TAB TAB PO ONE (05:55)
--- NOTE | 2019-12-06 05:57 | NUR ---
54 YO F BIB SELF FOR C/C OF 10/10 LEFT LEG PAIN X1 WEEK. PT WAS SEEN IN ER YESTERDAY FOR THE SAME REASON. PERIPHERAL PULSES ARE EQUAL AND REGULAR, PT IS STEADY DURING AMBULATION. PER PT SHE TOOK NEURONTIN TODAY WITH NO RELIEF OF SYMPTOMS. PT PRESENT WITH A PORT-A-CATH ON RIGHT SIDE OF CHEST. PT DENIES FEVER, COUGH, SOB, N/V/D. BED LOCKED AND IN LOWEST POSITION. SIDE RAILS X2. MED HX: OVARIAN CANCER RX: GABAPENTIN ALLERGIES: SEE ALLERGIES ABOVE
[2019-12-06] MEDS ORDERED: traMADol 50 MG TAB ONE (05:59)
[2019-12-06] MEDS ORDERED: traMADol 50 MG TAB PO ONE (06:00)
[2019-12-06 06:16] VITALS: BP 115/84
== END 2019-12-06 06:16 | disposition home or self-care (01) ==
LOC: MED 05:40
DX: G89.29 Other chronic pain (principal); M79.605 Pain in left leg; N20.0 Calculus of kidney; Z79.899 Other long term (current) drug therapy; Z98.82 Breast implant status; Z88.2 Allergy status to sulfonamides; Z88.8 Allergy status to other drugs, medicaments and biological substances
CPT/HCPCS: 99283

== ENCOUNTER 2019-12-07 04:55 | Emergency (ER) | payer MEDICAID ==
[~2019-12-07] VITALS: Ht 162.6 cm; Wt 69.9 kg
[2019-12-07 04:58] VITALS: BP 139/83
--- NOTE | 2019-12-07 04:58 | NUR ---
PT AMBULATED TO BED #7.
[2019-12-07 05:00] VITALS: BP 139/83
--- NOTE | 2019-12-07 05:00 | NUR ---
PT ASSESSMENT COMPLETE. PT SEATED ON BED A/W ERMD EVALUATION.
--- NOTE | 2019-12-07 05:15 | NUR ---
DR. RONQUILLO AT BEDSIDE FOR PT EVALUATION
[2019-12-07] MEDS ORDERED: MORPHINE SULFATE 4 MG/ML SYR IVP ONE (05:20)
[2019-12-07] MEDS ORDERED: ONDANSETRON 4 MG/2 ML VIAL IVP ONE (05:40)
--- NOTE | 2019-12-07 05:40 | NUR ---
PT REPORTS NAUSEA AFTER ADMINISTRATION OF MORPHINE IVP. JANIE RONQUILLO MADE AWARE, NEW ORDER FOR ZOFRAN 4MG IVP GIVEN AND CARRIED OUT.
--- NOTE | 2019-12-07 05:40 | NUR ---
ULTRASOUND AT BEDSIDE.
--- NOTE | 2019-12-07 05:55 | NUR ---
PT REPORTS STILL REPORTS PAIN TO LT LEG. HAILYD MADE AWARE.
[2019-12-07] MEDS ORDERED: KETOROLAC 30 MG/ML VIAL IVP ONE (06:00)
== END 2019-12-07 06:20 | disposition home or self-care (01) ==
LOC: MED 04:55
DX: M79.605 Pain in left leg (principal); D64.9 Anemia, unspecified; Z88.2 Allergy status to sulfonamides; Z84.1 Family history of disorders of kidney and ureter; Z85.3 Personal history of malignant neoplasm of breast; Z79.899 Other long term (current) drug therapy
CPT/HCPCS: 93971; 96374; 96375; 99284; J1885; J2270; J2405; Q0092

== ENCOUNTER 2019-12-11 14:41 | Emergency (ER) | payer MEDICAID ==
[~2019-12-11] VITALS: Ht 162.6 cm; Wt 71.2 kg
[2019-12-11 14:59] VITALS: BP 124/62
--- NOTE | 2019-12-11 15:10 | NUR ---
54 Y/O FEMALE FROM HOME C/O LT LOWER BACK PAIN RADIATING TO LT FOOT X 1.5 WKS. DENIES TRAUMA/INJURY. 04/12 SHARP/SHOOTING PAIN AT THIS TIME. STATES SHE USUALLY TAKES NORCO FOR PAIN BUT RAN OUT AND CANNOT GET APPT WITH PRIMARY. PT ABLE TO AMBULATE. SKIN WARM AND DRY. VSS MEDHX: SCIATICA, CANCER, ANEMIA
--- NOTE | 2019-12-11 15:13 | NUR ---
DR ADAMS AT BEDSIDE EXAMINING PT
[2019-12-11] MEDS ORDERED: MORPHINE SULFATE 4 MG/ML SYR IVP ONE (15:20)
--- NOTE | 2019-12-11 15:40 | NUR ---
PAIN DECREASED AFTER MORPHINE
[2019-12-11 15:46] VITALS: BP 124/62
--- NOTE | 2019-12-11 15:47 | NUR ---
Patient discharged with v/s stable. Written and verbal after care instructions given and explained. Patient alert, oriented and verbalized understanding of instructions. Ambulatory with steady gait. All questions addressed prior to discharge. ID band removed. Patient advised to follow up with PMD. Rx of VALACYCLOVIR given. Patient educated on indication of medication including possible reaction and side effects. Opportunity to ask questions provided and answered.
== END 2019-12-11 15:47 | disposition home or self-care (01) ==
LOC: MED 14:41
DX: M54.5 Low back pain (principal); D64.9 Anemia, unspecified; M54.30 Sciatica, unspecified side; Z88.2 Allergy status to sulfonamides; Z84.1 Family history of disorders of kidney and ureter; Z88.6 Allergy status to analgesic agent; Z79.899 Other long term (current) drug therapy; Z85.9 Personal history of malignant neoplasm, unspecified
CPT/HCPCS: 96374; 99283; J1642; J2270

== ENCOUNTER 2020-02-21 15:51 | Emergency (ER) | payer MEDICAID ==
[~2020-02-21] VITALS: Ht 162.6 cm; Wt 71.2 kg
[2020-02-21 15:56] VITALS: BP 127/87
--- NOTE | 2020-02-21 16:01 | NUR ---
AMBULATED TO BED 7
--- NOTE | 2020-02-21 16:05 | NUR ---
pt c/o low back pain for 2 days , 04/12 , took norco 2x already with no relief , aox4 , afibrile , ambulatory with steady gait ,denies truama, pink palpebral conjunctiva , anicteric sclera , sce , cbs, flat soft abdomen , tender low back. pmhxs ovarian ca s/p chemo last june 2019.
--- NOTE | 2020-02-21 16:38 | NUR ---
dr torres at bedside evaluating pt.
[2020-02-21] MEDS ORDERED: KETAMINE 10 MG/ML UD SYR **ER IVP ONE (16:50)
--- NOTE | 2020-02-21 17:41 | NUR ---
dr torres at bedside reevaluating pt.
[2020-02-21] MEDS ORDERED: MORPHINE SULFATE 4 MG/ML SYR IVP ONE ×2 (18:05→18:20)
[2020-02-21] MEDS ORDERED: ONDANSETRON 4 MG/2 ML VIAL IVP ONE (18:30)
--- NOTE | 2020-02-21 18:40 | NUR ---
pt comfortable in bed side rails up x1 and lock at lowest position with stable v/s.
--- NOTE | 2020-02-21 19:07 | NUR ---
gave report to rn karissapt comfortable in bed heparin at bedside.
[2020-02-21 19:17] VITALS: BP 139/86
== END 2020-02-21 19:18 | disposition home or self-care (01) ==
LOC: MED 15:51
DX: G89.29 Other chronic pain (principal); M54.5 Low back pain; Z88.2 Allergy status to sulfonamides; Z79.899 Other long term (current) drug therapy
CPT/HCPCS: 96374; 96375; 99285; J1642; J2270; J2405

== ENCOUNTER 2020-02-25 17:14 | Emergency (ER) | payer MEDICAID ==
[~2020-02-25] VITALS: Ht 162.6 cm; Wt 72.6 kg
[2020-02-25 17:50] VITALS: BP 113/93
[2020-02-25 19:15] VITALS: BP 113/93
--- NOTE | 2020-02-25 19:15 | NUR ---
PATIENT LEFT WITHOUT BEING SEEN BY DR. RONQUILLO. NO FURTHER CARE PROVIDED FOR PATIENT.
== END 2020-02-25 19:00 | disposition left against medical advice (07) ==
LOC: MED 17:14
DX: M54.5 Low back pain (principal); Z53.21 Procedure and treatment not carried out due to patient leaving prior to being seen by health care provider

== ENCOUNTER 2020-03-05 18:41 | Emergency (ER) | payer MEDICAID ==
[~2020-03-05] VITALS: Ht 162.6 cm; Wt 72.6 kg
[2020-03-05 18:45] VITALS: BP 124/87
--- NOTE | 2020-03-05 18:54 | NUR ---
PATIENT AMBULATED TO BED 2.
--- NOTE | 2020-03-05 18:58 | NUR ---
54 Y/O FEMALE C/O LOWER BACK PAIN AT COCCYX AREA X5 DAYS, PT SEES CONTROL PANEL BUILDER AND IS TAKING NORCO 5MG, LAST DOSE WAS 3 HOURS AGO, BUT PAIN IS UNRELIEVED. PT STATES SHE HAS HX OF SLIPPED DISC WELL. ALSO C/O DYSURIA/URINARY FREQUENCY/ SUPRAPUBIC TENDERNESS THAT STARTED TODAY AND HAD SCANT AMOUNT OF BLEEDING WHEN WIPING. PT STATES SHE HAS MILD NAUSEA, NO VOMITING. PMH: SLIPPED DISC
--- NOTE | 2020-03-05 19:10 | NUR ---
REPORT MARY ARAUJO RN. PT STILL WASN'T ABLE TO GIVE UA, PROVIDED HER WITH CIP OF WATER.
--- NOTE | 2020-03-05 19:21 | NUR ---
PT STATES SHE HAS AN ACCESS PORT TO R UPPER CHEST
[2020-03-05] MEDS ORDERED: MORPHINE SULFATE 4 MG/ML SYR IM ONE (19:25)
[2020-03-05] MEDS ORDERED: ONDANSETRON 4 MG ODT PO ONE (19:25)
[2020-03-05] MEDS ORDERED: MORPHINE SULFATE 4 MG/ML SYR IVP ONE (19:40)
--- NOTE | 2020-03-05 19:48 | NUR ---
PT UP AND AMBULATED TO RESTROOM. PT REFUSING IM INJECTION, REQUESTING THAT HER PORT BE ACCESSED FOR MED. AWARE
--- NOTE | 2020-03-05 19:57 | NUR ---
URINE COLLECTED AND TAKEN TO LAB
[2020-03-05 20:19] LABS: APPEARANCE,URINE SL CLOUDY (CLEAR); BILIRUBIN,URINE NEGATIVE (NEGATIVE); BLOOD, URINE 3+ (NEGATIVE); COLOR,URINE YELLOW (YELLOW); LEUKOCYTE ESTERASE ,URINE NEGATIVE (NEGATIVE); NITRITE, URINE NEGATIVE (NEGATIVE); PH,URINE 6.5 (5.0-9.0); UGLUCOSE NEGATIVE (NEGATIVE)
[2020-03-05] MEDS ORDERED: MORPHINE SULFATE 10 MG/ML VIAL IVP ONE (20:40)
[2020-03-05 21:00] LABS: RBC,URINE 50-80 /HPF (0-5)
[2020-03-05 21:01] LABS: CALCIUM OXALATE CRYSTALS,UR 0-10 /HPF (None Seen); WBC,URINE 0-5 /HPF (0-5)
[2020-03-05 22:14] VITALS: BP 120/85
== END 2020-03-05 22:14 | disposition home or self-care (01) ==
LOC: MED 18:41
DX: M54.5 Low back pain (principal); N28.9 Disorder of kidney and ureter, unspecified; Z85.9 Personal history of malignant neoplasm, unspecified; Z88.2 Allergy status to sulfonamides; Z79.899 Other long term (current) drug therapy
CPT/HCPCS: 81001; 96374; 96376; 99284; J2270; Q0162

== ENCOUNTER 2020-03-08 12:31 | Emergency (ER) | payer MEDICAID ==
[~2020-03-08] VITALS: Ht 162.6 cm; Wt 72.6 kg
[2020-03-08 12:33] VITALS: BP 119/79
--- NOTE | 2020-03-08 12:48 | NUR ---
C/O PAINFUL URINATION, LEFT LOWER BACK PAIN X LAST NIGHT. SEEN HERE 03/05/20 FOR SCIATICA, CHRONIC BACK PAIN. PT AOX4, AFIBRILE , AMBULATORY WITH STEADY GAIT , SCE, FLAT SOFT ABDOMEN. MED HX: CANCER, RENAL DISEASE
--- NOTE | 2020-03-08 12:51 | NUR ---
dr almanzar at bedside evaluating pt.
[2020-03-08] MEDS ORDERED: MORPHINE SULFATE 4 MG/ML SYR IVP ONE ×2 (12:55→14:15)
[2020-03-08] MEDS ORDERED: ONDANSETRON 4 MG/2 ML VIAL IVP ONE (12:55)
[2020-03-08] MEDS ORDERED: NACL 0.9% 1,000 ML IV SCH (12:55)
[2020-03-08 13:34] LABS: BASOPHILS % (AUTO) 0.2 % (0.0-2.0); EOSINOPHILS # (AUTO) 0.1 K/uL (0-0.4); EOSINOPHILS % (AUTO) 0.9 % (0.0-4.0); HEMATOCRIT 39.6 % (36-48); HEMOGLOBIN 13.2 g/dL (12.0-16.0); LYMPHOCYTES # (AUTO) 1.4 K/uL (2.5-16.5); LYMPHOCYTES % (AUTO) 16.4 % (20.5-51.1); MEAN CORPUSCULAR HEMOGLOBIN 32 pg (27-31); MEAN CORPUSCULAR HGB CONC 33 g/dL (33-37); MONOCYTES # (AUTO) 0.6 K/uL (0.8-1.0); NEUTROPHILS # (AUTO) 6.6 K/uL (1.8-7.7); NEUTROPHILS % (AUTO) 75.5 % (42.2-75.2); PLATELET COUNT (AUTO) 206 K/uL (140-450); RED BLOOD CELL COUNT(AUTO) 4.08 MIL/uL (4.20-5.40); RED CELL DISTRIBUTION WIDTH 13.5 % (11.6-13.7); WHITE BLOOD COUNT (AUTO) 8.7 K/uL (4.8-10.8)
--- NOTE | 2020-03-08 13:44 | NUR ---
PT TO CT SCAN VIA RLISSIE.
--- NOTE | 2020-03-08 13:55 | NUR ---
PT BACK FROM CT SCAN.
[2020-03-08 13:59] LABS: ALBUMIN 3.5 g/dL (3.4-5.0); ANION GAP 16.5 (8-16); CARBON DIOXIDE 22.5 mmol/L (21-32); TOTAL BILIRUBIN 0.3 mg/dL (0.0-1.0)
[2020-03-08] MEDS ORDERED: cefTRIAXone 1,000 MG VIAL ONE (13:59)
[2020-03-08] MEDS ORDERED: MORPHINE SULFATE 10 MG/ML VIAL IVP ONE (14:05)
--- NOTE | 2020-03-08 14:12 | NUR ---
pt requesting dilaudid for pain control. JANIE made aware.
[2020-03-08] MEDS ORDERED: NACL 0.9% 1,000 ML IV ONE (14:20)
[2020-03-08 14:37] LABS: BILIRUBIN,URINE NEGATIVE (NEGATIVE); BLOOD, URINE 3+ (NEGATIVE); LEUKOCYTE ESTERASE ,URINE TRACE (NEGATIVE); NITRITE, URINE POSITIVE (NEGATIVE); UGLUCOSE NEGATIVE (NEGATIVE)
[2020-03-08 14:46] LABS: APPEARANCE,URINE HAZY (CLEAR); COLOR,URINE STRAW (YELLOW)
[2020-03-08 14:47] LABS: RBC,URINE >100 /HPF (0-5)
[2020-03-08 14:48] LABS: WBC,URINE TOO MANY TO COUNT /HPF (0-5)
--- NOTE | 2020-03-08 14:51 | NUR ---
DR TOMLINSON AT BEDSIDE REEVALUATING PT.
--- NOTE | 2020-03-08 14:54 | NUR ---
DR TOMLINSON VERBAL ORDER PT WILL BE DISCHARGE SOONEST 1LITER OF SALINE IS DONE.V/S STABLE PT COMFORTABLE IN BED SIDE RAIL UP X1 AND LOCK AT LOWEST POSITION.
--- NOTE | 2020-03-08 16:14 | NUR ---
DR VILLANUEVA INFORMED AND AWARE PT B/P IS LOW AND PT STATED SHE FEELS DIZZY . WILL RECHECK PT BP.
--- NOTE | 2020-03-08 16:18 | NUR ---
PT AOX4 , STATED DIZZINESS WENT AWAY , PT STARTED TO MOVE .
--- NOTE | 2020-03-08 16:23 | NUR ---
DR VILLANUEVA AT BEDSIDE TALKING TO PT.
[2020-03-08 16:32] VITALS: BP 102/65
--- NOTE | 2020-03-08 16:33 | NUR ---
Patient discharged with v/s stable. Written and verbal after care instructions given and explained regarding flank pain. Patient alert, oriented and verbalized understanding of instructions. Ambulatory with steady gait. All questions addressed prior to discharge. ID band removed. Patient advised to follow up with PMD. Rx of keflex and phenazopyridine given. Patient educated on indication of medication including possible reaction and side effects. Opportunity to ask questions provided and answered.Blood pressure stable. .
--- NOTE | 2020-03-11 08:53 | NUR ---
LATE ENTRY-CONFIRMED WITH RN NS INFUSION COMPLETED AT 1526 03/08/20.
== END 2020-03-08 16:33 | disposition home or self-care (01) ==
LOC: MED 12:31
DX: N39.0 Urinary tract infection, site not specified (principal); Z85.43 Personal history of malignant neoplasm of ovary; Z98.890 Other specified postprocedural states; Z79.899 Other long term (current) drug therapy; Z88.2 Allergy status to sulfonamides; Z88.8 Allergy status to other drugs, medicaments and biological substances
CPT/HCPCS: 36415; 74176; 80053; 81001; 83690; 85025; 87040; 87086; 87186; 96365; 96375; 96376; 99284; J0696; J2270; J2405; J7030; 96361

== ENCOUNTER 2020-03-24 18:32 | Emergency (ER) | payer MEDICAID ==
[~2020-03-24] VITALS: Ht 162.6 cm; Wt 74.8 kg
[2020-03-24 18:44] VITALS: BP 139/88
--- NOTE | 2020-03-24 18:49 | NUR ---
PT AMBULATED TO ER BED 05
--- NOTE | 2020-03-24 18:58 | NUR ---
54 Y/O FEMALE C/O LEFT SIDED FLANK PAIN SINCE LAST NIGHT, PAIN IS 7/10 SHARP, NON RADIATING. PT STATES SHE IS HAVING URGENGY AND HESISTANCY, STATES MILD DYSURIA AN DDENIES ANY HEMATURIA. PT STATES SHE IS NAUSEOUS BUT NO VOMITING. SKIN IS COOL/DRY. AAOX4. CAP REFILL <3
[2020-03-24] MEDS ORDERED: MORPHINE SULFATE 4 MG/ML SYR IVP ONE ×2 (19:05→20:00)
[2020-03-24] MEDS ORDERED: ONDANSETRON 4 MG/2 ML VIAL IVP ONE (19:05)
[2020-03-24] MEDS ORDERED: NACL 0.9% 1,000 ML IV ONE (19:05)
--- NOTE | 2020-03-24 19:12 | NUR ---
ANTIONE RECEIVED FROM VAN MCCLURE
--- NOTE | 2020-03-24 19:24 | NUR ---
LABS DRAWN FROM PORT AND GIVEN TO LAB TACH.
[2020-03-24] MEDS ORDERED: ONDANSETRON 4 MG ODT PO ONE (19:25)
[2020-03-24] MEDS ORDERED: MORPHINE SULFATE 4 MG/ML SYR IM ONE (19:25)
--- NOTE | 2020-03-24 19:37 | NUR ---
PT STATES SHE DOESN'T WANT A CT SCAN, FEELS ITS UNECESSARY, SHE KNOWS HER BODY AND IT DOES'T HAVE ANY THINK TO DO WITH KIDNEY STONES
[2020-03-24 19:50] LABS: BASOPHILS % (AUTO) 0.2 % (0.0-2.0); EOSINOPHILS % (AUTO) 0.8 % (0.0-4.0); HEMATOCRIT 35.2 % (36-48); HEMOGLOBIN 11.8 g/dL (12.0-16.0); LYMPHOCYTES # (AUTO) 1.4 K/uL (2.5-16.5); LYMPHOCYTES % (AUTO) 26.4 % (20.5-51.1); MEAN CORPUSCULAR HEMOGLOBIN 32 pg (27-31); MEAN CORPUSCULAR HGB CONC 34 g/dL (33-37); MEAN CORPUSCULAR VOLUME 96.2 fL (80-94); MONOCYTES # (AUTO) 0.5 K/uL (0.8-1.0); MONOCYTES % (AUTO) 9.4 % (1.7-9.3); NEUTROPHILS # (AUTO) 3.4 K/uL (1.8-7.7); NEUTROPHILS % (AUTO) 63.2 % (42.2-75.2); PLATELET COUNT (AUTO) 208 K/uL (140-450); RED BLOOD CELL COUNT(AUTO) 3.66 MIL/uL (4.20-5.40); RED CELL DISTRIBUTION WIDTH 13.3 % (11.6-13.7); WHITE BLOOD COUNT (AUTO) 5.3 K/uL (4.8-10.8)
[2020-03-24 19:58] LABS: APPEARANCE,URINE CLEAR (CLEAR); BILIRUBIN,URINE NEGATIVE (NEGATIVE); BLOOD, URINE 3+ (NEGATIVE); COLOR,URINE YELLOW (YELLOW); LEUKOCYTE ESTERASE ,URINE 1+ (NEGATIVE); NITRITE, URINE NEGATIVE (NEGATIVE); PH,URINE 7.5 (5.0-9.0); UGLUCOSE NEGATIVE (NEGATIVE)
[2020-03-24 20:08] LABS: RBC,URINE 20-50 /HPF (0-5)
--- NOTE | 2020-03-24 20:10 | NUR ---
PT UP AND AMBULATED TO RESTROOM WITH STEADY GAIT. STILL STATES HAVING SEVERE PAIN, PA AWARE
[2020-03-24 20:31] LABS: ALBUMIN 3.3 g/dL (3.4-5.0); ANION GAP 16.5 (8-16); CARBON DIOXIDE 22.7 mmol/L (21-32); CREATININE 1.1 mg/dL (0.6-1.3); POTASSIUM 3.2 mmol/L (3.5-5.1); TOTAL BILIRUBIN 0.3 mg/dL (0.0-1.0)
[2020-03-24 20:50] VITALS: BP 139/88
--- NOTE | 2020-03-24 20:51 | NUR ---
Patient does not wish to proceed with medical care recommended by EZIO MONK. Patient given information related to possible complications, up to and including , which could occur as a result of leaving hospital at this time. Patient verbalizes understanding of risks involved leaving against medical advice. Patient has signed AMA form.
== END 2020-03-24 20:47 | disposition left against medical advice (07) ==
LOC: MED 18:32
DX: N20.0 Calculus of kidney (principal); Z87.448 Personal history of other diseases of urinary system; Z85.43 Personal history of malignant neoplasm of ovary; Z79.899 Other long term (current) drug therapy; Z88.2 Allergy status to sulfonamides; Z88.8 Allergy status to other drugs, medicaments and biological substances
CPT/HCPCS: 36415; 80053; 81001; 85025; 87086; 96361; 96374; 96375; 96376; 99284; J2270; J2405; J7030

== ENCOUNTER 2020-03-28 13:57 | Emergency (ER) | payer MEDICAID ==
[~2020-03-28] VITALS: Ht 157.5 cm; Wt 65.8 kg
[2020-03-28 14:05] VITALS: BP 135/83
[2020-03-28] MEDS ORDERED: MORPHINE SULFATE 4 MG/ML SYR IVP ONE (14:20)
[2020-03-28 15:46] VITALS: BP 130/74
== END 2020-03-28 15:46 | disposition home or self-care (01) ==
LOC: MED 13:57
DX: N39.0 Urinary tract infection, site not specified (principal); M54.5 Low back pain; N28.9 Disorder of kidney and ureter, unspecified; Z88.2 Allergy status to sulfonamides; Z85.9 Personal history of malignant neoplasm, unspecified; Z90.711 Acquired absence of uterus with remaining cervical stump; Z79.899 Other long term (current) drug therapy; Z98.84 Bariatric surgery status
CPT/HCPCS: 81002; 96374; 99283; J1642; J2270

== ENCOUNTER 2020-04-01 17:02 | Emergency (ER) | payer MEDICAID ==
[~2020-04-01] VITALS: Ht 162.6 cm; Wt 73.9 kg
[~2020-04-01 17:02] MED LIST changes: -CETI-120 PO; +CETI10TA81 PO
[2020-04-01 17:06] VITALS: BP 141/91
--- NOTE | 2020-04-01 17:19 | NUR ---
RUIMiguel from home with c/o chronic back pain 04/12 Patient seen at her pain management MD's office today and advised to come to ED. A, A, Ox4, cooperative. HOB elevated Connected to surveillance system monitor, sinus rhythm, VVS Moving all exts w/o difficulty, resp even and unlabored, in NAD Awaiting evaluation by MD Will continue to monitor
--- NOTE | 2020-04-01 17:20 | NUR ---
Urine dipped, results given to PA POC HCG negative
[2020-04-01] MEDS ORDERED: ONDANSETRON 4 MG ODT PO ONE (17:30)
[2020-04-01] MEDS ORDERED: MORPHINE SULFATE 4 MG/ML SYR IVP ONE (17:30)
--- NOTE | 2020-04-01 17:38 | NUR ---
Morphine and zofran administered. Morphine given via right SC port-a-cath accessed with guillen needle Tolerated well, will continue to monitor
--- NOTE | 2020-04-01 18:28 | NUR ---
Patient states she received no releif from Morpoine IV, PA notified
[2020-04-01 19:00] VITALS: BP 124/89
[2020-04-01] MEDS ORDERED: diphenhydrAMINE 50 MG/ML VIAL IM ONE (19:00)
== END 2020-04-01 19:45 | disposition home or self-care (01) ==
LOC: MED 17:02
DX: M54.5 Low back pain (principal); M51.26 Other intervertebral disc displacement, lumbar region; N28.9 Disorder of kidney and ureter, unspecified; Z85.9 Personal history of malignant neoplasm, unspecified; Z88.2 Allergy status to sulfonamides; Z98.84 Bariatric surgery status; Z79.899 Other long term (current) drug therapy; Z98.890 Other specified postprocedural states
CPT/HCPCS: 96372; 96374; 99284; J1200; J2270; Q0162; 81002

== ENCOUNTER 2020-04-17 09:51 | Emergency (ER) | payer MEDICAID ==
[~2020-04-17] VITALS: Ht 162.6 cm; Wt 69.9 kg
[2020-04-17 09:53] VITALS: BP 146/85
--- NOTE | 2020-04-17 10:02 | NUR ---
Patient ambulated to bed 4. RN evaluating the patient at bedside.
--- NOTE | 2020-04-17 10:03 | NUR ---
Philippe green in [facility] - 04/17/20 at 1021 by [place] amb to bed 04
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
--- NOTE | 2020-04-17 10:24 | NUR ---
Dr. Johansen is evaluating the patient at bedside.
[2020-04-17] MEDS ORDERED: chlordiazePOXIDE 25 MG CAP PO SCH (10:30)
[2020-04-17] MEDS ORDERED: CLONIDINE HYDROCHLORIDE 0.1 MG TAB PO ONE (10:30)
[2020-04-17] MEDS ORDERED: NACL 0.9% 1,000 ML IV ONE (10:30)
--- NOTE | 2020-04-17 11:49 | NUR ---
Pt states she still feels "shaky" and does not want to go home yet. Dr Johansen made aware.
--- NOTE | 2020-04-17 12:55 | NUR ---
SPOKE TO SHANIQUA FROM [facility] REGARDING PT BEING ADMITTED INTO THE FACILITY. PER SHANIQUA [facility] IS NOT A CONTRACTED FACILITY FOR THE PT'S INSURANCE. SHE ALSO STATED SHE WOULD SCHEDULE A PEER TO PEER WITH JANIE SHI, AND DR. COLLADO FOR PT TO BE ACCEPTED INTO "[place]". SHANIQUA ALSO REQUESTED FOR FACE SHEET, AND ER NOTES TO BE FAXED TO HER AT [phone].
--- NOTE | 2020-04-17 13:18 | NUR ---
PT IS SITTING UP IN BED. VERY RESTLESS, AND SHAKEY. "I FEEL DEHYDRATED STILL, MAY I HAVE SOME WATER". PER ERMD OK TO HYDRATE PT PO. PT GIVEN TWO CUPS OF WATER. PT STILL ATTACHED TO BEDSIDE MONITOR. VSS, R/R EQUAL, AND UNLABORED. SIDE RAIL X1, BED IN LOW POSITION, WILL CONTINUE TO MONITOR.
--- NOTE | 2020-04-17 13:45 | NUR ---
Patient discharged with v/s stable. Written and verbal after care instructions given and explained. Patient alert, oriented and verbalized understanding of instructions. Ambulatory with steady gait. All questions addressed prior to discharge. ID band removed. Patient advised to follow up with PMD. Rx of LIBRIUM, CLONIDINE given. Patient educated on indication of medication including possible reaction and side effects. Opportunity to ask questions provided and answered.
[2020-04-17 13:54] VITALS: BP 127/63
--- NOTE | 2020-04-17 16:23 | NUR ---
SPOKE WITH SHANIQUA FROM [facility]. SHE EXPLAINED THE PEER TO PEER DECISION BETWEEN THE ERMD, AND DR. COLLADO. SHE EXPLAINED THE PT NEEDED TO UTILIZE HER PCP FOR HER MEDICATION. SHE NEEDS TO SCHEDULE, AND BE EVALUATED BY PCP, THEN MOVE FORWARD WITH WHATEVER PLAN OF CARE THEY COME UP WITH.
== END 2020-04-17 13:45 | disposition home or self-care (01) ==
LOC: MED 09:51
DX: F13.239 Sedative, hypnotic or anxiolytic dependence with withdrawal, unspecified (principal); F11.23 Opioid dependence with withdrawal; Z88.2 Allergy status to sulfonamides; Z88.8 Allergy status to other drugs, medicaments and biological substances; Z85.43 Personal history of malignant neoplasm of ovary; Z79.899 Other long term (current) drug therapy
CPT/HCPCS: 96361; 96374; 99283; J1642; J7030

== ENCOUNTER 2020-07-08 15:42 | Emergency (ER) | payer MEDICAID ==
[~2020-07-08 15:42] MED LIST changes: -CIPR500T4 PO; -LACT10SO11 PO; -TRAM50TA1 PO
--- NOTE | 2020-07-08 17:50 | NUR ---
PATIENT LEFT WITHOUT BEING SEEN BY DR. Quiros. NO FURTHER CARE PROVIDED FOR PATIENT.
== END 2020-07-08 17:50 | disposition left against medical advice (07) ==
LOC: MED 15:42
DX: Z53.21 Procedure and treatment not carried out due to patient leaving prior to being seen by health care provider (principal)

== ENCOUNTER 2020-08-01 17:13 | Emergency (ER) | payer MEDICAID ==
[~2020-08-01] VITALS: Ht 165.1 cm; Wt 72.6 kg
--- NOTE | 2020-08-01 17:17 | NUR ---
BIBA BLS TAKEN TO BED 4
[2020-08-01 17:25] VITALS: BP 136/83
--- NOTE | 2020-08-01 17:30 | NUR ---
55 YEAR OLD FEMALE COMPLAINS OF LOWER BACK PAIN X TODAY. PER EMS, PATIENT CONSUMED EXTRA GABAPENTIN AND IS HAVING ANXIETY. PER EMS, AO3 BASELINE. BREATHING EVEN AND UNLABORED, SKIN WARM AND DRY. BED IN LOWEST POSITION, LOCKED, SIDERAILS UP X2. PMH - DENIES ALLERGIES - SULFA
[2020-08-01] MEDS ORDERED: ONDANSETRON 4 MG ODT PO ONE (17:45)
[2020-08-01] MEDS ORDERED: MORPHINE SULFATE 4 MG/ML SYR IM ONE (18:00)
--- NOTE | 2020-08-01 18:55 | NUR ---
PT STATES SHE IS STARTING TO HAVE BAD ANXIETY, ERMD MADE AWARE
[2020-08-01] MEDS ORDERED: LORazepam 1 MG TAB PO ONE (19:00)
--- NOTE | 2020-08-01 19:05 | NUR ---
PT CALLED SON TO BE PICKED UP FOR DISCHARGE, SON STATES HE WILL BE PICKING UP PT WITHIN 2 HOURS
--- NOTE | 2020-08-01 19:15 | NUR ---
RECEIVED PATIENT AWAKE, SLIGHTLY CONFUSED. WANDERING BACK AND FORTH BETWEEN BATHROOM AND GURNEY. "I JUST WANT TO GO. IM SO ANXIOUS. I WAS WAITING FOR MY SON BUT HE WONT BE HERE UNTIL TONIGHT." REASSURANCE GIVEN.
--- NOTE | 2020-08-01 19:20 | NUR ---
SPOKE WITH SON, MOODY. [phone]. HE WILL BE HERE IN 15 MINUTES.
[2020-08-01 19:34] VITALS: BP 136/83
== END 2020-08-01 19:34 | disposition home or self-care (01) ==
LOC: MED 17:13
DX: M54.5 Low back pain (principal); R30.0 Dysuria; R41.0 Disorientation, unspecified; Z88.2 Allergy status to sulfonamides; Z88.8 Allergy status to other drugs, medicaments and biological substances; Z79.899 Other long term (current) drug therapy
CPT/HCPCS: 81002; 81025; 96372; 99283; J2270; Q0162

== ENCOUNTER 2020-08-06 12:29 | Emergency (ER) | payer MEDICAID ==
[~2020-08-06] VITALS: Ht 162.6 cm; Wt 68.0 kg
[2020-08-06 12:44] VITALS: BP 111/49
[2020-08-06] MEDS ORDERED: NACL 0.9% 1,000 ML IV ONE (13:05)
[2020-08-06 13:35] LABS: BASOPHILS % (AUTO) 0.1 % (0.0-2.0); EOSINOPHILS % (AUTO) 0.2 % (0.0-4.0); HEMATOCRIT 32.9 % (36-48); HEMOGLOBIN 11.1 g/dL (12.0-16.0); LYMPHOCYTES # (AUTO) 0.7 K/uL (2.5-16.5); MEAN CORPUSCULAR HEMOGLOBIN 32 pg (27-31); MEAN CORPUSCULAR HGB CONC 34 g/dL (33-37); MEAN CORPUSCULAR VOLUME 95.1 fL (80-94); MONOCYTES # (AUTO) 0.6 K/uL (0.8-1.0); MONOCYTES % (AUTO) 9.1 % (1.7-9.3); NEUTROPHILS # (AUTO) 5.3 K/uL (1.8-7.7); NEUTROPHILS % (AUTO) 79.6 % (42.2-75.2); PLATELET COUNT (AUTO) 185 K/uL (140-450); RED BLOOD CELL COUNT(AUTO) 3.46 MIL/uL (4.20-5.40); WHITE BLOOD COUNT (AUTO) 6.6 K/uL (4.8-10.8)
[2020-08-06 13:53] LABS: ALBUMIN 3.5 g/dL (3.4-5.0); ANION GAP 12.6 (8-16); ASPARTATE AMINOTRANSFERASE 66 U/L (15-37); CARBON DIOXIDE 26.9 mmol/L (21-32); CHLORIDE 107 mmol/L (98-107); CREATININE 1.1 mg/dL (0.6-1.3); GFR ARICAN-AMERICAN 67 mL/min (>90); GLUCOSE 98 mg/dL (74-106); POTASSIUM 4.5 mmol/L (3.5-5.1); SODIUM SERUM 142 mmol/L (136-145); TOTAL BILIRUBIN 0.4 mg/dL (0.0-1.0); UREA NITROGEN, BLOOD 14 mg/dL (7-18)
[2020-08-06 14:19] LABS: ACETAMINOPHEN < 0.5 ug/ml (10-30)
[2020-08-06 14:40] LABS: BARBITURATE, URINE NEGATIVE ng/ml (NEG <=200); BENZODIAZEPINE, URINE NEGATIVE ng/mL (NEG <=200); CANNABINOID, URINE POSITIVE ng/mL (NEG <=50); COCAINE, URINE NEGATIVE ng/mL (NEG <=300); OPIATE, URINE NEGATIVE ng/mL (NEG <=2000); PHENCYCLIDINE SCREEN,URINE NEGATIVE ng/mL (NEG <=25)
[2020-08-06 15:08] VITALS: BP 118/70
== END 2020-08-06 15:11 | disposition home or self-care (01) ==
LOC: MED 12:29
DX: F12.10 Cannabis abuse, uncomplicated (principal); Z85.43 Personal history of malignant neoplasm of ovary; Z79.899 Other long term (current) drug therapy; Z88.2 Allergy status to sulfonamides; Z88.8 Allergy status to other drugs, medicaments and biological substances
CPT/HCPCS: 36415; 80053; 80305; 85025; 96360; 99283; G0480; J7030

== ENCOUNTER 2020-08-07 17:45 | Emergency (ER) | payer MEDICAID ==
[~2020-08-07] VITALS: Ht 162.6 cm; Wt 77.1 kg
[2020-08-07 17:49] VITALS: BP 130/74
--- NOTE | 2020-08-07 17:57 | NUR ---
55YO F C/O LOW BACK PAIN, ABDOMINAL PAIN AND HEADACHE X 3 DAYS. PT ALSO COMPLAINS OF LEFT FOOT PAIN AND REDNESS X 2 DAYS. DENIES FEVER, COUGH, DYSURIA. UPON ASSESSMENT, VSS. AOX4. NORMAL HEART RATE REGULAR RHYTHM. CLEAR BREATH SOUNDS. ABDOMEN SOFT, NONTENDER. WITH 1+ PITTING EDEMA ON LEFT FOOT. ABLE TO AMBULATE STEADILY. PT POSITIONED IN BED COMFORTABLY WITH 2 SIDERAILS UP. ERMD MADE AWARE OF PT STATUS. PMH: OVARIAN CANCER & SUGERY (OCTOBER 2007), HYSTERECTOMY, VENTURA KIDNEY STONES
[2020-08-07] MEDS: HYDROcodone/APAP 5/325 MG 1 TAB TAB PO ONE (19:02)
--- NOTE | 2020-08-07 19:15 | NUR ---
REPORT GIVEN TO KAMI LANDIN. ALL CARE TRANSFERRED AT THIS TIME.
--- NOTE | 2020-08-07 19:23 | NUR ---
RECEIVED REPORT FROM SONU MCCLURE
--- NOTE | 2020-08-07 19:46 | NUR ---
PT IS STILL C/O PAIN 04/12, [facility] RE[facility] MORE [facility]S. NOTIFIED
[2020-08-07] MEDS: ACETAMINOPHEN EXTRA STRENGTH 500 MG TAB PO ONE (20:28)
--- NOTE | 2020-08-07 20:46 | NUR ---
FRANKO JANSEN DONE AND SENT TO LAB
--- NOTE | 2020-08-07 20:46 | NUR ---
WAITING FOR COPY OF X-RAY
--- NOTE | 2020-08-07 20:47 | NUR ---
SPLONT PLACED AND CRUTCH TRAINING PROVIDED BY EMT
[2020-08-07 21:13] VITALS: BP 130/74
--- NOTE | 2020-08-07 21:14 | NUR ---
Patient discharged with v/s stable. Written and verbal after care instructions given and explained. Patient verbalized understanding. Ambulatory WITH CRUTCHES to home. All questions addressed prior to discharge. Advised to follow up with PMD. PT PROVIDED WITH ULTRASOUND AND CD OF X-RAY
== END 2020-08-07 20:50 | disposition home or self-care (01) ==
LOC: MED 17:45
DX: S62.303A Unspecified fracture of third metacarpal bone, left hand, initial encounter for closed fracture (principal); S62.305A Unspecified fracture of fourth metacarpal bone, left hand, initial encounter for closed fracture; S62.307A Unspecified fracture of fifth metacarpal bone, left hand, initial encounter for closed fracture; M54.5 Low back pain; R41.0 Disorientation, unspecified; Z88.2 Allergy status to sulfonamides; Z88.8 Allergy status to other drugs, medicaments and biological substances; Z85.9 Personal history of malignant neoplasm, unspecified; X58.XXXA Exposure to other specified factors, initial encounter; Y93.89 Activity, other specified; Y92.89 Other specified places as the place of occurrence of the external cause; Y99.8 Other external cause status
CPT/HCPCS: 29515; 73610; 73630; 93971; 99284; U0003